=== PATIENT | male | born 1965 | race Caucasian/White ===

== ENCOUNTER 2017-06-30 09:10 | Emergency (ER) | payer OTHER, SELFPAY ==
[2017-06-30 09:15] VITALS: BP 162/102; PULSE 83; RESP 18; TEMP 36.8; O2SAT 95; BMI 33.3
--- NOTE | 2017-06-30 09:26 | XR_ITS ---
XR chest portable Ordering Physician: Rosalino Torres MD Patient Age: 52 years: Male HISTORY: ITS.REASON: chest pain TECHNIQUE: AP portable chest COMPARISON :February 20, 2016 CXR FINDINGS We again see some slight coarsening of markings toward the lung bases bilaterally similar to the 2016 study this most likely reflecting mild chronic changes. There may be slight additional atelectasis at the right base. Difficult to exclude scant infiltrate but favor atelectasis. No pneumothorax. No pleural effusion. Heart james and mediastinal structures satisfactory. Cardiac monitoring some place. Mediastinum upper normal width reflect AP projection. IMPRESSION: --------- No definitive acute findings. MILD accentuation of markings toward the lung bases bilaterally right greater than left . this appearance similar to previous chest films more likely reflecting chronic changes.
--- NOTE | 2017-06-30 09:35 | [facility].EDCP ---
ED Disposition Clinical Impression: Cervicalgia Back pain Qualifiers: Back pain location: thoracic back pain Chronicity: unspecified Back pain laterality: midline Qualified Code(s): M54.6 - Pain in thoracic spine Disposition: Home, Self-Care Condition on Discharge: Fair Additional Instructions: alternate ice and heat and continue to use whichever helps the most Prescriptions: Diclofenac Potassium [Diclofenac 50mg Tab] 50 mg PO BID 30 Days #60 tab Methocarbamol [Robaxin 750mg Tab] 750 mg PO BID 30 Days #60 tab Time of Disposition: 16:20 - Critical Care Critical Care Time: No Attestation: On , the high probability of a clinically significant, sudden or life threatening deterioration of the following system(s) required my full and direct attention, intervention and personal management. The time I documented below is in addition to time spent performing reported procedures but includes the following listed in this critical care notation. Medical Decision Making - Medical Records Medical records reviewed: Yes: I reviewed the patient's medical records. Vital Signs: 06/30/17 09:15 Temperature 98.2 F Temperature Source Oral Pulse Rate [Right Radial] 83 Respiratory Rate 18 Blood Pressure [Right Arm] 162/102 Blood Pressure Mean [Right Arm] 122 Blood Pressure Source [Right Arm] Automatic Cuff Blood Pressure Position [Right Arm] Supine 02 Sat by Pulse Oximetry 95 Oxygen Delivery Method Room Air - Lab Data Lab results reviewed: Yes: I reviewed the patient's lab results. Lab Results 06/30/17 09:55: WBC 3.8 L, RBC 5.32, Hgb 16.3, Hct 49.0, MCV 92.1, MCH 30.7, MCHC 33.3, RDW 13.8, Plt Count 179, MPV 8.3, Neut % (Auto) 65.6, Lymph % (Auto) 20.3, Curry % (Auto) 10.0 H, Eos % (Auto) 3.6, Baso % (Auto) 0.4, Neut # (Auto) 2.5, Lymph # (Auto) 0.8, Curry # (Auto) 0.4, Eos # (Auto) 0.1, Baso # (Auto) 0.0 06/30/17 09:55: Sodium 140, Potassium 3.8, Chloride 105, Carbon Dioxide 28, Anion Gap 10.8, BUN 17, Creatinine 0.85, Estimated Creat Clear 132, Estimated GFR 95, Est GFR ( Amer) 115, Glucose 98, Calcium 8.5, Total Bilirubin 0.3, AST 13 L, ALT 46, Alkaline Phosphatase 124 H, Total Creatine Kinase 66, CK-MB (CK-2) < 0.5, CK-MB (CK-2) Rel Index 0.8, Troponin I < 0.02, Total Protein 7.8, Albumin 3.8, Globulin 4.0 H, Albumin/Globulin Ratio 1.0 L, Phenytoin 15.9 Result diagrams: 06/30/17 09:55 06/30/17 09:55 Orders (Tests/Meds): ED MEDICATIONS Discontinued Medications Generic Name Dose Route Start Last Admin Trade Name Freq PRN Reason Stop Dose Admin Aspirin 324 mg 06/30/17 09:28 06/30/17 10:02 Aspirin 81mg Chewable Tablet PO 06/30/17 09:29 324 mg ONCE ONE Administration Nitroglycerin 0.4 mg 06/30/17 09:28 06/30/17 10:02 Nitrostat 0.4mg Sl Tablet SL 06/30/17 09:29 1 tab ONCE ONE Administration - Radiology Data #1 Image(s): Chest Image Reviewed: Yes I reviewed the patient's radiology results, Yes I discussed the image results w/the radiologist Preliminary Findings: Normal/NAD - CT Data CT Scan: C-Spine, Chest Time Received: 16:[address] Reviewed: Yes: I have reviewed the patient's CT results, I discussed the CT results w/the radiologist, I have viewed the radiologist's interpretation Preliminary Findings: Normal/NAD - Mamadou Inquiry Pt receiving controlled substance: No Mamadou was queried for this patient: No Chest Pain HPI - General Chief Complaint: Chest Pain Stated Complaint: chest pain Time Seen by Provider: 06/30/17 09:31 Mode of Arrival: EMS Limitations: No Limitations Description of Symptoms (Recalled from ER Triage Doc. by RN): pt c/o midsternal chest pain that radiates to his left back. - History of Present Illness HPI narrative: Pt a resident at [facility] and sent to the ED today with complaints of chest pain and upper back pain. He has a history of seizures and appears to be mentally challenged and does not recall having any
--- NOTE | 2017-06-30 09:38 | ED_ITS ---
ED Disposition Clinical Impression: Cervicalgia Back pain Qualifiers: Back pain location: thoracic back pain Chronicity: unspecified Back pain laterality: midline Qualified Code(s): M54.6 - Pain in thoracic spine Disposition: Home, Self-Care Condition on Discharge: Fair Additional Instructions: alternate ice and heat and continue to use whichever helps the most Prescriptions: Diclofenac Potassium [Diclofenac 50mg Tab] 50 mg PO BID 30 Days #60 tab Methocarbamol [Robaxin 750mg Tab] 750 mg PO BID 30 Days #60 tab Time of Disposition: 16:20 - Critical Care Critical Care Time: No Attestation: On , the high probability of a clinically significant, sudden or life threatening deterioration of the following system(s) required my full and direct attention, intervention and personal management. The time I documented below is in addition to time spent performing reported procedures but includes the following listed in this critical care notation. Medical Decision Making - Medical Records Medical records reviewed: Yes: I reviewed the patient's medical records. Vital Signs: 06/30/17 09:15 Temperature 98.2 F Temperature Source Oral Pulse Rate [Right Radial] 83 Respiratory Rate 18 Blood Pressure [Right Arm] 162/102 Blood Pressure Mean [Right Arm] 122 Blood Pressure Source [Right Arm] Automatic Cuff Blood Pressure Position [Right Arm] Supine 02 Sat by Pulse Oximetry 95 Oxygen Delivery Method Room Air - Lab Data Lab results reviewed: Yes: I reviewed the patient's lab results. Lab Results 06/30/17 09:55: WBC 3.8 L, RBC 5.32, Hgb 16.3, Hct 49.0, MCV 92.1, MCH 30.7, MCHC 33.3, RDW 13.8, Plt Count 179, MPV 8.3, Neut % (Auto) 65.6, Lymph % (Auto) 20.3, Mason % (Auto) 10.0 H, Eos % (Auto) 3.6, Baso % (Auto) 0.4, Neut # (Auto) 2.5, Lymph # (Auto) 0.8, Mason # (Auto) 0.4, Eos # (Auto) 0.1, Baso # (Auto) 0.0 06/30/17 09:55: Sodium 140, Potassium 3.8, Chloride 105, Carbon Dioxide 28, Anion Gap 10.8, BUN 17, Creatinine 0.85, Estimated Creat Clear 132, Estimated GFR 95, Est GFR ( Amer) 115, Glucose 98, Calcium 8.5, Total Bilirubin 0.3 , AST 13 L, ALT 46, Alkaline Phosphatase 124 H, Total Creatine Kinase 66, CK-MB (CK-2) < 0.5, CK-MB (CK-2) Rel Index 0.8, Troponin I < 0.02, Total Protein 7.8, Albumin 3.8, Globulin 4.0 H, Albumin/Globulin Ratio 1.0 L, Phenytoin 15.9 Result diagrams: 06/30/17 09:55 06/30/17 09:55 Orders (Tests/Meds): ED MEDICATIONS Discontinued Medications Generic Name Dose Route Start Last Admin Trade Name Freq PRN Reason Stop Dose Admin Aspirin 324 mg 06/30/17 09:28 06/30/17 10:02 Aspirin 81mg Chewable Tablet PO 06/30/17 09:29 324 mg ONCE ONE Administration Nitroglycerin 0.4 mg 06/30/17 09:28 06/30/17 10:02 Nitrostat 0.4mg Sl Tablet SL 06/30/17 09:29 1 tab ONCE ONE Administration - Radiology Data #1 Image(s): Chest Image Reviewed: Yes I reviewed the patient's radiology results, Yes I discussed the image results w/the radiologist Preliminary Findings: Normal/NAD - CT Data CT Scan: C-Spine, Chest Time Received: 16:[address] Reviewed: Yes: I have reviewed the patient's CT results, I discussed the CT results w/the radiologist, I have viewed the radiologist's interpretation Preliminary Findings: Normal/NAD - Mamadou Inquiry Pt receiving controlled substance: No Mamadou was queried for this patient
[2017-06-30 10:12] LABS: Basophils % 0.4 % (0.1-2.0); Eosinophils # 0.1 K/mm3 (0.0-0.4); Eosinophils % 3.6 % (0.1-12.0); Hemoglobin 16.3 g/dL (14.1-18.0); Lymphocytes # 0.8 K/mm3 (0.7-4.5); Lymphocytes % 20.3 K/mm3 (10-50); Mean Corpuscular HGB Conc 33.3 g/dL (31.8-35.4); Mean Corpuscular Hemoglobin 30.7 pg (27.0-31.2); Mean Corpuscular Volume 92.1 fl (80-94); Mean Platelet Volume 8.3 fl (7.4-10.4); Monocytes # 0.4 K/mm3 (0.1-1.0); Neutrophils # 2.5 K/mm3 (1.8-7.8); Neutrophils % 65.6 % (37.0-80.0); Platelet Count 179 K/mm3 (142-424); Red Blood Count 5.32 M/mm3 (4.60-6.20); Red Cell Distribution Width 13.8 % (11.5-17.5); White Blood Count 3.8 K/mm3 (4.8-10.8)
[2017-06-30 10:37] LABS: Alanine Aminotransferase 46 U/L (12-78); Albumin Level 3.8 gm/dL (3.4-5.0); Alkaline Phosphatase 124 U/L (46-116); Anion Gap 10.8 mEq/L (5-15); Aspartate Amino Transferase 13 U/L (15-37); Bilirubin,Total 0.3 mg/dL (0.2-1.0); Blood Urea Nitrogen 17 mg/dL (7-18); CKMB Relative Index 0.8 U/L (0-4.0); Calcium 8.5 mg/dL (8.5-10.1); Carbon Dioxide 28 mmol/L (21.0-32.0); Chloride 105 mmol/L (98-107); Creatine Kinase 66 U/L (39-308); Creatine Kinase MB < 0.5 mg/ml (0.0-3.6); Creatinine Clearance Estimated 132 mL/min (0-300); Creatinine,Serum 0.85 mg/dL (0.70-1.30); Estimated Glomerular Filt Rate 95 ml/min (>60); GFR (African American) 115 ML/MIN (>60); Glucose 98 mg/dL (74-106); Phenytoin (Dilantin) 15.9 ug/mL (10-20); Potassium 3.8 mmoL/L (3.5-5.1); Sodium 140 mmol/L (136-145); Total Protein,Serum 7.8 gm/dL (6.4-8.2); Troponin I < 0.02 ng/ml (0.00-0.06)
--- NOTE | 2017-06-30 12:51 | CT_ITS ---
CT thoracic spine wo con Ordering Physician: Rosalino Torres MD Patient Age: 52 years: Male HISTORY: ITS.REASON: severe painhelical CT scanning performed to the thoracic spine with sagittal and coronal reconstructions on CT workstation TECHNIQUE: Helical CT scanning performed through the thoracic spine with sagittal and coronal reconstructions performed on CT workstation. COMPARISON :Previous 2 view chest 920 01/25 and 02/20/2016. Also CT chest 2016. FINDINGS The thoracic spine reveals no acute fracture. No significant change since February 08, 2016 CT chest spine reconstructions.. The spondylosis at C6/7 again noted. There is mild disc space narrowing at posterior aspect T1/T2 T2/3 and T4/5 similar to previous study. No posterior spurring or disc protrusion of note. Scant decreased height and wedging at T7 vertebral appears old and stable. Unchanged 2016 and may reflect old trauma. Mild endplate irregularities at T12 superior and inferior endplate are stable since prior studies reflects colordao node formation. Neural foramen appear patent throughout the thoracic spine. Anterior marginal osteophytes seen most evident at the mid and lower thoracic spine, anteriorly into the right. Regarding the chest otherwise note the prominent right hilum.... This appears similar and to the January 2016 exam. Reflect over elements nodes. I would note that there is decreased caliber of the airways particularly at the right and left bronchus. May reflect bronchospasm and/or some mild airway thickening is or wheezing currently? There is a small patchy area of airspace disease mainly reflecting atelectasis seen at the and possibly mild vascular congestion versus previous chest CT. The soft tissue inspiration also accentuates atelectasis and markings at lung bases. Slight groundglass opacity character is seen upper and lower lobes likely reflecting suboptimal inspiration Chest Mediastinal fat accounts for the generous width of the superior mediastinum. Thyroid upper normal ........... IMPRESSION: 1. No acute fracture or findings at the thoracic spine. No significant change thoracic spine since CT chest .. Stable multilevel Degenerative changes as briefly noted in text 2.. Compared to previous CT chest I would note rather diffuse narrowing of the airways, from sumi through right & left bronchus, to the hilar regions.-Is there wheezing?. Question if this may reflect element of bronchospasm and/or mild edematous thickening of airways.. Trachea unremarkable. 3. Lungs only partially imaged. However note Patchy airspace disease most evident at posterior posterior right lower lobe. This as well as minimal patchy areas groundglass opacity at lungs bilaterally likely reflecting less optimal inspiration and atelectasis.. No definitive consolidation or pneumonia but no pneumothorax nor pleural effusion
--- NOTE | 2017-06-30 12:51 | CT_ITS ---
CT cervical spine wo con Ordering Physician: Rosalino Torres MD Patient Age: 52 years: Male HISTORY: ITS.REASON: severe pain TECHNIQUE: Helical CT scanning performed the cervical spine with sagittal and coronal reconstructions on CT workstation. COMPARISON :No previous cervical studies FINDINGS The cervical spine is intact with no fracture nor subluxation. Degenerative changes C-spine are evident with cervical spondylosis and disc space narrowing most evident at C 6/7 at the C-spine. Foraminal encroachment most evident to the left more so than right at this C6/7 level due to the spurring. Mild/moderate central canal stenosis Uncovertebral joint hypertrophy to the right and left encroach upon the neural foramen bilaterally Less pronounced uncovertebral joint hypertrophy at C4/5 and C3/4 yielding mild encroachment upon the foramen bilaterally at these levels as well.. Nonspecific straightening C-spine. Prevertebral soft tissues appear normal. C1-C2 relationships appear normal. Facets appear intact with normal relationships. Only scant degenerative facet changes. Appear to be some redundant soft tissues about the hypopharynx and oropharynx with moderate to generous tonsils noted. Prominent cerumen at the left external canal. Large patient. IMPRESSION: ------ No acute fracture nor subluxation at cervical spine. Degenerative changes and cervical spondylosis as above. Most notable cervical spondylosis and foraminal encroachment at C6/7 , left> right
[2017-06-30 16:34] VITALS: BP 132/80; PULSE 80; RESP 18; TEMP 36.7; O2SAT 99
== END 2017-06-30 16:37 | disposition home or self-care (01) ==
PROVIDERS: Emergency Provider General Practice
DX: M54.2 Cervicalgia (principal); M54.6 Pain in thoracic spine; R07.9 Chest pain, unspecified; E11.9 Type 2 diabetes mellitus without complications; Z79.899 Other long term (current) drug therapy
CPT/HCPCS: 71045; 72125; 72128; 80053; 80185; 82550; 82553; 84484; 85025; 93005; 99282

== ENCOUNTER 2019-10-16 13:22 | Emergency (ER) | payer MEDICAID, SELFPAY ==
[2019-10-16 13:23] VITALS: BP 126/84; PULSE 75; RESP 16; TEMP 37.2; O2SAT 98; BMI 28.8
--- NOTE | 2019-10-16 13:33 | ECG_ITS ---
APPROVED REPORT Exam: Resting ECG HR:74 bpm ECG Measurements Heart Rate 74 AXES WV 148 P 39 QRSd 74 QRS 8 QT 376 T 44 QTc 417 <Conclusion> Normal sinus rhythm Incomplete RBBB Otherwise a Normal ECG Electronically signed by : Cuate Ramirez, 10/18/2019 08:58:40
--- NOTE | 2019-10-16 13:33 | XR_ITS ---
PROCEDURE: XR CHEST PORTABLE Patient Age:54Y CLINICAL HISTORY: chest pain COMPARISON: CXR1VP XR chest portable from 06/30/[address] chest wo con from 11/21/2017 CXR2V XR chest 2V from 11/21/2017 CXR2V XR chest 2V from 08/13/2018 FINDINGS: This is an AP semi-erect portable CXR and is compared to 08/13/2018 and November 2017 CXR On today's lordotic projection a left cervical rib measuring to 3.3 cm length incidentally noted. Small smaller short right cervical rib likely present as well. . Heart appears mildly enlarged but this may be accentuated by the AP portable and rather lordotic projection.. Normal pulmonary vascularity. Lungs otherwise clear with no focal consolidation or pneumonia. No lesions evident no pleural effusion or pneumothorax. Chest wall unremarkable. . IMPRESSION: Nothing definitely acute Lungs clear on this AP semi-erect somewhat lordotic portable chest . Heart upper normal in size Cervical rib on left most evident Dictated by: Grayson Macedo MD 10/16/2019 15:31 Electronically signed by Grayson Macedo MD in [place] 10/16/2019 15:31
--- NOTE | 2019-10-16 13:36 | [facility].EDGENADL ---
ED Disposition Clinical Impression: Lung abnormality Chest pain Qualifiers: Chest pain type: unspecified Qualified Code(s): R07.9 - Chest pain, unspecified Abdominal pain Qualifiers: Abdominal location: upper abdomen, unspecified Qualified Code(s): R10.10 - Upper abdominal pain, unspecified Vomiting Qualifiers: Vomiting type: unspecified Vomiting Intractability: non-intractable Nausea presence: with nausea Qualified Code(s): R11.2 - Nausea with vomiting, unspecified Disposition: Home, Self-Care Condition on Discharge: Good Instructions: DI for Chest Pain, DI for Abdominal Pain-Adult, DI for Vomiting -- Adult Additional Instructions: You will need to follow-up with your primary care provider concerning your lung abnormality within the next 2 to 3 days for reevaluation and further management. Drink plenty of water and non-caffeinated fluids, return to the emergency department for any acute new concerns or worsening symptoms. Referrals: Woodrow Perez MD [Primary Care Provider] - 3 days - Critical Care Critical Care Time: No Attestation: On 10/16/19, the high probability of a clinically significant, sudden or life threatening deterioration of the following system(s) required my full and direct attention, intervention and personal management. The time I documented below is in addition to time spent performing reported procedures but includes the following listed in this critical care notation. Medical Decision Making - Medical Records Medical records reviewed: Yes: I reviewed the patient's medical records. - Mamadou Inquiry Pt receiving controlled substance: No Vital Signs: 10/16/19 13:23 10/16/19 14:07 10/16/19 15:18 Temperature 99 F Temperature Source Oral Pulse Rate [Left Radial] 75 67 63 Respiratory Rate 16 Blood Pressure [Right Arm] 126/84 126/83 137/88 Blood Pressure Mean [Right Arm] 98 97 104 Blood Pressure Source [Right Arm] Automatic Cuff Automatic Cuff Blood Pressure Position [Right Arm] Sitting Sitting Sitting 02 Sat by Pulse Oximetry 98 96 96 Oxygen Delivery Method Room Air Room Air Room Air 10/16/19 15:41 Temperature Temperature Source Pulse Rate [Left Radial] 64 Respiratory Rate Blood Pressure [Right Arm] 134/88 Blood Pressure Mean [Right Arm] 103 Blood Pressure Source [Right Arm] Automatic Cuff Blood Pressure Position [Right Arm] Sitting 02 Sat by Pulse Oximetry 95 Oxygen Delivery Method Room Air - Lab Data Lab Results 10/16/19 13:30: WBC 4.4 L, RBC 5.00, Hgb 16.1, Hct 48.2, MCV 96.4 H, MCH 32.2 H, MCHC 33.4, RDW 14.5, Plt Count 181, MPV 8.3, Neut % (Auto) 64.4, Lymph % (Auto) 23.3, Norton % (Auto) 8.0, Eos % (Auto) 3.6, Baso % (Auto) 0.8, Neut # (Auto) 2.8, Lymph # (Auto) 1.0, Norton # (Auto) 0.4, Eos # (Auto) 0.2, Baso # (Auto) 0.0 10/16/19 13:30: Sodium 140, Potassium 4.0, Chloride 104, Carbon Dioxide 30, Anion Gap 10.0, BUN 19, Creatinine 0.90, Estimated Creat Clear 116, Estimated GFR 88, Est GFR ( Amer) 107, Glucose 118 H, Calcium 9.1, Total Bilirubin 0.4, AST 31, ALT 47, Alkaline Phosphatase 127 H, Troponin I < 0.01, Total Protein 7.9, Albumin 4.5, Globulin 3.4 H, Albumin/Globulin Ratio 1.3, Lipase 41 10/16/19 16:00: Urine Color Yellow, Urine Appearance Clear, Urine pH 7.5, Ur Specific [place] 1.010, Urine Protein Negative, Urine Glucose (UA) Negative, Urine Ketones Negative, Urine Blood Negative, Urine Nitrate Negative, Urine Bilirubin Negative, Urine Urobilinogen 0.2, Ur Leukocyte Esterase Negative, Urine RBC None, Urine WBC None, Ur Squamous Epith Cells Occasional, Urine Bacteria None Result diagrams: 10/16/19 13:30 10/16/19 13:30 Orders (Tests/Meds): ED MEDICATIONS Discontinued Medications Generic Name Dose Route Start Last Admin Trade Name Freq PRN Reason Stop Dose Admin Sodium Chloride 1,000 mls @ 999 mls/hr 10/16/19 13:45 10/16/19 13:44 Sod Chlor 0.9% 1000ml Bag IV 10/16/19 14:45 999 mls/hr .Q1H1M GRANT Administration Ioversol 7
[2019-10-16 13:48] LABS: Basophils % 0.8 % (0.1-2.0); Eosinophils # 0.2 K/mm3 (0.0-0.4); Eosinophils % 3.6 % (0.1-12.0); Hematocrit 48.2 % (42.0-52.0); Hemoglobin 16.1 g/dL (14.1-18.0); Lymphocytes % 23.3 % (10-50); Mean Corpuscular HGB Conc 33.4 g/dL (31.8-35.4); Mean Corpuscular Hemoglobin 32.2 pg (27.0-31.2); Mean Corpuscular Volume 96.4 fl (80-94); Mean Platelet Volume 8.3 fl (7.4-10.4); Monocytes # 0.4 K/mm3 (0.1-1.0); Neutrophils # 2.8 K/mm3 (1.8-7.8); Neutrophils % 64.4 % (37.0-80.0); Platelet Count 181 K/mm3 (142-424); Red Cell Distribution Width 14.5 % (11.5-17.5); White Blood Count 4.4 K/mm3 (4.8-10.8)
[2019-10-16 13:50] LABS: Chloride 104 mmol/L (98-107); Sodium 140 mmol/L (136-145)
[2019-10-16 13:52] LABS: Alanine Aminotransferase 47 U/L (12-78); Aspartate Amino Transferase 31 U/L (17-59); Blood Urea Nitrogen 19 mg/dl (9-20); Creatinine Clearance Estimated 116 mL/min (50-200); Estimated Glomerular Filt Rate 88 ml/min (>60); GFR (African American) 107 ML/MIN (>60)
[2019-10-16 13:53] LABS: Albumin Level 4.5 g/dl (3.5-5.0); Albumin/Globulin Ratio 1.3 (1.1-1.8); Alkaline Phosphatase 127 U/L (38-126); Bilirubin,Total 0.4 mg/dl (0.2-1.3); Calcium 9.1 mg/dl (8.4-10.2); Carbon Dioxide 30 mmol/L (22.0-30.0); Globulin 3.4 g/dL (1.3-3.2); Glucose 118 mg/dl (74-100); Lipase 41 U/L (23-300); Total Protein,Serum 7.9 g/dl (6.3-8.2)
--- NOTE | 2019-10-16 14:00 | CT_ITS ---
Procedure: CT ABDOMEN PELVIS W CON Patient Age:54Y CLINICAL INDICATION: abd pain, vomiting. Vomiting nausea COMPARISON: [facility] CT CHEST W/ CONTRAST from 11/04/2012 ABDPELW/O CT ABD PELVIS W/O CONTRAST from 10/24/2013 [facility] CTA-CHEST from 09/02/[address] chest wo con from 11/21/2017 TECHNIQUE: IV contrast: 75 cc Optiray 350. No oral contrast Helical axial images obtained with sagittal and coronal reformats. All CT scans at the facility use one or more dose reduction, viz: automated exposure control, ma/kV adjustment per patient size (including targeted exams where dose is matched to indication, i.e. head), or iterative reconstruction technique. FINDINGS: Lower thorax: Partially imaged generous right james appears slight prominent today. Generous right james with multiple calcified granulomatous nodes dates back to October 2012, August 2014 CT chest and November 2017. These calcified granulomatous nodes in part contribute to the generous right james but there is also a 11 mm low-density, near fluid density ovoid collection with moderate thick wall margin at right infrahilar region seen back on 2012.. This latter near fluid density with circumferential wall right infrahilar region is again seen today and appears slightly larger. Outer diameter measuring up to 2 cm. (Axial image 10, sagittal 44, coronal 46, 47)-overall right james and infrahilar region slight more generous and more prominent appearance, than previous studies. Also suspect partial blockage a lower lobe bronchus as noted on 2013 CT.. Recommend follow-up CT chest when feasible this can be done as outpatient with of this will benefit from follow-up as outpatient of possibly with pulmonary. Would suggests of subsequent CT chest with contrast as outpatient along with pulmonary consult as a may want to consider bronchoscopy at some point . Minimal airspace disease at posterior sulcus and along posterior aspect of RLL at right lung base. Of favor this reflects atelectasis but difficult to totally exclude minimal infiltrate. The left base with only scant if any atelectasis. . Borderline-mild cardiomegaly. Upper normal wall thickness distal esophagus. ABDOMEN: Liver: No masses or biliary dilatation. Gallbladder: Surgically removed. Common duct normal Pancreas: Unremarkable.. Spleen unremarkable Adrenals: unremarkable Kidneys/ureters: unremarkable PELVIS: Small urinary bladder. No calculi. No focal lesions evident. Prostate normal size. No free fluid pelvis. ---------GI tract -- Appendix well visualized and normal. Terminal ileum unremarkable Large bowel. Minimal stool right colon. Generous gas slightly distends hepatic flexure. Moderate gas throughout transverse colon. . Fairly empty descending colon.. Minimal stool throughout rectum Small bowel. No dilatation or obstruction. A few small to moderate air-fluid levels but the lower small bowel. Unimpressive the nonspecific.. No significant small nor large bowel wall thickening or inflammation. Stomach. Mild distension with moderate solid food Peritoneum: No abnormal fluid collections. No obvious inflammatory changes. No free air. Lymph nodes: No enlarged lymph nodes apparent. No remarkable mesenteric lymph nodes no on which a comes Vasculature: Unremarkable.. Aorta iliacs celiac artery and SMA satisfactory. No remarkable plaque Bones: No acute fracture. Degenerative changes L5/S1 disc space narrowing spondylosis disc bulge with facet hypertrophy most notable evident L5/S1 these features combine to yield moderate bilateral foraminal encroachment at this level.. Gradual progression degenerative changes here since 2014 IMPRESSION: A no acute findings abd
[2019-10-16 14:05] LABS: Troponin I < 0.01 ng/ml (0.00-0.034)
[2019-10-16 14:07] VITALS: BP 126/83; PULSE 67; O2SAT 96
--- NOTE | 2019-10-16 14:12 | PC.NURSE ---
Pt to rad.
--- NOTE | 2019-10-16 14:51 | PC.NURSE ---
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
[2019-10-16 15:18] VITALS: BP 137/88; PULSE 63; O2SAT 96
[2019-10-16 15:41] VITALS: BP 134/88; PULSE 64; O2SAT 95
[2019-10-16 16:06] LABS: Appearance,Urine CLEAR (Clear); Bilirubin,Urine Negative (Negative); Blood, Urine Negative (Negative); Color,Urine YELLOW (Yellow); Glucose,Urine (UA) Negative (Negative); Ketones,Urine Negative (Negative); Leukocyte Esterase,Urine Negative (Negative); Microscopic, Urine URINE MICROSCOPIC (MICROSCOPIC); Nitrate,Urine Negative (Negative); PH,Urine 7.5 (5.0-8.5); Protein,Urine Negative (Negative); Urobilinogen,Urine 0.2 EU/dl (0.2)
[2019-10-16 16:17] LABS: Squamous Epithelial Cell,Urine Occasional #/hpf (0-5)
--- NOTE | 2019-10-16 16:31 | PC.NURSE ---
Fletcher Melton aware that pt is ready for discharge.
[2019-10-16 16:37] VITALS: BP 142/73; PULSE 63; O2SAT 97
[2019-10-16 17:02] VITALS: BP 153/87; PULSE 87; RESP 16; TEMP 36.1; O2SAT 98
== END 2019-10-16 17:03 | disposition home or self-care (01) ==
PROVIDERS: Emergency Provider Emergency Medicine; PCP Emergency Medicine
DX: J98.4 Other disorders of lung (principal); R07.9 Chest pain, unspecified; R10.10 Upper abdominal pain, unspecified; E11.9 Type 2 diabetes mellitus without complications; Z79.899 Other long term (current) drug therapy
CPT/HCPCS: 71045; 74177; 80053; 81001; 83690; 84484; 85025; 93005; 96365; 96375; 99284; J2405; Q9967

== ENCOUNTER 2020-05-04 07:37 | Emergency (ER) | payer MEDICAID, SELFPAY ==
[2020-05-04] VITALS (8 sets, daily range): BP systolic 133–168; BP diastolic 53–101; PULSE 60–81; RESP 15–17; TEMP 37.2; O2SAT 92–98; BMI 32.3
--- NOTE | 2020-05-04 07:53 | XR_ITS ---
PROCEDURE: XR CHEST PORTABLE CLINICAL HISTORY: coughing up blood COMPARISON: CR CXR2V XR chest 2V from 11/21/2017 CR CXR2V XR chest 2V from 08/13/2018 CR XR CHEST PORTABLE from 10/16/[address] ANGIO CHEST from 05/04/2020 FINDINGS: The cardiomediastinal silhouette and pulmonary vascularity are within normal limits. There is mild prominence of the right hilum . No lobar consolidation or collapse. IMPRESSION: Prominence of the right hilum otherwise negative Dictated by: Rainer Garza MD 05/04/2020 14:04 Rainer Garza MD in [place] 05/04/2020 14:04
--- NOTE | 2020-05-04 07:55 | CT_ITS ---
PROCEDURE: CT ABDOMEN PELVIS W CON CLINICAL INDICATION: diarrhea, abd pain, COMPARISON: CT ABDPELW/O CT ABD PELVIS W/O CONTRAST from 12/20/[address] ABDOMEN PELVIS W CON from 10/16/2019 TECHNIQUE: IV Contrast: 75ML Isovue 370 Oral Contrast None Axial images obtained with sagittal and coronal reformats. All CT scans at the facility use one or more dose reduction, viz: automated exposure control, ma/kV adjustment per patient size (including targeted exams where dose is matched to indication, i.e. head), or iterative reconstruction technique. FINDINGS: There has been a prior cholecystectomy. There is a sub cm hypodensity in the left hepatic lobe. This is slightly more prominent compared to the previous exam measuring 6 mm previously measuring 4 mm possibly due to slice orientation. The spleen, adrenal glands, pancreas, and kidneys have an unremarkable appearance. There is minimal ectasia of the renal collecting system on both sides nonspecific. No ureteral calculi are evident. There is a small hiatal hernia. There is mild diffuse thickening of the colon from the transverse colon, descending colon and proximal sigmoid colon. Colitis is considered. No evidence of appendicitis. No evidence of diverticulitis. Bowel gas pattern is nonspecific with nondistended fluid-filled loops of small bowel in the mid to lower abdominal region. No pelvic mass or abnormal fluid collection of the pelvis. There are degenerative changes in the lumbar spine with degenerative disc disease at L5-S1 with prominent endplate osteophytes causing severe bilateral foraminal narrowing and lateral recess narrowing. There is a small umbilical hernia which contains fat. IMPRESSION: 1. Possible enterocolitis. 2. Nonspecific hypodensity left hepatic lobe slightly more prominent from the previous exam possibly due to slice orientation. Continued follow-up may confirm. Dictated by: Rainer Garza MD 05/04/2020 10:10 Rainer Garza MD in [facility] 05/04/2020 10:10
--- NOTE | 2020-05-04 08:05 | HMH.EDGENADL ---
ED Disposition Clinical Impression: Mass of right lung, Hemoptysis Disposition: Home, Self-Care Condition on Discharge: Fair Instructions: DI for Hemoptysis Additional Instructions: Dr. Perez will arrange further evaluation and bronchoscopy. Return to the emergency department if shortness of breath or severe coughing of large amounts of blood. Referrals: PCP,No [Non-Staff] - - Critical Care Critical Care Time: No Attestation: On 05/04/20, the high probability of a clinically significant, sudden or life threatening deterioration of the following system(s) required my full and direct attention, intervention and personal management. The time I documented below is in addition to time spent performing reported procedures but includes the following listed in this critical care notation. Medical Decision Making - Medical Records Medical records reviewed: Yes: I reviewed the patient's medical records. MR Comment: November 2017 aspirated chicken McNugget. Chart reviewed. - Mamadou Inquiry Pt receiving controlled substance: No Vital Signs: 05/04/20 07:37 05/04/20 08:07 05/04/20 08:51 Temperature 99.0 F Temperature Source Oral Pulse Rate [Right Brachial] 67 64 65 Respiratory Rate 15 Blood Pressure [Right Arm] 133/95 H 155/69 H 133/53 L Blood Pressure Mean [Right Arm] 107 97 79 Blood Pressure Source [Right Arm] Automatic Cuff Blood Pressure Position [Right Arm] Supine 02 Sat by Pulse Oximetry 94 L 92 L 95 Oxygen Delivery Method Room Air Room Air Room Air 05/04/20 09:00 05/04/20 09:56 05/04/20 10:30 Temperature Temperature Source Pulse Rate [Right Brachial] 60 68 73 Respiratory Rate 15 15 Blood Pressure [Right Arm] 147/92 H 160/90 H 146/101 H Blood Pressure Mean [Right Arm] 110 113 116 Blood Pressure Source [Right Arm] Automatic Cuff Blood Pressure Position [Right Arm] Sitting 02 Sat by Pulse Oximetry 95 96 96 Oxygen Delivery Method Room Air Room Air Room Air - Lab Data Lab Results 05/04/20 07:40: Urine Color Yellow, Urine Appearance Clear, Urine pH 6.0, Ur Specific [place] 1.025, Urine Protein Negative, Urine Glucose (UA) Negative, Urine Ketones Negative, Urine Blood Negative, Urine Nitrate Negative, Urine Bilirubin Negative, Urine Urobilinogen 0.2, Ur Leukocyte Esterase Negative, Urine RBC None, Urine WBC Occasional, Ur Squamous Epith Cells Occasional, Urine Bacteria Trace 05/04/20 08:15: WBC 5.0, RBC 4.90, Hgb 15.4, Hct 47.0, MCV 95.9 H, MCH 31.5 H, MCHC 32.8, RDW 14.3, Plt Count 157, MPV 8.6, Neut % (Auto) 64.0, Lymph % (Auto) 24.6, [place] % (Auto) 6.6, Eos % (Auto) 4.2, Baso % (Auto) 0.7, Neut # (Auto) 3.2, Lymph # (Auto) 1.2, [place] # (Auto) 0.3, Eos # (Auto) 0.2, Baso # (Auto) 0.0 05/04/20 08:15: Sodium 140, Potassium 3.9, Chloride 105, Carbon Dioxide 30, Anion Gap 8.9, BUN 18, Creatinine 0.90, Estimated Creat Clear 120, Estimated GFR 88, Est GFR ( Amer) 106, Glucose 95, Calcium 8.9, Total Bilirubin 0.5, AST 27, ALT 39, Alkaline Phosphatase 108, Total Protein 7.4, Albumin 4.2, Globulin 3.2, Albumin/Globulin Ratio 1.3, Amylase 63, Lipase 41, Phenytoin 17.8 05/04/20 08:15: SARS-CoV-2 IgG Ab (Rapid) Negative, SARS-CoV-2 IgM Ab (Rapid) Negative 05/04/20 08:15: Lactate 1.2 Result diagrams: 05/04/20 08:15 05/04/20 08:15 Orders (Tests/Meds): ED MEDICATIONS Generic Name Dose Route Start Last Admin Trade Name Freq PRN Reason Stop Dose Admin Sodium Chloride 3 ml 05/04/20 08:18 Sodium Chloride 3% 15ml Neb IH 06/03/20 08:17 ONCE PRN INDUCE SPUTUM COLLECTION Discontinued Medications Generic Name Dose Route Start Last Admin Trade Name Freq PRN Reason Stop Dose Admin Sodium Chloride 1,000 mls @ 999 mls/hr 05/04/20 08:00 05/04/20 08:26 Sod Chlor 0.9% 1000ml Bag IV 05/04/20 09:00 999 mls/hr .Q1H1M GRANT Administration Iopamidol 75 ml 05/04/20 09:30 05/04/20 09:31 Iopamidol-370 (76%);100ml Bottle IV 05/04/20 09:31 75 ml ONCE ONE Administration
--- NOTE | 2020-05-04 08:05 | CT_ITS ---
PROCEDURE: CT ANGIO CHEST CLINCIAL INDICATION: hemoptysis COMPARISON: CT CHESTWO CT chest wo con from 11/21/2017 CR XR CHEST PORTABLE from 05/04/2020 TECHNIQUE: IV Contrast: 70ML Isovue 370 Axial images obtained with sagittal and coronal reformats. All CT scans at the facility use one or more dose reduction, viz: automated exposure control, ma/kV adjustment per patient size (including targeted exams where dose is matched to indication, i.e. head), or iterative reconstruction technique. FINDINGS: There is mild prominence of the right lobe of the thyroid gland nonspecific. No evidence of aortic aneurysm or dissection. No evidence of pulmonary embolus. Peripheral pulmonary vessels are not well opacified. There has been development of a right hilar mass in the infrahilar region. This measures 3.8 by 2 cm. This is causing some narrowing of the inferior pulmonary vein on the right. This is encasing the medial basilar segmental artery to the right lower lobe. There is some heterogeneous density within the pulmonary arteries at this region but no definite embolus. There is some coarse calcification noted within the mass. The mass encircles the right lower lobe bronchus causing some narrowing of the right lower lobe bronchus. There is mild diffuse narrowing of the distal trachea and right and left mainstem bronchi. Degenerative changes are present in thoracic spine. IMPRESSION: 1. Right infrahilar mass suspicious for neoplasm. Suggest pulmonary consult. The mass may be amenable to biopsy by bronchoscopy. 2. No definite pulmonary embolus. 3. Diffuse decreased AP dimension of the trachea and mainstem bronchi which may be seen with tracheal bronchomalacia. Dictated by: Rainer Garza MD 05/04/2020 10:03 Rainer Garza MD in [place] 05/04/2020 10:03
[2020-05-04 08:06] LABS: Microscopic, Urine URINE MICROSCOPIC (MICROSCOPIC)
[2020-05-04 08:14] LABS: Appearance,Urine CLEAR (Clear); Bilirubin,Urine Negative (Negative); Blood, Urine Negative (Negative); Color,Urine YELLOW (Yellow); Glucose,Urine (UA) Negative (Negative); Ketones,Urine Negative (Negative); Leukocyte Esterase,Urine Negative (Negative); Nitrate,Urine Negative (Negative); Protein,Urine Negative (Negative); Specific Gravity, Urine 1.025 (1.005-1.030); Urobilinogen,Urine 0.2 EU/dl (0.2)
[2020-05-04 08:23] LABS: Bacteria,Urine Trace /lpf; Squamous Epithelial Cell,Urine Occasional #/hpf (0-5); WBC,Urine Occasional #/hpf (0-3)
[2020-05-04 08:28] LABS: Basophils % 0.7 % (0.1-2.0); Eosinophils # 0.2 K/mm3 (0.0-0.4); Eosinophils % 4.2 % (0.1-12.0); Hemoglobin 15.4 g/dL (14.1-18.0); Lymphocytes # 1.2 K/mm3 (0.7-4.5); Lymphocytes % 24.6 % (10-50); Mean Corpuscular HGB Conc 32.8 g/dL (31.8-35.4); Mean Corpuscular Hemoglobin 31.5 pg (27.0-31.2); Mean Corpuscular Volume 95.9 fl (80-94); Mean Platelet Volume 8.6 fl (7.4-10.4); Monocytes # 0.3 K/mm3 (0.1-1.0); Monocytes % 6.6 % (1.7-9.3); Neutrophils # 3.2 K/mm3 (1.8-7.8); Platelet Count 157 K/mm3 (142-424); Red Cell Distribution Width 14.3 % (11.5-17.5)
[2020-05-04 08:38] LABS: Lactic Acid 1.2 mmol/L (0.7-2.1)
[2020-05-04 08:39] LABS: Chloride 105 mmol/L (98-107); Potassium 3.9 mmoL/L (3.5-5.1); Sodium 140 mmol/L (136-145)
[2020-05-04 08:41] LABS: Amylase 63 U/L (30-110); Blood Urea Nitrogen 18 mg/dl (9-20); Creatinine Clearance Estimated 120 mL/min (50-200); Estimated Glomerular Filt Rate 88 ml/min (>60); GFR (African American) 106 ML/MIN (>60)
[2020-05-04 08:42] LABS: Alanine Aminotransferase 39 U/L (12-78); Albumin Level 4.2 g/dl (3.5-5.0); Albumin/Globulin Ratio 1.3 (1.1-1.8); Alkaline Phosphatase 108 U/L (38-126); Anion Gap 8.9 mEq/L (5-15); Aspartate Amino Transferase 27 U/L (17-59); Bilirubin,Total 0.5 mg/dl (0.2-1.3); Calcium 8.9 mg/dl (8.4-10.2); Carbon Dioxide 30 mmol/L (22.0-30.0); Globulin 3.2 g/dL (1.3-3.2); Glucose 95 mg/dl (74-100); Lipase 41 U/L (23-300); Total Protein,Serum 7.4 g/dl (6.3-8.2)
[2020-05-04 09:04] LABS: Phenytoin (Dilantin) 17.8 ug/ml (10-20)
[2020-05-04 09:14] LABS: Coronavirus 19 IgG Antibody Negative (Negative); Coronavirus 19 IgM Antibody Negative (Negative)
--- NOTE | 2020-05-04 09:20 | PC.NURSE ---
Pt to rad.
--- NOTE | 2020-05-04 09:42 | PC.NURSE ---
Pt returned from rad.
--- NOTE | 2020-05-04 10:43 | PC.NURSE ---
speaking with dr wayne
--- NOTE | 2020-05-04 10:44 | PC.NURSE ---
Dr Starks speaking with dr Perez
--- NOTE | 2020-05-04 11:59 | PC.NURSE ---
notified [facility] staff kena that pt is ready for discharge.
--- NOTE | 2020-05-04 12:18 | PC.NURSE ---
pt waiting on his ride, has been discharged, refuses to wear bp cuff and pulse ox
== END 2020-05-04 12:41 | disposition home or self-care (01) ==
PROVIDERS: Emergency Provider Emergency Medicine; PCP Emergency Medicine
DX: R91.8 Other nonspecific abnormal finding of lung field (principal); R04.2 Hemoptysis; Z01.84 Encounter for antibody response examination; H54.8 Legal blindness, as defined in USA; K21.9 Gastro-esophageal reflux disease without esophagitis; J45.909 Unspecified asthma, uncomplicated; E11.9 Type 2 diabetes mellitus without complications; I10 Essential (primary) hypertension; F20.9 Schizophrenia, unspecified; F17.210 Nicotine dependence, cigarettes, uncomplicated; Z79.899 Other long term (current) drug therapy
CPT/HCPCS: 71045; 71275; 74177; 80053; 80185; 81001; 82150; 83605; 83690; 85025; 86328; 87040; 96365; 99284; Q9967

== ENCOUNTER → 2020-05-22 09:43 | Outpatient (CLI) | payer MEDICAID, SELFPAY ==
[2020-05-22 11:11] LABS: Coronavirus 19 IgG Antibody Negative (Negative); Coronavirus 19 IgM Antibody Negative (Negative)
--- NOTE | 2020-05-24 13:18 | P.PN_ITS ---
[facility] Anesthesia Checklist - Patient Identification Patient Identification: Arm Band - Structural Data Admitted From: Long-term Nursing [facility] Planned Operative Procedure/s: bronchoscopy Consent for Planned Operative Procedure(s) Verified: Yes Verified Documents: Surgical Consent - NPO Status Verified Time NPO: 00:00 - Anesthesia Plan Anesthesia Risk discussed: Yes Anesthesia Plan: Verified Anesthesia Type: General - Preoperative Comments Pre-Operative Comments: non [facility] History I have reviewed the patient's past medical history: Yes Medical History: Reports:: Hypertension Denies:: Cancer, Diabetes Mellitus Type 1, Diabetes Mellitus Type 2, MRSA Comment Only: Seizures (UNKNOWN) *Have you ever received a pneumonia vaccine?: No *Have you received a flu vaccine this season?: Yes Anesthesia experience/problems:: non Other Surgeries: Yes: Other Amputation: No - *Social History Smoking Status: Never smoker Tobacco Type: cigarettes # Packs/Day (cigarettes): 1 Alcohol Intake: never Alcohol Intake Frequency:: 0-2 drinks per day Substance Use Type: denies use *Occupational Status:: disabled Housing: assisted living facility Household Members: other *Travel in the last 8 weeks: None Family Hx:: Unable to obtain
== END ==
PROVIDERS: PCP Emergency Medicine; Visit Provider Internal Medicine Pulmonary Disease
DX: Z01.812 Encounter for preprocedural laboratory examination (principal); Z11.52 Encounter for screening for COVID-19; R06.00 Dyspnea, unspecified; R91.8 Other nonspecific abnormal finding of lung field; R04.2 Hemoptysis
CPT/HCPCS: 36415; 86328

== ENCOUNTER 2020-05-24 09:54 | Day surgery (SDC) | payer MEDICAID, SELFPAY ==
[2020-05-24] VITALS (8 sets, daily range): BP systolic 111–144; BP diastolic 59–99; PULSE 73–92; RESP 16–18; TEMP 36.3–36.8; O2SAT 92–97; BMI 38.0
--- NOTE | 2020-05-24 16:42 | HMH.BRONCH ---
- Procedure: Date: 05/24/20 Patient Date of :: 1965 Procedure Performed:: Bronchoscopy with bronchoalveolar lavage Bronchoscopy with endobronchial ultrasound with fine-needle aspiration Indications:: Right hilar mass Performing Provider:: Xuan Blount MD Referring Provider:: Dr. Perez Sedation:: General anesthesia Procedure:: Clean diagnostic bronchoscopy was advanced through this 8 and half size ET tube and airways were examined up to subsegmental bronchi patient appeared to have severe bronchomalacia with anteroposterior collapse his trachea, along with right main and left mainstem bronchi. BAL was performed in the right lower lobe medial segment where there appeared to be significant airway inflammation. BAL samples were sent for cell count differential along with bacterial fungal and AFB cultures. No cytopathology was ordered on the BAL specimen. After lavage was performed, please clean EBUS scope advance the ET tube and hilar and mediastinal lymph node stations were examined with no significant lymphadenopathy identified amendable via bronchoscopy. The noted right hilar mass was visualized from the right lower lobe bronchus and FNA was performed via EBUS scope. A total of 5 passes were performed to recreate tissue. Pathology was onsite. No evidence of malignancy noted in the preliminary review. Pathologist have seen significant neutrophils and pus which is concerning for infection. Along with cytopathology EBUS samples were also sent for bacterial fungal and AFB cultures. Patient tolerated the procedure well. Estimated blood loss is minimal. We will follow the patient in the clinic as previously scheduled. Findings:: Please see the procedure note Recommendations:: Please see the procedure note Complications:: None Estimated blood obtained (mL): 5
== END 2020-05-24 16:37 | disposition home or self-care (01) ==
LOC: OR 09:56
PROVIDERS: PCP Emergency Medicine; Visit Provider Internal Medicine Pulmonary Disease
PROC: (CPT 31624; principal; 2020-05-24 11:30)
DX: R91.8 Other nonspecific abnormal finding of lung field (principal); R04.2 Hemoptysis; R59.0 Localized enlarged lymph nodes; Z79.899 Other long term (current) drug therapy
CPT/HCPCS: 31624; 31653; 87070; 87077; 87102; 87116; 87186; 87205; 87206; 89051; J0330; J2405

== ENCOUNTER → 2020-07-27 13:02 | Outpatient (CLI) | payer MEDICAID, SELFPAY ==
--- NOTE | 2020-07-27 13:04 | CT_ITS ---
PROCEDURE: CT CHEST W CON CLINCAL INDICATION: Nodule follwoup, follow-up hilar mass Abnormal CTA chest 05/04/20 COMPARISON: CT CT ANGIO CHEST from 05/04/2020 TECHNIQUE: IV Contrast: 75ml Isovue 370 Axial images obtained with sagittal and coronal reformats. All CT scans at the facility use one or more dose reduction, viz: automated exposure control, ma/kV adjustment per patient size (including targeted exams where dose is matched to indication, i.e. head), or iterative reconstruction technique. FINDINGS: Right hilar mass is once again noted as previously described. Low-density changes are present in the central aspect of the mass. The mass encases the artery to the medial basilar segment of the right lower lobe. There some calcification noted within the mass. The hilar mass may be very slightly smaller in the AP plane. This however is questionable. The lesion does not appear larger.. Mild atelectatic changes are present in the right lower lobe. There is once again noted decreased AP diameter of the trachea and mainstem bronchi. Coronary artery calcifications are present. Upper abdominal images are unremarkable. IMPRESSION: Persistent right hilar mass which may be very slightly smaller in the AP plane. This however is at best questionable. The mass does not appear any larger. Low-density changes are present within this area. This could represent necrotic lymph nodes from neoplasm or granulomatous process such as histoplasmosis or TB. Please correlate with clinical parameters. Tracheal bronchomalacia. Dictated by: Rainer Garza MD 07/28/2020 13:16 Rainer Garza MD in [place] 07/28/2020 13:16
[2020-07-27 13:56] LABS: Blood Urea Nitrogen 17 mg/dl (9-20); Estimated Glomerular Filt Rate 88 ml/min (>60); GFR (African American) 106 ML/MIN (>60)
== END ==
PROVIDERS: PCP Emergency Medicine; Visit Provider Internal Medicine Pulmonary Disease
DX: R06.00 Dyspnea, unspecified (principal); R91.8 Other nonspecific abnormal finding of lung field
CPT/HCPCS: 36415; 71260; 82565; 84520; Q9967

== ENCOUNTER → 2020-08-03 13:37 | Outpatient (CLI) | payer MEDICAID, SELFPAY ==
[2020-08-03 14:42] LABS: Basophils % 0.5 % (0.1-2.0); Eosinophils # 0.1 K/mm3 (0.0-0.4); Eosinophils % 2.5 % (0.1-12.0); Hematocrit 45.3 % (42.0-52.0); Hemoglobin 14.7 g/dL (14.1-18.0); Lymphocytes # 0.8 K/mm3 (0.7-4.5); Lymphocytes % 17.6 % (10-50); Mean Corpuscular HGB Conc 32.4 g/dL (31.8-35.4); Mean Corpuscular Hemoglobin 30.8 pg (27.0-31.2); Mean Corpuscular Volume 95.2 fl (80-94); Mean Platelet Volume 8.4 fl (7.4-10.4); Monocytes # 0.3 K/mm3 (0.1-1.0); Monocytes % 6.2 % (1.7-9.3); Neutrophils # 3.2 K/mm3 (1.8-7.8); Neutrophils % 73.3 % (37.0-80.0); Platelet Count 187 K/mm3 (142-424); Red Blood Count 4.76 M/mm3 (4.60-6.20); Red Cell Distribution Width 14.3 % (11.5-17.5); White Blood Count 4.4 K/mm3 (4.8-10.8)
[2020-08-03 15:11] LABS: Erythrocyte Sedimentation Rate 2 mm/hr (0-20)
[2020-08-03 15:42] LABS: C-Reactive Protein 9.4 mg/L (0-4)
[2020-08-07 17:09] LABS: Histoplasma Gal'mannan Ag Ur <0.5 (<0.5 ng/mL)
[2020-08-08 02:14] LABS: QuantiFERON-TB Gold Plus Negative (Negative)
[2020-08-08 21:07] LABS: Aspergillus flavus Negative (Neg:<1:1); Aspergillus fumigatus Negative (Neg:<1:1); Aspergillus niger Negative (Neg:<1:1)
[2020-08-09 18:02] LABS: Blastomyces Antibody Negative (Neg:<1:1); Fungitell(Beta D-Glucan) Serum 34 pg/mL (<80)
[2020-08-10 08:39] LABS: Aspergillus Antigen, BAL/Serum 0.03 Index (0.00-0.49)
== END ==
PROVIDERS: Visit Provider Internal Medicine Pulmonary Disease
DX: J45.909 Unspecified asthma, uncomplicated (principal); J84.10 Pulmonary fibrosis, unspecified; J18.9 Pneumonia, unspecified organism; J84.9 Interstitial pulmonary disease, unspecified; R06.00 Dyspnea, unspecified
CPT/HCPCS: 36415; 85025; 85651; 86140; 86480; 86606; 86612; 87305; 87385; 87449

== ENCOUNTER 2020-09-26 06:04 | Emergency (ER) | payer MEDICAID, SELFPAY ==
--- NOTE | 2020-09-26 06:08 | ECG_ITS ---
APPROVED REPORT Exam: Resting ECG HR:69 bpm ECG Measurements Heart Rate 69 AXES LA 142 P 52 QRSd 76 QRS 27 QT 400 T 35 QTc 428 Conclusion Normal sinus rhythm Normal ECG Electronically signed by : Yaya Almonte, 09/26/2020 17:09:43
[2020-09-26 06:13] VITALS: BP 161/97; PULSE 68; RESP 16; TEMP 36.6; O2SAT 97; BMI 30.8
[2020-09-26 06:30] VITALS: BP 137/87; PULSE 66; O2SAT 95
--- NOTE | 2020-09-26 06:30 | CT_ITS ---
PROCEDURE INFORMATION: Exam: CTA Chest With Contrast Exam date and time: 09/26/2020 6:30 AM Age: 55 years old Clinical indication: Cough and other: Chest pain; Patient HX: Cough SOA chest pain; Additional info: Cough, SOA, chest pain TECHNIQUE: Imaging protocol: Computed tomographic angiography of the chest with contrast. 3D rendering (Not supervised by radiologist): MIP and/or 3D reconstructed images were created by the technologist. Radiation optimization: All CT scans at this facility use at least one of these dose optimization techniques: automated exposure control; mA and/or kV adjustment per patient size (includes targeted exams where dose is matched to clinical indication); or iterative reconstruction. Contrast material: ISOVUE; Contrast volume: 70 ml; Contrast route: INTRAVENOUS (IV); COMPARISON: CT ANGIO CHEST 05/04/2020 9:27 AM FINDINGS: Pulmonary arteries: No evidence of pulmonary embolus. Aorta: No aortic aneurysm. No aortic dissection. Lungs: Minor bibasal dependent atelectasis. Pleural spaces: Unremarkable. No pneumothorax. No pleural effusion. Heart: Unremarkable. No cardiomegaly. No pericardial effusion. Lymph nodes: Calcified hilar and mediastinal lymph nodes. Bones/joints: Moderate multilevel spondylosis with subtle convex right scoliosis. Soft tissues: Unremarkable. IMPRESSION: 1. No evidence of pulmonary embolus or aortic dissection. 2. Minor bibasal dependent atelectasis. 3. Other nonacute findings above.
--- NOTE | 2020-09-26 06:31 | XR_ITS ---
PROCEDURE INFORMATION: Exam: XR Chest Exam date and time: 09/26/2020 6:31 AM Age: 55 years old Clinical indication: Cough and other: Chest pain; Patient HX: Cough SOA chest pain; Additional info: Cough, chest pain, SOA TECHNIQUE: Imaging protocol: XR of the chest. Views: 1 view. COMPARISON: CT ANGIO CHEST 09/26/2020 7:11 AM FINDINGS: Lungs: Subtle bilateral lower lung opacities. Pleural spaces: Unremarkable. No pleural effusion. No pneumothorax. Heart/Mediastinum: Suboptimal inspiratory effort limiting assessment of heart size and vascularity. Bones/joints: Unremarkable. IMPRESSION: 1. Suboptimal inspiratory effort limiting assessment of heart size and vascularity. 2. Suspicion for subtle bilateral lower lung infiltrates.
[2020-09-26 06:38] LABS: Basophils % 0.4 % (0.1-2.0); Eosinophils # 0.2 K/mm3 (0.0-0.4); Eosinophils % 3.4 % (0.1-12.0); Hemoglobin 14.6 g/dL (14.1-18.0); Lymphocytes # 1.3 K/mm3 (0.7-4.5); Mean Corpuscular HGB Conc 32.5 g/dL (31.8-35.4); Mean Corpuscular Hemoglobin 30.1 pg (27.0-31.2); Mean Corpuscular Volume 92.6 fl (80-94); Mean Platelet Volume 7.7 fl (7.4-10.4); Monocytes # 0.4 K/mm3 (0.1-1.0); Neutrophils % 71.3 % (37.0-80.0); Platelet Count 211 K/mm3 (142-424); Red Blood Count 4.86 M/mm3 (4.60-6.20); Red Cell Distribution Width 14.1 % (11.5-17.5); White Blood Count 6.9 K/mm3 (4.8-10.8)
[2020-09-26 06:45] VITALS: BP 152/93; PULSE 75; RESP 15; O2SAT 99
--- NOTE | 2020-09-26 06:45 | HMH.EDCP ---
ED Disposition Clinical Impression: Atypical chest pain Disposition: Home, Self-Care Condition on Discharge: Good Instructions: DI for Atypical Chest Pain Additional Instructions: resume prev orders Referrals: Woodrow Perez MD [Primary Care Provider] - - Critical Care Critical Care Time: No Attestation: On 09/26/20, the high probability of a clinically significant, sudden or life threatening deterioration of the following system(s) required my full and direct attention, intervention and personal management. The time I documented below is in addition to time spent performing reported procedures but includes the following listed in this critical care notation. Medical Decision Making - Medical Records Medical records reviewed: Yes: I reviewed the patient's medical records. - Mamadou Inquiry Pt receiving controlled substance: No Vital Signs: 09/26/20 06:13 09/26/20 06:30 09/26/20 06:45 Temperature 97.9 F Temperature Source Oral Pulse Rate 66 75 Pulse Rate [Right] 68 Respiratory Rate 16 15 Blood Pressure 137/87 152/93 H Blood Pressure [Right Arm] 161/97 H Blood Pressure Mean [Right Arm] 118 Blood Pressure Source Automatic Cuff Blood Pressure Source [Right Arm] Automatic Cuff Blood Pressure Position [Right Arm] Supine 02 Sat by Pulse Oximetry 97 95 99 Oxygen Delivery Method Room Air Room Air 09/26/20 07:36 Temperature Temperature Source Pulse Rate 74 Pulse Rate [Right] Respiratory Rate Blood Pressure 162/93 H Blood Pressure [Right Arm] Blood Pressure Mean [Right Arm] Blood Pressure Source Blood Pressure Source [Right Arm] Blood Pressure Position [Right Arm] 02 Sat by Pulse Oximetry 94 L Oxygen Delivery Method - Lab Data Lab results reviewed: Yes: I reviewed the patient's lab results. Lab Results 09/26/20 06:18: WBC 6.9, RBC 4.86, Hgb 14.6, Hct 45.0, MCV 92.6, MCH 30.1, MCHC 32.5, RDW 14.1, Plt Count 211, MPV 7.7, Neut % (Auto) 71.3, Lymph % (Auto) 19.0, [place] % (Auto) 6.0, Eos % (Auto) 3.4, Baso % (Auto) 0.4, Neut # (Auto) 5.0, Lymph # (Auto) 1.3, [place] # (Auto) 0.4, Eos # (Auto) 0.2, Baso # (Auto) 0.0 09/26/20 06:18: Sodium 141, Potassium 3.8, Chloride 104, Carbon Dioxide 31 H, Anion Gap 9.8, BUN 13, Creatinine 0.90, Estimated Creat Clear 115, Estimated GFR 88, Est GFR ( Amer) 106, Glucose 95, Calcium 9.2, Total Bilirubin 0.5, Direct Bilirubin 0.4, Conjugated Bilirubin 0.0, Indirect Bilirubin 0.1, Unconjugated Bilirubin 0.1, AST 27, ALT 29, Alkaline Phosphatase 115, Troponin I < 0.01, C-Reactive Protein 11.0 H, Total Protein 7.8, Albumin 4.4, Globulin 3.4 H, Albumin/Globulin Ratio 1.3 09/26/20 06:18: ESR 16 09/26/20 06:18: Procalcitonin 0.052, Phenytoin 9.1 L, Phenobarbital 20.9 Result diagrams: 09/26/20 06:18 09/26/20 06:18 Orders (Tests/Meds): ED MEDICATIONS Discontinued Medications Generic Name Dose Route Start Last Admin Trade Name Freq PRN Reason Stop Dose Admin Sodium Chloride 1,000 mls @ 999 mls/hr 09/26/20 06:30 09/26/20 06:26 Sod Chlor 0.9% 1000ml Bag IV 09/26/20 07:30 999 mls/hr .Q1H1M GRANT Administration Iopamidol 70 ml 09/26/20 07:22 09/26/20 07:23 Iopamidol-370 (76%);100ml Bottle IV 09/26/20 07:23 70 ml ONCE ONE Administration Nitroglycerin 0.4 mg 09/26/20 06:25 09/26/20 06:27 Nitroglycerin 0.4mg Sl Tablet SL 09/26/20 06:26 Not Given ONCE ONE Sodium Chloride 10 ml 09/26/20 07:22 09/26/20 07:23 Sodium Chloride 0.9% 10ml Syr (Rad Only) IV 09/26/20 07:23 10 ml ONCE ONE Administration Sodium Chloride 50 ml 09/26/20 07:22 09/26/20 07:23 0.9 % Sodium Chloride 50 Ml Vial IV 09/26/20 07:23 50 ml ONCE ONE Administration ORDERS Category Date Time Status Troponin I Q3H Lab 09/26/20 09:30 Ordered Troponin I Q3H Lab 09/26/20 12:30 Ordered - ECG Data Tracing #1 Normal Sinus Rhythm: Yes Ischemic changes: non-specific ST-T wave changes Medical Decision Narrativ
[2020-09-26 06:51] LABS: Alanine Aminotransferase 29 U/L (12-78); Albumin Level 4.4 g/dl (3.5-5.0); Albumin/Globulin Ratio 1.3 (1.1-1.8); Alkaline Phosphatase 115 U/L (38-126); Anion Gap 9.8 mEq/L (5-15); Aspartate Amino Transferase 27 U/L (17-59); Bilirubin,Direct 0.4 mg/dl (0.0-0.4); Bilirubin,Indirect 0.1 mg/dL (0.0-0.9); Bilirubin,Total 0.5 mg/dl (0.2-1.3); Bilirubin,Unconjugated 0.1 mg/dL (0.0-1.1); Blood Urea Nitrogen 13 mg/dl (9-20); Calcium 9.2 mg/dl (8.4-10.2); Carbon Dioxide 31 mmol/L (22.0-30.0); Chloride 104 mmol/L (98-107); Creatinine Clearance Estimated 115 mL/min (50-200); Estimated Glomerular Filt Rate 88 ml/min (>60); GFR (African American) 106 ML/MIN (>60); Globulin 3.4 g/dL (1.3-3.2); Glucose 95 mg/dl (74-100); Potassium 3.8 mmoL/L (3.5-5.1); Sodium 141 mmol/L (136-145); Total Protein,Serum 7.8 g/dl (6.3-8.2)
[2020-09-26 06:55] LABS: Phenytoin (Dilantin) 9.1 ug/ml (10-20)
[2020-09-26 07:10] LABS: Troponin I < 0.01 ng/ml (0.00-0.034)
[2020-09-26 07:11] LABS: Procalcitonin 0.052 ng/mL (0.0-2.0)
[2020-09-26 07:24] LABS: Erythrocyte Sedimentation Rate 16 mm/hr (0-20)
[2020-09-26 07:36] VITALS: BP 162/93; PULSE 74; O2SAT 94
--- NOTE | 2020-09-26 07:43 | PC.NURSE ---
UA sent to lab.
[2020-09-26 08:00] VITALS: BP 162/97; O2SAT 93
--- NOTE | 2020-09-26 08:04 | PC.NURSE ---
Contacted [facility] to inform pt is DC
[2020-09-26 08:15] VITALS: BP 162/93; PULSE 74; RESP 16; TEMP 36.6; O2SAT 94
== END 2020-09-26 08:17 | disposition home or self-care (01) ==
PROVIDERS: Emergency Provider Emergency Medicine; PCP Emergency Medicine
DX: R07.89 Other chest pain (principal); I10 Essential (primary) hypertension; E78.5 Hyperlipidemia, unspecified; F20.9 Schizophrenia, unspecified; H54.7 Unspecified visual loss; F17.210 Nicotine dependence, cigarettes, uncomplicated
CPT/HCPCS: 71045; 71275; 80053; 80076; 80184; 80185; 84145; 84484; 85025; 85651; 86140; 93005; 96365; 96375; 99282; Q9967

== ENCOUNTER → 2020-12-07 15:01 | Outpatient (CLI) | payer MEDICAID, SELFPAY | PROVIDERS: Visit Provider Internal Medicine Pulmonary Disease | DX: R06.00 Dyspnea, unspecified (principal); R91.8 Other nonspecific abnormal finding of lung field | CPT/HCPCS: 87070; 87205 ==

== ENCOUNTER → 2020-12-25 08:17 | Outpatient (CLI) | payer MEDICAID, SELFPAY ==
--- NOTE | 2020-12-25 08:22 | CT_ITS ---
PROCEDURE: CT CHEST WO CON CLINICAL INDICATION: sob Shortness of air, follow-up pulmonary nodule COMPARISON: CT CHESTWO CT chest wo con from 11/21/[address] CHEST W CON from 07/27/[address] ANGIO CHEST from 09/26/2020 TECHNIQUE: Axial images obtained with sagittal and coronal reformats. All CT scans at the facility use one or more dose reduction, viz: automated exposure control, ma/kV adjustment per patient size (including targeted exams where dose is matched to indication, i.e. head), or iterative reconstruction technique. FINDINGS: HEART AND MEDIASTINAL STRUCTURES: There is a mildly prominent node in the anterior mediastinum at 12 mm and may be slightly larger compared to the previous exam. Coronary artery calcifications and calcified mediastinal and hilar nodes are present. Hilar evaluation somewhat limited without IV contrast. LUNGS AND PLEURAL SPACES: There is generalized respiratory motion artifact. There are mild atelectatic changes in the lung bases. There is an oval soft tissue mass in the right lower lobe contiguous with the inferior aspect of the hilum on the right. This measures 4.6 by 2.6 cm previously at 4.5 x 1.9 cm. This is anterior to the right lower lobe bronchus. BONY STRUCTURES: Degenerative changes thoracic spine with bridging osteophytes in the midthoracic spine. UPPER ABDOMEN: 8 mm hypodensity left hepatic lobe unchanged. Prior cholecystectomy ADDITIONAL FINDINGS: No other significant abnormalities. IMPRESSION: Right infrahilar mass once again noted and appears slightly more bulky. This in part could be related to unopacified overlying pulmonary veins. Adenopathy or lung cancer is considered.. Dictated by: Rainer Garza MD 12/25/2020 11:13 Rainer Garza MD in [facility] 12/25/2020 11:13
== END ==
PROVIDERS: PCP Emergency Medicine; Visit Provider Internal Medicine Pulmonary Disease
DX: R06.00 Dyspnea, unspecified (principal); R91.8 Other nonspecific abnormal finding of lung field
CPT/HCPCS: 71250

== ENCOUNTER → 2021-04-09 09:58 | Outpatient (CLI) | payer MEDICAID, SELFPAY | PROVIDERS: PCP Emergency Medicine; Visit Provider Nurse Practitioner | DX: Z20.822 Contact with and (suspected) exposure to COVID-19 (principal) | CPT/HCPCS: C9803; U0003; U0005 ==

== ENCOUNTER 2021-04-10 09:29 | Day surgery (SDC) | payer MEDICAID, SELFPAY ==
[2021-04-10] VITALS (10 sets, daily range): BP systolic 121–153; BP diastolic 72–94; PULSE 62–82; RESP 16–20; TEMP 36.4–43; O2SAT 92–98; BMI 32.9
--- NOTE | 2021-04-10 12:18 | P.PN_ITS ---
[facility] Anesthesia Checklist - Patient Identification Patient Identification: Arm Band - Structural Data Admitted From: Long-term Nursing Facility Planned Operative Procedure/s: Exam under anesthesia, Colonoscopy Consent for Planned Operative Procedure(s) Verified: Yes Verified Documents: Surgical Consent, History and Physical - NPO Status Verified Time NPO: 00:00 - Additional verifications Anesthesia Reactions: No Hx Blood Transfusions: No Blood Transfusion Reaction: No - Airway Assessment C-Spine Mobility Assessed: Yes (mp2) TMJ Mobility Assessed: Yes Dentition: Edentulous - Neurological Assessment Level of Consciousness: Awake, Alert - Anesthesia Plan Anesthesia Risk discussed: Yes Anesthesia Plan: Verified ASA Class: III Anesthesia Type: General [facility] History I have reviewed the patient's past medical history: Yes Medical History: Reports:: Asthma, Hypertension, Seizures (UNKNOWN) Denies:: Cancer, Diabetes Mellitus Type 1, Diabetes Mellitus Type 2, Internal Pacemaker, MRSA *Have you ever received a pneumonia vaccine?: No *Have you received a flu vaccine this season?: Yes Other Medical History: Denies: Blood Transfusion Reaction Anesthesia experience/problems:: nac Other Surgeries: Yes: Other. No: Pacemaker Amputation: No Fractures: Yes - *Social History Last grade of school completed: 11th or 12th Smoking Status: Never smoker Tobacco Type: cigarettes # Packs/Day (cigarettes): 1 Alcohol Intake: never Alcohol Intake Frequency:: 0-2 drinks per day Substance Use Type: marijuana *Occupational Status:: disabled Housing: assisted living facility Household Members: other *Travel in the last 8 weeks: None Family Hx:: Unable to obtain
--- NOTE | 2021-04-10 12:58 | HMH.OPNOTE ---
Date of procedure: 04/10/21 Pre-op Diagnosis:: Abnormal PET scan finding of the anal canal Diarrhea Post-op Diagnosis:: Same Procedure performed:: Anorectal exam under anesthesia Colonoscopy with biopsies and polypectomy Surgeon:: Patrick Zapien MD FORMULA CHECKER:: Lionel Houser Anesthesia: LMA Estimated blood loss (mL): 2 Clinical Note:: Patient is a 56-year-old white male who is apparently legally blind who is a resident at [facility]. He has been evaluated by Dr. Blount for possible lung mass. He did apparently have a PET CT scan which revealed increased uptake at the anal canal. He was referred for surgical consultation. It appears that the patient did have a colonoscopy in August [address] Nickolas Doyle which was normal. This was for some increased bowel frequency. He had a colonoscopy in August [address] Newman for increased bowel frequency which was normal. Patient does describe some nondescript abdominal pain. Apparently he has also had a significant amount of watery diarrhea. Given the findings on PET scan and clinical scenario plan was made for rectal exam under anesthesia and possible colonoscopy. Operative findings:: Circumferential nonbleeding internal and external hemorrhoids Transverse colon polyp Fair colonic preparation of the right colon Operative note:: Patient was taken to the operating room. He was positioned in supine position. General anesthesia was induced via LMA. He was positioned in modified lithotomy position. Digital examination was performed which revealed some external and minor internal prolapsing hemorrhoids which appeared noninflamed and nonbleeding. Fabens anoscope was inserted. There was some circumferential internal hemorrhoids. No mass noted. Variable stiffness Olympus colonoscope was inserted via the anus. It was advanced to the cecum. Right colon preparation was somewhat fair but adequate visualization was achieved with irrigation and suctioning. Ileocecal valve and appendiceal orifice were clearly identified. As the colonoscope was withdrawn several cold biopsies were obtained of the right colon and sent as specimen random right colon biopsies to evaluate for microscopic colitis. In the transverse colon there was a polyp noted about 6 mm in size removed with cold snare. Residual polyp base was removed with cold biopsy forceps. This was sent as transverse colon polyp. As the colonoscope was withdrawn to the left colon irrigation and suctioning was performed. Several biopsies were obtained and sent as random left colon biopsies to evaluate for microscopic colitis. Within the rectum retroflexion was performed which revealed internal nonbleeding hemorrhoids as previously noted. Colonoscope was withdrawn. Recommendations: No obvious etiology for his diarrhea. May be medical/functional/dietary. Follow-up on biopsy results to assess for microscopic colitis. Given the polyp likely repeat colonoscopy 3 years in light of concomitant fair colonic preparation. Findings on PET scan may be secondary to circumferential internal and external hemorrhoids. Condition: stable Disposition: PACU Specimens:: Internal/external hemorrhoids Transverse colon polyp Fair colonic preparation Complications:: None immediately apparent
--- NOTE | 2021-04-10 13:05 | HMH.ANESI ---
[facility] Anesthesia Record Part I Intake, IV Amount: 600 Estimated blood loss (mL): 0 Urine output (mL): 0 Blood Pressure: 121/72 SaO2: 92 Pulse Rate: 62 Respiratory Rate: 16 Temperature: 99.3 F Patient is:: Drowsy, Stable Stable to PACU at:: 13:00
--- NOTE | 2021-04-10 13:34 | PC.NURSE ---
1328-detailed report called to YOSELIN Barros 1590-pt transported to post op via stretcher w/gabriel rails up and left in care of YOSELIN Barros with bed locked in lowest position, vss, pt stable
--- NOTE | 2021-04-11 11:28 | P.PN_ITS ---
[facility] Anesthesia Record Part II Discharge Time: 13:30 Destination: Surgical Day Care (OP Surgery) PACU nurse assessment reviewed?: Yes Patient Condition:: Good Anesthesia Complications:: None Swallowing reflex intact?: Yes Cyanosis?: No Blood Pressure: 130/82 Pulse Rate: 74 Temperature: 98.7 F Mental Status: Alert & Oriented Pain level:: 0 Nausea and/or vomitting:: None Intake, IV Amount: 0
[2021-04-11 11:29] VITALS: BP 130/82; PULSE 74; TEMP 37.1
== END 2021-04-10 14:01 ==
PROVIDERS: PCP Emergency Medicine; Visit Provider Surgery
PROC: (CPT 45380; principal; 2021-04-10 11:15)
DX: K64.0 First degree hemorrhoids (principal); K63.5 Polyp of colon; J45.909 Unspecified asthma, uncomplicated; I10 Essential (primary) hypertension; Z79.899 Other long term (current) drug therapy
CPT/HCPCS: 45380; 45385; 96374; J2405

== ENCOUNTER 2021-10-27 11:35 | Emergency (ER) | payer MEDICAID, SELFPAY ==
[2021-10-27] VITALS (9 sets, daily range): BP systolic 132–186; BP diastolic 74–100; PULSE 59–66; RESP 15–19; TEMP 36.7–36.9; O2SAT 95–97; BMI 25.8
--- NOTE | 2021-10-27 12:01 | HMH.EDGENADL ---
ED Disposition Clinical Impression: Fall (on) (from) other stairs and steps, initial encounter, Laceration Thoracic compression fracture Qualifiers: Encounter type: initial encounter Thoracic vertebra fracture level: T6 Qualified Code(s): S22.050A - Wedge compression fracture of T5-T6 vertebra, initial encounter for closed fracture Disposition: Home, Self-Care Condition on Discharge: Good Instructions: DI for Laceration Repair Additional Instructions: Please note that patient has a concern for age-indeterminate compression fracture without causing instability to the spinal cord. If patient has any difficulty ambulating, worsening pain, please refer to primary care physician for further imaging or return to the emergency department for reassessment. I believe that given patient's complaints have been similar to past complaints, this finding is chronic. Referrals: Woodrow Perez MD [Primary Care Provider] - - Critical Care Critical Care Time: No Attestation: On , the high probability of a clinically significant, sudden or life threatening deterioration of the following system(s) required my full and direct attention, intervention and personal management. The time I documented below is in addition to time spent performing reported procedures but includes the following listed in this critical care notation. Medical Decision Making - Medical Records Medical records reviewed: Yes: I reviewed the patient's medical records. - Mamadou Inquiry Pt receiving controlled substance: No Vital Signs: 10/27/21 11:36 10/27/21 12:34 10/27/21 13:47 Temperature 98.0 F Temperature Source Oral Pulse Rate 61 62 Pulse Rate [Left Radial] 66 Respiratory Rate 18 15 18 Blood Pressure 163/99 H 143/87 H Blood Pressure [Right Arm] 186/89 H Blood Pressure Mean 109 93 Blood Pressure Mean [Right Arm] 121 Blood Pressure Source [Right Arm] Automatic Cuff Blood Pressure Position [Right Arm] Sitting 02 Sat by Pulse Oximetry 96 95 97 Oxygen Delivery Method Room Air Room Air 10/27/21 14:04 10/27/21 14:34 10/27/21 15:04 Temperature Temperature Source Pulse Rate 60 59 L 60 Pulse Rate [Left Radial] Respiratory Rate 17 16 17 Blood Pressure 154/94 H 142/90 H 136/76 Blood Pressure [Right Arm] Blood Pressure Mean 105 101 97 Blood Pressure Mean [Right Arm] Blood Pressure Source [Right Arm] Blood Pressure Position [Right Arm] 02 Sat by Pulse Oximetry 96 96 97 Oxygen Delivery Method 10/27/21 15:34 Temperature Temperature Source Pulse Rate 61 Pulse Rate [Left Radial] Respiratory Rate 18 Blood Pressure 135/78 Blood Pressure [Right Arm] Blood Pressure Mean 97 Blood Pressure Mean [Right Arm] Blood Pressure Source [Right Arm] Blood Pressure Position [Right Arm] 02 Sat by Pulse Oximetry 97 Oxygen Delivery Method - Lab Data Lab results reviewed: Yes: I reviewed the patient's lab results. Lab Results 10/27/21 12:47: WBC 3.7 L, RBC 4.92, Hgb 15.6, Hct 47.6, MCV 96.8 H, MCH 31.6 H, MCHC 32.7, RDW 15.1, Plt Count 186, MPV 8.5, Neut % (Auto) 61.4, Lymph % (Auto) 22.3, Coke % (Auto) 8.7, Eos % (Auto) 3.9, Baso % (Auto) 3.7 H, Neut # (Auto) 2.3, Lymph # (Auto) 0.8, Coke # (Auto) 0.3, Eos # (Auto) 0.1, Baso # (Auto) 0.1 10/27/21 12:47: Sodium 140, Potassium 4.2, Chloride 103, Carbon Dioxide 30, Anion Gap 11.2, BUN 20, Creatinine 0.80, Estimated Creat Clear 107, Estimated GFR 100, Est GFR ( Amer) 121, Glucose 92, Calcium 9.2, Total Bilirubin 0.5, AST 40, ALT 53, Alkaline Phosphatase 130 H, Total Protein 8.4 H, Albumin 4.8, Globulin 3.6 H, Albumin/Globulin Ratio 1.3 Result diagrams: 10/27/21 12:47 10/27/21 12:47 Orders (Tests/Meds): ED MEDICATIONS Discontinued Medications Generic Name Dose Route Start Last Admin Trade Name Freq PRN Reason Stop Dose Admin Acetaminophen 1,000 mg 10/27/21 12:03 10/27/21 12:12 Acetaminophen 500mg Tab PO 10/27/21 12:04 1,000 mg ONCE ONE
--- NOTE | 2021-10-27 12:02 | CT_ITS ---
PROCEDURE INFORMATION: Exam: CT Head Without Contrast Exam date and time: 10/27/2021 1:03 PM Age: 56 years old Clinical indication: Injury or trauma; Fall; Blunt trauma (contusions or hematomas); Without loss of consciousness; Additional info: Fall, head injury TECHNIQUE: Imaging protocol: Computed tomography of the head without contrast. Radiation optimization: All CT scans at this facility use at least one of these dose optimization techniques: automated exposure control; mA and/or kV adjustment per patient size (includes targeted exams where dose is matched to clinical indication); or iterative reconstruction. COMPARISON: [facility] CT soft tissue neck wo con 11/21/2017 2:13 PM FINDINGS: Brain: No intracranial hemorrhage. No evidence of acute territorial infarct or cerebral edema. Mild prominence of the cortical sulci consistent with age-appropriate intracerebral volume loss. Periventricular white matter tract changes consistent with microvascular disease. No mass effect or midline shift. Cerebral ventricles: No ventriculomegaly. Paranasal sinuses: Bilateral sphenoid and ethmoid sinus inflammatory changes. Mastoid air cells: Visualized mastoid air cells are well aerated. Bones/joints: Unremarkable. No acute fracture. Soft tissues: Unremarkable. IMPRESSION: 1. No evidence of acute intracranial abnormality. 2. Mild intracerebral volume loss.
--- NOTE | 2021-10-27 12:02 | CT_ITS ---
PROCEDURE INFORMATION: Exam: CT Cervical Spine Without Contrast Exam date and time: 10/27/2021 1:06 PM Age: 56 years old Clinical indication: Injury or trauma; Fall; Blunt trauma TECHNIQUE: Imaging protocol: Computed tomography of the cervical spine without contrast. Radiation optimization: All CT scans at this facility use at least one of these dose optimization techniques: automated exposure control; mA and/or kV adjustment per patient size (includes targeted exams where dose is matched to clinical indication); or iterative reconstruction. COMPARISON: [facility] CT cervical spine wo con 06/30/2017 1:17 PM FINDINGS: Bones/joints: Cervical spondylosis with multilevel disc degeneration most pronounced C5-6 and C6-7. Moderately severe bilateral neural foraminal stenosis at C6-7 secondary to posterolateral osteophytic ridge. Discs/Spinal canal/Neural foramina: See Bones/joints finding. Lungs: Lung apices are normal. Soft tissues: Unremarkable. IMPRESSION: 1. No evidence of acute osseous injury. 2. Cervical spondylosis with multilevel disc degeneration most pronounced at C5-6 and C6-7.
--- NOTE | 2021-10-27 12:02 | CT_ITS ---
PROCEDURE INFORMATION: Exam: CT Thoracic Spine Without Contrast Exam date and time: 10/27/2021 1:09 PM Age: 56 years old Clinical indication: Injury or trauma; Fall; Blunt trauma (contusions or hematomas); Additional info: Back pain S/P fall TECHNIQUE: Imaging protocol: Computed tomography of the thoracic spine without contrast. Radiation optimization: All CT scans at this facility use at least one of these dose optimization techniques: automated exposure control; mA and/or kV adjustment per patient size (includes targeted exams where dose is matched to clinical indication); or iterative reconstruction. COMPARISON: [facility] CT thoracic spine wo con 06/30/2017 1:20 PM FINDINGS: Bones/joints: Thoracic spondylosis with diffuse changes of disc degeneration. Partially bridging anterior ligamentous ossification. Findings compatible with diffuse idiopathic skeletal hyperostosis. Mild decrease in the height of the T6 vertebral body anteriorly. Findings compatible with mild compression fracture deformity, age indeterminate. Discs/Spinal canal/Neural foramina: See Bones/joints finding. Soft tissues: Unremarkable. Lymph nodes: Incomplete visualization of calcified mediastinal lymph nodes and perihilar lymph nodes. IMPRESSION: 1. Slight decrease in the height of the T6 vertebral body anteriorly. Findings compatible with mild compression fracture deformity, age indeterminate. 2. Thoracic spondylosis with superimposed changes of diffuse idiopathic skeletal hyperostosis. 3. Evidence of prior granulomatous disease.
--- NOTE | 2021-10-27 12:03 | CT_ITS ---
PROCEDURE INFORMATION: Exam: CT Lumbar Spine Without Contrast Exam date and time: 10/27/2021 1:13 PM Age: 56 years old Clinical indication: Injury or trauma; Fall; Blunt trauma (contusions or hematomas); Injury date: 10/27/21; Additional info: Back pain S/P fall TECHNIQUE: Imaging protocol: Computed tomography of the lumbar spine without contrast. Radiation optimization: All CT scans at this facility use at least one of these dose optimization techniques: automated exposure control; mA and/or kV adjustment per patient size (includes targeted exams where dose is matched to clinical indication); or iterative reconstruction. COMPARISON: CT THORACIC SPINE WO CON 10/27/2021 1:09 PM FINDINGS: Bones/joints: Lumbar spondylosis with multilevel disc degeneration most pronounced at L1-2 and L5-S1. Multilevel hypertrophic facet changes Discs/Spinal canal/Neural foramina: 3.5-4 mm broad based and left lateral disc protrusion at L3-4. Moderate left, mild right neural foraminal stenosis. AP dimensions of the spinal canal 6 mm. 3.5-4 mm broad-based and lateral combined osteophytic ridge and disc protrusion at L2-3. AP dimensions of the spinal canal: 5 mm. Soft tissues: Unremarkable. IMPRESSION: 1. No evidence of acute osseous injury. 2. Lumbar spondylosis with multilevel disc degeneration. 3. At L2-3 and L3-4: 3.5-4 mm broad based on lateral combined disc protrusion osteophytic ridge formations. Accompanying spinal stenosis at both levels in part secondary to developmental tapering of the spinal canal.
--- NOTE | 2021-10-27 12:10 | PC.NURSE ---
talking to yen grimes about pts baseline
--- NOTE | 2021-10-27 12:52 | PC.NURSE ---
Rounded on patient. Patient stated he wanted food. I explained to patient we had to wait until the CT results back before he could eat. He stated that he understood.
[2021-10-27 12:59] LABS: Basophils # 0.1 K/mm3 (0-0.2); Basophils % 3.7 % (0.1-2.0); Eosinophils # 0.1 K/mm3 (0.0-0.4); Eosinophils % 3.9 % (0.1-12.0); Hematocrit 47.6 % (42.0-52.0); Hemoglobin 15.6 g/dL (14.1-18.0); Lymphocytes # 0.8 K/mm3 (0.7-4.5); Lymphocytes % 22.3 % (10-50); Mean Corpuscular HGB Conc 32.7 g/dL (31.8-35.4); Mean Corpuscular Hemoglobin 31.6 pg (27.0-31.2); Mean Corpuscular Volume 96.8 fl (80-94); Mean Platelet Volume 8.5 fl (7.4-10.4); Monocytes # 0.3 K/mm3 (0.1-1.0); Monocytes % 8.7 % (1.7-9.3); Neutrophils # 2.3 K/mm3 (1.8-7.8); Neutrophils % 61.4 % (37.0-80.0); Platelet Count 186 K/mm3 (142-424); Red Blood Count 4.92 M/mm3 (4.60-6.20); Red Cell Distribution Width 15.1 % (11.5-17.5); White Blood Count 3.7 K/mm3 (4.8-10.8)
--- NOTE | 2021-10-27 13:03 | PC.NURSE ---
PT TO CT AT THIS TIME
[2021-10-27 13:21] LABS: Chloride 103 mmol/L (98-107); Potassium 4.2 mmoL/L (3.5-5.1); Sodium 140 mmol/L (136-145)
[2021-10-27 13:24] LABS: Alanine Aminotransferase 53 U/L (12-78); Albumin Level 4.8 g/dl (3.5-5.0); Albumin/Globulin Ratio 1.3 (1.1-1.8); Alkaline Phosphatase 130 U/L (38-126); Anion Gap 11.2 mEq/L (5-15); Aspartate Amino Transferase 40 U/L (17-59); Bilirubin,Total 0.5 mg/dl (0.2-1.3); Blood Urea Nitrogen 20 mg/dl (9-20); Calcium 9.2 mg/dl (8.4-10.2); Carbon Dioxide 30 mmol/L (22.0-30.0); Creatinine Clearance Estimated 107 mL/min (50-200); Estimated Glomerular Filt Rate 100 ml/min (>60); GFR (African American) 121 ML/MIN (>60); Globulin 3.6 g/dL (1.3-3.2); Glucose 92 mg/dl (74-100); Total Protein,Serum 8.4 g/dl (6.3-8.2)
--- NOTE | 2021-10-27 15:53 | PC.NURSE ---
Pt asking when it will be his turn to be seen by MD for stitches. aware
--- NOTE | 2021-10-27 16:20 | PC.NURSE ---
[facility]
--- NOTE | 2021-10-27 16:25 | PC.NURSE ---
Called [employer] to bring patient a tray
--- NOTE | 2021-10-27 16:47 | PC.NURSE ---
Pt sitting up in chair with meal tray in front of him. Cleaned pt face and around laceration and stitches. offered to change pt wet shirt, pt denies at this time.
--- NOTE | 2021-10-27 17:09 | PC.NURSE ---
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 Notified of discharge
--- NOTE | 2021-10-27 17:42 | PC.NURSE ---
wrapped dressing to secure bandage over laceration. pt tolerated well
--- NOTE | 2021-10-27 17:45 | PC.NURSE ---
CALLED PERSON OF CONTACT AGAIN NO ANSWER
== END 2021-10-27 18:15 | disposition home or self-care (01) ==
PROVIDERS: Emergency Provider Emergency Medicine; PCP Emergency Medicine
DX: S22.050A Wedge compression fracture of T5-T6 vertebra, initial encounter for closed fracture (principal); S01.81XA Laceration without foreign body of other part of head, initial encounter; I10 Essential (primary) hypertension; G40.909 Epilepsy, unspecified, not intractable, without status epilepticus; J45.909 Unspecified asthma, uncomplicated; Z79.51 Long term (current) use of inhaled steroids; Z79.899 Other long term (current) drug therapy; W10.9XXA Fall (on) (from) unspecified stairs and steps, initial encounter
CPT/HCPCS: 12013; 70450; 72125; 72128; 72131; 80053; 85025; 99285

== ENCOUNTER 2022-04-09 22:21 | Emergency (ER) | payer MEDICAID, SELFPAY ==
[2022-04-09 22:27] VITALS: BP 126/75; PULSE 89; RESP 20; TEMP 37.7; O2SAT 98; BMI 34.0
--- NOTE | 2022-04-09 22:33 | XR_ITS ---
PROCEDURE INFORMATION: Exam: XR Chest Exam date and time: 04/09/2022 10:58 PM Age: 57 years old Clinical indication: Cough TECHNIQUE: Imaging protocol: Radiologic exam of the chest. Views: 1 view. COMPARISON: CT CHEST WO CON 12/25/2020 8:24 AM FINDINGS: Lungs: Low lung volumes. Pulmonary vasculature grossly normal. Peribronchial thickening suggesting an element of bronchitis. Mild bilateral perihilar and infrahilar alveolar opacities, atelectasis versus perihilar infiltrates. Pleural spaces: No pleural effusion. No pneumothorax. Heart/Mediastinum: Heart size normal. No tracheal/mediastinal shift. Bones/joints: No acute osseous abnormalities are identified. Moderate thoracic spondylosis. IMPRESSION: 1. Low lung volumes. 2. Peribronchial thickening suggesting bronchitis. 3. Mild bilateral perihilar and medial basilar alveolar opacities which could represent atelectasis or patchy perihilar pneumonia.
[2022-04-09 22:41] LABS: Coronavirus 19, PCR Not Detected (NotDetected); Influenza B, PCR Not Detected (NotDetected)
--- NOTE | 2022-04-09 22:48 | HMH.EDURI ---
Discharge Plan Disposition Patient Disposition: Home, Self-Care Prescriptions Prescriptions: New oseltamivir [Tamiflu] 75 mg capsule 75 mg PO BID 5 Days Qty: 10 0RF ondansetron HCl 4 mg Tablet 4 mg PO Q8H PRN (Reason: Nausea) Qty: 20 0RF No Action clonazepam 0.5 mg tablet 0.5 mg PO TID Qty: 90 5RF phenobarbital 32.4 mg tablet 32.4 mg PO BID Qty: 60 5RF benztropine 0.5 MG tablet 1 mg PO DAILY diltiazem HCl 180 MG capsule,extended release 24hr 180 mg PO DAILY phenytoin sodium extended 100 MG capsule 100 mg PO TID citalopram 20 MG tablet 20 mg PO DAILY mirtazapine 15 MG tablet 15 mg PO HS risperidone 1 MG tablet 3 mg PO BID aripiprazole 20 tablet 30 mg PO DAILY Label Comments: donepezil 5 MG tablet 5 mg PO HS metoclopramide HCl 10 MG tablet 10 mg PO TID pantoprazole 20 MG tablet,delayed release (DR/EC) 20 mg PO DAILY loratadine 10 MG capsule 5 mg PO DAILY albuterol sulfate 1.25 MG/3 ML solution for nebulization 1.25 mg INHALATION QID Rx Instructions: To be used before 3% normal saline nebulization. Referrals Follow up/Referrals: Provider,Referral, MD [Primary Care Provider] - See instructions Clinical Impressions Clinical Impression: Influenza Instructions Patient Instructions: DI for Influenza -- Adult Discharge ED Provider: Woodrow Perez URI/Sore Throat HPI General Chief Complaint: Upper Respiratory Infection Stated Complaint: N/V/D Time Seen by Provider: 04/09/22 22:48 Mode of Arrival: EMS Source of Information: Patient, EMS and Medical Record Limitations: No Limitations Description of Symptoms (Recalled from ER Triage Doc. by RN): Per ems, patient has c/o fever, nausea vomiting and diarrhea for the prior three days with body aches. History of Present Illness HPI Narrative: pt from senior care with reported fever and vomiting with cough Complaint: fever and cough Onset (ago): day(s) Duration: intermittent Severity: moderate Able to tolerate fluids by mouth: Yes Related Data Home Medications Medication Instructions Recorded Confirmed aripiprazole 20 mg tablet 30 mg PO DAILY Depression 06/30/17 04/27/21 benztropine 0.5 mg tablet 1 mg PO DAILY unknown 06/30/17 04/27/21 citalopram 20 mg tablet 20 mg PO DAILY Depression 06/30/17 04/27/21 diltiazem HCl 180 mg 180 mg PO DAILY Heart disease 06/30/17 04/27/21 capsule,extended release 24 hr donepezil 5 mg tablet 5 mg PO HS memory 06/30/17 04/27/21 metoclopramide HCl 10 mg tablet 10 mg PO TID stomach 06/30/17 04/27/21 mirtazapine 15 mg tablet 15 mg PO HS memory 06/30/17 04/27/21 phenytoin sodium extended 100 mg 100 mg PO TID seizures 06/30/17 04/27/21 capsule risperidone 1 mg tablet 3 mg PO BID mood 06/30/17 04/27/21 pantoprazole 20 mg tablet,delayed 20 mg PO DAILY GERD 05/04/20 04/27/21 release albuterol sulfate 1.25 mg/3 mL 1.25 mg inhalation QID Breathing 04/10/21 04/27/21 solution for nebulization problems loratadine 10 mg capsule 5 mg PO DAILY allergies 04/10/21 04/27/21 Previous Rx's Medication Instructions Recorded clonazepam 0.5 mg tablet 0.5 mg PO TID Anxiety #90 tabs 02/13/22 phenobarbital 32.4 mg tablet 32.4 mg PO BID seizures #60 tabs 02/13/22 ondansetron HCl 4 mg tablet 4 mg PO Q8H PRN Nausea #20 tabs 04/10/22 oseltamivir 75 mg capsule (Tamiflu) 75 mg PO BID 5 days #10 caps 04/10/22 Allergies Allergy/AdvReac Type Severity Reaction Status Date / Time No Known Allergies Allergy Verified 04/27/21 10:42 [facility] Social History Smoking Status: Former smoker second hand exposure: No alcohol intake: never substance use type: marijuana current occupational status: disabled Travel in the last 8 weeks: None household members: other housing: assisted living facility current occupational exposures/hazards: No caffeine: Yes ROS Obtained: Yes All systems reviewed & no
[2022-04-09 22:57] LABS: Basophils % 0.8 % (0.1-2.0); Eosinophils # 0.1 K/mm3 (0.0-0.4); Eosinophils % 1.4 % (0.1-12.0); Hematocrit 43.4 % (42.0-52.0); Hemoglobin 13.7 g/dL (14.1-18.0); Lymphocytes # 0.4 K/mm3 (0.7-4.5); Lymphocytes % 12.5 % (10-50); Mean Corpuscular HGB Conc 31.5 g/dL (31.8-35.4); Mean Corpuscular Hemoglobin 30.4 pg (27.0-31.2); Mean Corpuscular Volume 96.6 fl (80-94); Monocytes # 0.4 K/mm3 (0.1-1.0); Monocytes % 11.5 % (1.7-9.3); Neutrophils # 2.6 K/mm3 (1.8-7.8); Neutrophils % 73.9 % (37.0-80.0); Platelet Count 137 K/mm3 (142-424); Red Blood Count 4.49 M/mm3 (4.60-6.20); Red Cell Distribution Width 14.6 % (11.5-17.5); White Blood Count 3.6 K/mm3 (4.8-10.8)
[2022-04-09 23:03] LABS: Chloride 101 mmol/L (98-107); Potassium 3.6 mmoL/L (3.5-5.1); Sodium 142 mmol/L (136-145)
[2022-04-09 23:05] LABS: Blood Urea Nitrogen 35 mg/dl (9-20); Creatinine Clearance Estimated 81 mL/min (50-200); Estimated Glomerular Filt Rate 48 ml/min (>60); GFR (African American) 59 ML/MIN (>60)
[2022-04-09 23:06] LABS: Alanine Aminotransferase 67 U/L (12-78); Albumin Level 4.3 g/dl (3.5-5.0); Albumin/Globulin Ratio 1.5 (1.1-1.8); Alkaline Phosphatase 114 U/L (38-126); Anion Gap 16.6 mEq/L (5-15); Aspartate Amino Transferase 81 U/L (17-59); Bilirubin,Total 0.2 mg/dl (0.2-1.3); Carbon Dioxide 28 mmol/L (22.0-30.0); Globulin 2.9 g/dL (1.3-3.2); Total Protein,Serum 7.2 g/dl (6.3-8.2)
[2022-04-09 23:07] LABS: Calcium 8.7 mg/dl (8.4-10.2); Glucose 95 mg/dl (74-100)
[2022-04-09 23:30] VITALS: BP 125/72; PULSE 85; O2SAT 92
[2022-04-09 23:52] LABS: Influenza A, PCR Detected (NotDetected)
[2022-04-10] VITALS: BP 135/75; PULSE 88; O2SAT 91
--- NOTE | 2022-04-10 00:23 | PC.NURSE ---
Pt resting in bed. Warm blanket provided.
[2022-04-10 00:32] VITALS: PULSE 88
[2022-04-10 00:33] VITALS: PULSE 89
--- NOTE | 2022-04-10 01:40 | PC.NURSE ---
Drink provided per Cathy Sam RN.
[2022-04-10 02:30] LABS: Phenytoin (Dilantin) 13.9 ug/ml (10-20)
--- NOTE | 2022-04-10 03:24 | PC.NURSE ---
Pt resting at this time. No needs voiced.
--- NOTE | 2022-04-10 05:25 | PC.NURSE ---
Pt readjusted in bed. No other needs voiced.
--- NOTE | 2022-04-10 05:42 | PC.NURSE ---
Attempted to call [facility] to have them come picker tender helper pt. No answer.
[2022-04-10 06:28] VITALS: BP 130/74; PULSE 82; RESP 24; TEMP 37.2; O2SAT 93
== END 2022-04-10 06:41 | disposition home or self-care (01) ==
PROVIDERS: Emergency Provider Emergency Medicine
DX: J10.1 Influenza due to other identified influenza virus with other respiratory manifestations (principal); G40.909 Epilepsy, unspecified, not intractable, without status epilepticus; R11.0 Nausea; R50.9 Fever, unspecified; R11.2 Nausea with vomiting, unspecified; R19.7 Diarrhea, unspecified; M19.90 Unspecified osteoarthritis, unspecified site; R01.1 Cardiac murmur, unspecified; H54.8 Legal blindness, as defined in USA; Z79.1 Long term (current) use of non-steroidal anti-inflammatories (NSAID); Z79.51 Long term (current) use of inhaled steroids; Z79.899 Other long term (current) drug therapy; Z87.891 Personal history of nicotine dependence
CPT/HCPCS: 71045; 80053; 80184; 80185; 85025; 96361; 96374; 99284; C9803; J2405; U0003; U0005

== ENCOUNTER 2022-04-21 09:06 | Inpatient (IN) | payer MEDICAID, SELFPAY ==
[2022-04-21] VITALS (16 sets, daily range): BP systolic 92–138; BP diastolic 63–85; PULSE 64–100; RESP 2–20; TEMP 36.4–36.8; O2SAT 90–97; BMI 37.1; BMI 30.9
--- NOTE | 2022-04-21 09:14 | XR_ITS ---
PROCEDURE INFORMATION: Exam: XR Chest Exam date and time: 04/21/2022 10:05 AM Age: 57 years old Clinical indication: Shortness of breath; Additional info: SOA TECHNIQUE: Imaging protocol: Radiologic exam of the chest. Views: 1 view. COMPARISON: CR XR CHEST PORTABLE 04/09/2022 10:58 PM FINDINGS: Lungs: Stable peribronchial thickening. Worsening perihilar and infrahilar opacities bilaterally, worrisome for pneumonia. Pleural spaces: Unremarkable. No pleural effusion. No pneumothorax. Heart/Mediastinum: Unremarkable. No cardiomegaly. Bones/joints: Unremarkable. IMPRESSION: Stable peribronchial thickening. Worsening perihilar and infrahilar opacities bilaterally, worrisome for pneumonia.
--- NOTE | 2022-04-21 09:18 | PC.NURSE ---
pt placed on 2 L NC for oxygen sat of 91 on MD LAURY aware
--- NOTE | 2022-04-21 09:19 | HMH.EDGENADL ---
Discharge Plan Disposition Patient Disposition: Admitted As Inpatient Condition: Good Clinical Impressions Clinical Impression: Acute hypoxemic respiratory failure, Influenza A Pneumonia Qualifiers: Pneumonia type: due to unspecified organism Discharge ED Provider: Judi Castaneda General Adult HPI General Chief complaint: Nausea/Vomiting/Diarrhea Stated complaint: weakness Time Seen by Provider: 04/21/22 09:08 Mode of Arrival: EMS Source of Information: Patient Limitations: No Limitations Description of Symptoms (Recalled from ER Triage Doc. by RN): c/o n/v and lethargic per EMS, PT states that he cant keep any of his food down, and if I gave him some food he wouldnt eat it cause it just comes back up. Pt is from a [facility] resident. History of Present Illness HPI narrative: This patient is a 57-year-old male who is a resident of [facility] presenting to the emergency department via EMS for evaluation of cough, chest pain, shortness of breath, lethargy, nausea, vomiting, diarrhea and inability to tolerate oral intake for the last 3 days in the setting of recent flu diagnosis. Patient reports that he does not feel well, stating that his chest and belly hurt. Nothing seems to make it symptoms better or worse. EMS notes that he was hypoxic in route, but he does not usually wear oxygen. No other concerns noted at this time. Related Data Home Medications Medication Instructions Recorded Confirmed aripiprazole 20 mg tablet 30 mg PO DAILY Depression 06/30/17 04/21/22 benztropine 0.5 mg tablet 1 mg PO DAILY unknown 06/30/17 04/21/22 citalopram 20 mg tablet 20 mg PO DAILY Depression 06/30/17 04/21/22 diltiazem HCl 180 mg 180 mg PO DAILY Heart disease 06/30/17 04/21/22 capsule,extended release 24 hr donepezil 5 mg tablet 5 mg PO HS memory 06/30/17 04/21/22 metoclopramide HCl 10 mg tablet 10 mg PO TID stomach 06/30/17 04/21/22 mirtazapine 15 mg tablet 15 mg PO HS memory 06/30/17 04/21/22 phenytoin sodium extended 100 mg 100 mg PO TID seizures 06/30/17 04/21/22 capsule risperidone 1 mg tablet 3 mg PO BID mood 06/30/17 04/21/22 pantoprazole 20 mg tablet,delayed 20 mg PO DAILY GERD 05/04/20 04/21/22 release albuterol sulfate 1.25 mg/3 mL 1.25 mg inhalation QID Breathing 04/10/21 04/21/22 solution for nebulization problems loratadine 10 mg capsule 5 mg PO DAILY allergies 04/10/21 04/21/22 acetaminophen 325 mg tablet 650 mg PO Q4HP PRN Fever 04/21/22 04/21/22 hydroxyzine pamoate 50 mg capsule 50 mg PO BID PRN Anxiety 04/21/22 04/21/22 loperamide 2 mg capsule 2 mg PO Q6HP PRN Diarrhea 04/21/22 04/21/22 oseltamivir 75 mg capsule (Tamiflu) 75 mg PO BID Infection 04/21/22 04/21/22 Previous Rx's Medication Instructions Recorded clonazepam 0.5 mg tablet 0.5 mg PO TID Anxiety #90 tabs 02/13/22 phenobarbital 32.4 mg tablet 32.4 mg PO BID seizures #60 tabs 02/13/22 Allergies Allergy/AdvReac Type Severity Reaction Status Date / Time No Known Allergies Allergy Verified 04/27/21 10:42 [facility] Disclaimer: The information contained in this section may have been updated after the patient was seen, as this information can be updated by other users. Medical History (Updated 04/21/22 @ 14:08 by Keron Arroyo MD) Bipolar disorder BMI 37.0-37.9, adult Legally blind Seizure disorder Surgical History (Updated 04/21/22 @ 14:08 by Keron Arroyo MD) H/O colonoscopy S/P bronchoscopy with biopsy Family History (Updated 04/21/22 @ 14:08 by Keron Arroyo MD) Mother No problems noted. Father No problems noted. Social History Smoking Status: Current every day smoker tobacco type: cigarettes packs per day: 1 second hand exposure: No alcohol intake: never substance use type: marijuana current occupational status: disabled Travel in the last 8 weeks: None household members: other housing: assisted living facility
[2022-04-21 09:29] LABS: Coronavirus 19, PCR Not Detected (NotDetected); Influenza B, PCR Not Detected (NotDetected)
[2022-04-21 09:31] LABS: Basophils # 0.1 K/mm3 (0-0.2); Basophils % 1.7 % (0.1-2.0); Eosinophils # 0.1 K/mm3 (0.0-0.4); Eosinophils % 2.2 % (0.1-12.0); Hematocrit 44.9 % (42.0-52.0); Hemoglobin 14.6 g/dL (14.1-18.0); Lymphocytes # 0.8 K/mm3 (0.7-4.5); Lymphocytes % 17.1 % (10-50); Mean Corpuscular HGB Conc 32.6 g/dL (31.8-35.4); Mean Corpuscular Hemoglobin 30.8 pg (27.0-31.2); Mean Corpuscular Volume 94.4 fl (80-94); Mean Platelet Volume 8.7 fl (7.4-10.4); Monocytes # 0.4 K/mm3 (0.1-1.0); Monocytes % 8.2 % (1.7-9.3); Neutrophils # 3.3 K/mm3 (1.8-7.8); Neutrophils % 70.9 % (37.0-80.0); Platelet Count 349 K/mm3 (142-424); Red Blood Count 4.75 M/mm3 (4.60-6.20); Red Cell Distribution Width 15.3 % (11.5-17.5); White Blood Count 4.6 K/mm3 (4.8-10.8)
[2022-04-21 09:36] LABS: Chloride 102 mmol/L (98-107)
[2022-04-21 09:37] LABS: Potassium 3.1 mmoL/L (3.5-5.1); Sodium 144 mmol/L (136-145)
[2022-04-21 09:39] LABS: Alanine Aminotransferase 48 U/L (12-78); Albumin Level 4.4 g/dl (3.5-5.0); Albumin/Globulin Ratio 1.2 (1.1-1.8); Alkaline Phosphatase 98 U/L (38-126); Anion Gap 19.1 mEq/L (5-15); Aspartate Amino Transferase 52 U/L (17-59); Bilirubin,Total 0.5 mg/dl (0.2-1.3); Blood Urea Nitrogen 17 mg/dl (9-20); Carbon Dioxide 26 mmol/L (22.0-30.0); Creatinine Clearance Estimated 122 mL/min (50-200); Estimated Glomerular Filt Rate 77 ml/min (>60); GFR (African American) 94 ML/MIN (>60); Globulin 3.6 g/dL (1.3-3.2); Lipase 57 U/L (23-300)
[2022-04-21 09:40] LABS: Calcium 9.8 mg/dl (8.4-10.2); Glucose 104 mg/dl (74-100); Lactic Acid 1.2 mmol/L (0.7-2.1)
--- NOTE | 2022-04-21 09:43 | PC.NURSE ---
Addendum entered by Kelly Sherman RN 04/21/22 12:57: Pt asked me to throw his pants away due to stool in them. Original Note: Pt changed into clean gown, clean brief and fuller cath placed with urine sample collected. Pt tolerated well. Moderated amount of soft stool noted in brief. Niels Blancas Winding Lathe Operator assisted in pt care
--- NOTE | 2022-04-21 09:51 | ECG_ITS ---
APPROVED REPORT Exam: Resting ECG HR:87 bpm ECG Measurements Heart Rate 87 AXES AL 142 P 62 QRSd 91 QRS 32 QT 370 T 44 QTc 414 Conclusion SINUS RHYTHM NONSPECIFIC T-WAVE ABNORMALITY BORDERLINE ECG UNCONFIRMED REPORT Electronically signed by : Yaya Almonte MD 04/22/2022 19:59:20
[2022-04-21 09:55] LABS: Troponin I < 0.01 ng/ml (0.00-0.034)
[2022-04-21 09:56] LABS: Influenza A, PCR Detected (NotDetected)
[2022-04-21 11:01] LABS: Microscopic, Urine URINE MICROSCOPIC (MICROSCOPIC)
[2022-04-21 11:11] LABS: Appearance,Urine CLEAR (Clear); Blood, Urine Negative (Negative); Color,Urine YELLOW (Yellow); Glucose,Urine (UA) Negative (Negative); Ketones,Urine 3+ (Negative); Leukocyte Esterase,Urine Negative (Negative); Nitrate,Urine Negative (Negative); Protein,Urine 2+ (Negative); Specific Gravity, Urine >= 1.030 (1.005-1.030)
[2022-04-21 11:24] LABS: Bilirubin,Urine 3+ (Negative)
[2022-04-21 11:25] LABS: Amorphous Sediment,Urine Trace /lpf; Bacteria,Urine Trace /lpf; Squamous Epithelial Cell,Urine Occasional #/hpf (0-5); WBC,Urine Occasional #/hpf (0-3)
[2022-04-21 12:40] LABS: Procalcitonin 0.095 ng/mL (0.0-2.0)
[2022-04-21 12:56] LABS: Lactic Acid 0.8 mmol/L (0.7-2.1)
--- NOTE | 2022-04-21 12:56 | PC.NURSE ---
report called Ebony WYATT
[2022-04-21 13:13] LABS: Troponin I < 0.01 ng/ml (0.00-0.034)
--- NOTE | 2022-04-21 14:03 | EXP.HP ---
History of Present Illness *Admission Date: 04/21/22 *Reason for visit:: Chief complaint: Weakness *History of present illness: This is a 57-year-old male that presents to [facility] emergency department from his assisted living facility [facility] with concerns of nausea vomiting diarrhea, shortness of air and generalized weakness over the last few days. His past medical history significant for seizure disorder, bipolar disorder, hypertension, dementia, legally blind and influenza A diagnoses April 09, 2022. He has had several episodes of nausea vomiting and diarrhea that seem to be improving with no recognized hematochezia, melena or hematemesis. Stools described as brown and watery. He has had some tenesmus prior to evacuation. He reports some shortness of air made worse with activity. He describes occasional cough with ongoing nasal congestion and postnasal drip. His ED vitals have been reviewed including BMI 37. His CBC identifies a normal white blood cell count and hemoglobin of 14. His electrolytes identify potassium 3.1 with a normal creatinine. His LFTs and lipase are normal. His procalcitonin is negative. Chest x-ray is consistent with infrahilar opacities bilaterally. Blood cultures were acquired and then he has received IV antibiotic therapy. He is requiring oxygen to maintain appropriate oxygen saturations. [facility] Disclaimer: The information contained in this section may have been updated after the patient was seen, as this information can be updated by other users. Medical History (Updated 04/21/22 @ 14:08 by Keron Arroyo MD) Bipolar disorder BMI 37.0-37.9, adult Legally blind Seizure disorder Surgical History (Updated 04/21/22 @ 14:08 by Keron Arroyo MD) H/O colonoscopy S/P bronchoscopy with biopsy Family History Mother No problems noted. Father No problems noted. Social History Smoking Status: Current every day smoker tobacco type: cigarettes packs per day: 1 second hand exposure: No alcohol intake: never substance use type: marijuana current occupational status: disabled Travel in the last 8 weeks: None household members: other housing: assisted living facility current occupational exposures/hazards: No caffeine: Yes Review of Systems Review of Systems Review of systems:: pertinent systems reviewed and negative unless documented below Constitutional Constitutional: Reports chills and Reports fever(s) ENT Ears, Nose, Mouth, and Throat: Reports nasal congestion *Cardiovascular Cardiovascular: Denies chest pain and Reports dyspnea on exertion *Respiratory Respiratory: Reports cough and Reports dyspnea on exertion *Gastrointestinal Gastrointestinal: Reports diarrhea, Reports nausea and Reports vomiting Meds Home Medications and Allergies Home Medications Medication Instructions Recorded Confirmed Type aripiprazole 20 mg tablet 30 mg PO DAILY Depression 06/30/17 04/21/22 History benztropine 0.5 mg tablet 1 mg PO DAILY unknown 06/30/17 04/21/22 History citalopram 20 mg tablet 20 mg PO DAILY Depression 06/30/17 04/21/22 History diltiazem HCl 180 mg 180 mg PO DAILY Heart disease 06/30/17 04/21/22 History capsule,extended release 24 hr donepezil 5 mg tablet 5 mg PO HS memory 06/30/17 04/21/22 History metoclopramide HCl 10 mg tablet 10 mg PO TID stomach 06/30/17 04/21/22 History mirtazapine 15 mg tablet 15 mg PO HS memory 06/30/17 04/21/22 History phenytoin sodium extended 100 mg 100 mg PO TID seizures 06/30/17 04/21/22 History capsule risperidone 1 mg tablet 3 mg PO BID mood 06/30/17 04/21/22 History pantoprazole 20 mg tablet,delayed 20 mg PO DAILY GERD 05/04/20 04/21/22 History release albuterol sulfate 1.25 mg/3 mL 1.25 mg inhalation QID Breathing 04/10/21 04/21/22 History solution for nebulization problems
--- NOTE | 2022-04-21 14:22 | PC.NURSE ---
Pt arrived to the floor at this time.
[2022-04-21 14:39] LABS: ABG Base Excess 0.7 mmol/L (-2.4-2.3); ABG Oxygen Saturation 92 % (90-100); ABG PH 7.31 mmol/L (7.35-7.45); ABG PO2 67.2 mmhg (80-100); ABG TCO2 28.7 mmhg (23-27)
[2022-04-21 14:40] LABS: Allen's Test Patient Unable; Oxygen 2 LPM NC %; Source Right Radial
[2022-04-21 14:41] LABS: ABG PCO2 54.8 mmhg (35.0-45.0)
[2022-04-21 14:41] LABS: POC Glucose,Bedside 90 (70-110)
[2022-04-21 16:12] LABS: Troponin I < 0.01 ng/ml (0.00-0.034)
--- NOTE | 2022-04-21 16:40 | EXP.EVENT.NO ---
I received communication from Raquel WYATT that the patient came over from the ED on oxygen with appropriate saturations, good pulses but not responsive to oral or pain stimuli. Joaquina WYATT tried to reach [facility] to assess the patient's medications of the day. Medication reviewed identified Klonopin as a prescribed medication. At 1430 a stat ABG was acquired demonstrating elevated CO2 and BiPAP was started. A trial of BiPAP therapy did not improve his mental status. At 1636 Romazicon 0.2 mg was administered slow push IV with ACLS car at bedside. Within 2 minutes of medication administration the patient became alert and interactive. We will continue with routine care and close monitoring.
--- NOTE | 2022-04-21 16:43 | PC.NURSE ---
HUBER AT BEDSIDE WHILE ADMINISTERING 2MLS OF FLUMAZENIL. PT NOW AWAKE, ALERT TO SELF AND LOCATION AT THIS TIME.
[2022-04-22] VITALS (12 sets, daily range): BP systolic 110–162; BP diastolic 67–99; PULSE 59–87; RESP 16–20; TEMP 36.8–37.2; O2SAT 95–99; BMI 30.9
[2022-04-22 05:22] LABS: Campylobacter Not Detected (NotDetected); Clostridium Difficile A/B, PCR Not Detected (NotDetected); Cryptosporidium Not Detected (NotDetected); Enteroaggregative E coli Not Detected (NotDetected); Enterotoxigenic E coli Not Detected (NotDetected); Plesimonas Shigalloides, PCR Not Detected (NotDetected); Salmonella, PCR Not Detected (NotDetected); Shiga-like toxin E coli Not Detected (NotDetected); Shigella Enterovasive E coli Not Detected (NotDetected); Vibrio Cholerae Not Detected (NotDetected); Vibrio, PCR Not Detected (NotDetected); Yersinia Entercolitica, PCR Not Detected (NotDetected)
[2022-04-22 05:23] LABS: Adenovirus F 40/41, stool Not Detected (NotDetected); Astrovirus Not Detected (NotDetected); Cyclospora Cayetanesis Not Detected (NotDetected); Entamoeba histolytica Not Detected (NotDetected); Giardia lamblia Not Detected (NotDetected); Norovirus Not Detected (NotDetected); Rotavirus A Not Detected (NotDetected); Sapovirus Not Detected (NotDetected)
[2022-04-22 07:23] LABS: Basophils % 0.8 % (0.1-2.0); Eosinophils # 0.2 K/mm3 (0.0-0.4); Eosinophils % 3.2 % (0.1-12.0); Hematocrit 38.6 % (42.0-52.0); Lymphocytes # 0.9 K/mm3 (0.7-4.5); Lymphocytes % 18.7 % (10-50); Mean Corpuscular HGB Conc 32.6 g/dL (31.8-35.4); Mean Corpuscular Hemoglobin 31.2 pg (27.0-31.2); Mean Corpuscular Volume 95.6 fl (80-94); Mean Platelet Volume 8.2 fl (7.4-10.4); Monocytes # 0.4 K/mm3 (0.1-1.0); Monocytes % 7.8 % (1.7-9.3); Neutrophils # 3.5 K/mm3 (1.8-7.8); Neutrophils % 70.3 % (37.0-80.0); Platelet Count 300 K/mm3 (142-424); Red Blood Count 4.03 M/mm3 (4.60-6.20); Red Cell Distribution Width 15.1 % (11.5-17.5)
[2022-04-22 07:24] LABS: Hemoglobin 12.6 g/dL (14.1-18.0)
--- NOTE | 2022-04-22 07:29 | PC.NURSE ---
Pt c/o nausea 1x and APARICIO 1x t/o shift. PRN medications administered per MAR. Pt has been a/o x4 but slow to answer. Pt has had 3 loose yellow BMs during shift. Pedersen in place draining dark yellow urine with sediment. Call light within reach.
[2022-04-22 07:42] LABS: Chloride 111 mmol/L (98-107); Sodium 142 mmol/L (136-145)
[2022-04-22 07:43] LABS: Potassium 4.3 mmoL/L (3.5-5.1)
--- NOTE | 2022-04-22 07:43 | P.CONPHA_ITS ---
Pharmacy Intervention Comments: MEDICATION RECONCILIATION COMPLETED ON PATIENT USING MAR FROM HALF-WAY. -CHEKO MCGINNIS, OLLIED
--- NOTE | 2022-04-22 07:43 | HMH.PHAINT1 ---
Pharmacy Intervention Comments: MEDICATION RECONCILIATION COMPLETED ON PATIENT USING MAR FROM RETIREMENT. -CHEKO MCGINNIS, OLLIED
[2022-04-22 07:45] LABS: Blood Urea Nitrogen 14 mg/dl (9-20); Creatinine Clearance Estimated 136 mL/min (50-200); Estimated Glomerular Filt Rate 117 ml/min (>60); GFR (African American) 141 ML/MIN (>60)
[2022-04-22 07:46] LABS: Anion Gap 10.3 mEq/L (5-15); Calcium 8.5 mg/dl (8.4-10.2); Carbon Dioxide 25 mmol/L (22.0-30.0); Glucose 94 mg/dl (74-100); Magnesium 1.8 mg/dl (1.6-2.3)
--- NOTE | 2022-04-22 09:08 | PC.NURSE ---
pt in room awake
[2022-04-22 09:51] LABS: Enteropathogenic E coli Detected (NotDetected)
--- NOTE | 2022-04-22 10:01 | HMH.OTEV ---
OT Inpatient Evaluation Rehab OT IP Evaluation Start: 04/22/22 09:12 Freq: ONCE Status: Active Protocol: Document 04/22/22 09:49 LISY (Rec: 04/22/22 10:00 [facility] [id number]) Rehab OT IP Assessment Subjective History Pt oriented x 2 on arrival. Pt's response to questions are delayed. He appears to be confused about his PLOF. He was able to report he lived at [facility] prior to being in the hospital. Pt was admitted on 04/21/22 due to weakness along with nausea vomiting diarrhea, and shortness of air . Pt claims he was independent with all ADLs prior to being in the hospital . He reports he used a walker during ambulation. Information pt provided may not be trustworthy due to confusion. Pt has a past medical history of: Bipolar disorder BMI 37.0-37.9, adult Legally blind Seizure disorder Subjective I'm not real sure. Objective Patient Orientation Person,Birthday Upper Extremity Gross ROM WFL Bed Mobility bed mobility-scooting,bed mobility - supine/sit,bed mobility - rolling Assist Level Minimal x 1 (25% assist) Transfer Training Sit/Stand/Pivot Transfer Assist Level Moderate x 1 (50% assist) Lower Body Dressing Ability Maximum Assistance Rehab OT IP prob,goals,plan Problems Date of Evaluation: 04/22/22 OT IP Problems Bed Mobility,Transfers,Balance ,Self care,Safety Rehab Potential Rehab Potential Good Equipment Needs Assistive Devices Rolling / Wheeled Walker Plan OT intervention Plan Bed Mobility,Transfers,Balance ,Self care,Safety,Therapeutic Exercise OT Plan Frequency BID Duration LOS Discharge Goals Bed Mobility Ability Standby Assistance Sit to Stand Chair Transfer Ability Minimal x 1 (25% assist) Chair Transfer Ability Minimal x 1 (25% assist) Chair Transfer Technique Sit to/from Ambulatory
--- NOTE | 2022-04-22 10:01 | HMH.OTEV ---
OT Inpatient Evaluation Rehab OT IP Evaluation Start: 04/22/22 09:12 Freq: ONCE Status: Active Protocol: Document 04/22/22 09:49 LISY (Rec: 04/22/22 10:00 [facility] [id number]) Rehab OT IP Assessment Subjective History Pt oriented x 2 on arrival. Pt's response to questions are delayed. He appears to be confused about his PLOF. He was able to report he lived at [facility] prior to being in the hospital. Pt was admitted on 04/21/22 due to weakness along with nausea vomiting diarrhea, and shortness of air . Pt claims he was independent with all ADLs prior to being in the hospital . He reports he used a walker during ambulation. Information pt provided may not be trustworthy due to confusion. Pt has a past medical history of: Bipolar disorder BMI 37.0-37.9, adult Legally blind Seizure disorder Subjective I'm not real sure. Objective Patient Orientation Person,Birthday Upper Extremity Gross ROM WFL Bed Mobility bed mobility-scooting,bed mobility - supine/sit,bed mobility - rolling Assist Level Minimal x 1 (25% assist) Transfer Training Sit/Stand/Pivot Transfer Assist Level Moderate x 1 (50% assist) Lower Body Dressing Ability Maximum Assistance Rehab OT IP prob,goals,plan Problems Date of Evaluation: 04/22/22 OT IP Problems Bed Mobility,Transfers,Balance ,Self care,Safety Rehab Potential Rehab Potential Good Equipment Needs Assistive Devices Rolling / Wheeled Walker Plan OT intervention Plan Bed Mobility,Transfers,Balance ,Self care,Safety,Therapeutic Exercise OT Plan Frequency BID Duration LOS Discharge Goals Bed Mobility Ability Standby Assistance Sit to Stand Chair Transfer Ability Minimal x 1 (25% assist) Chair Transfer Ability Minimal x 1 (25% assist) Chair Transfer Technique Sit to/from Ambulatory
--- NOTE | 2022-04-22 10:53 | HMH.SLDYSPHA ---
Speech & Language Evaluation Speech/Language Dysphagia Evaluation Start: 04/22/22 08:57 Freq: ONCE Status: Active Protocol: Document 04/22/22 08:58 BRITTNY (Rec: 04/22/22 10:53 BRITTNY [id number]) Dysphagia Assess/Goals/Plan Assessment Date of Evaluation: 04/22/22 Evaluation Type Initial Certification Assessment/Problems Concerns for aspiration pneumonia per physician order. Does Patient Qualify for Service No Qualify/Failure Comment Based on the results of the clinical swallow evaluation, no further skilled ST services are warranted at this time. Recommendations PHYSICIAN CERTIFICATION: The specified therapy services are required, authorized, and reviewed every 30 days. Diet Recommendations Mechanical Soft Liquid Type Recommendations Normal/Thin SL Swallow Guidelines Assist w/all meals,Standard Aspiration Prec. Dysphagia Swallow Precautions/Strategies Sitting Upright (90 deg),Small Bites and Sips,Alternate Liquids/Solids Plan Pt/Guardian verbally ack understanding Yes of dx/prognosis/goals Pt/Guardian verbally ack understanding Yes of/consent to tx prog G -code Required No Education Instructions provided CSE results and diet recommendations discussed with pt, care management, nursing, and MD, who expressed understanding. Pt/Caregiver able to recall information Able to recall/restate Reinforcement needed No Speech & Language HPI History Present Illness Description of Patient Problem Mr. Lockwood is a 57 y.o. male who presented to [facility] ED for nausea, vomiting, diarrhea, SOA, and weakness. CXR is worrisome for pneumonia. PMH significant for bipolar disorder, dementia, and pt is legally blind. Rehab Services Assessed Speech therapy General Information General Current Food Consistancy Regular,Thin Liquids Dentition Edentulous Oxygen Status Nasal Cannula Ability to Follow Directions Fair Communication Ability Moderate Impairment Dysphagia:Food Presentation Evaluation Food Type Regular,Liquid Dysphagia Evaluation Regular Food Difficulty chewing,Residual on Behavior Response tongue Dysphagia Evaluation Summary Clinical swallow evaluation completed to analyze and
--- NOTE | 2022-04-22 11:40 | EXP.PN ---
Subjective *Date: 04/22/22 *Time: 16:59 Interval history: Date of service April 22, 2022 I am accompanied by several staff from MDR rounds team. The patient has just finished evaluation by speech therapy and they have identified concerns with his swallowing and are currently recommending mechanical soft/ground textures with thin liquids. PT and OT are recommending correction facility placement. Nursing staff report that he remains afebrile with stable vital signs and saturating appropriately on room air. His morning labs have been reviewed and discussed including normal white blood cell count, hemoglobin 12.6, normal potassium and creatinine. His sputum culture is negative. Exam Data for Last 24 hours Vital signs and Labs for Last 24 Hours: Temp Pulse Resp BP Pulse Ox FiO2 98.5 F 68 18 157/99 H 98 50 04/22/22 08:00 04/22/22 08:00 04/22/22 08:00 04/22/22 08:00 04/22/22 08:00 04/21/22 14:30 Laboratory Results - last 24 hr 04/21/22 09:15: Procalcitonin 0.095 04/21/22 12:40: Troponin I < 0.01 04/21/22 12:40: Lactate 0.8 04/21/22 14:26: POC Glucose 90 04/21/22 14:35: Specimen Source Right radial, O2 % 2 lpm nc, ABG pH 7.31 L, ABG pCO2 54.8 H, ABG pO2 67.2 L, ABG HCO3 27.0 H, ABG Total CO2 28.7 H, ABG O2 Saturation 92, ABG Base Excess 0.7, Rainer Test Patient unable 04/21/22 15:13: Troponin I < 0.01 04/22/22 05:10: Stl Aeromonas (PCR) Not detected, Stl C. cayetanensis PCR Not detected, Stool Rotavirus (PCR) Not detected, Stl Adenov F 40/41 PCR Not detected, Stool Astrovirus (PCR) Not detected, Stool Campylobacter PCR Not detected, Stl C.difficile Tox PCR Not detected, Stool Cryptosporidium PCR Not detected, Stl E.coli Shiga Tox PCR Not detected, Stool E coli O157 PCR Not detected, Stl Enterotoxigenic E PCR Not detected, Stool EPEC (PCR) Detected A, Stool EAEC (PCR) Not detected, Stl E. histolytica PCR Not detected, Stool Giardia Lamblia PCR Not detected, Stool Salmonella PCR Not detected, Stool Sapovirus (PCR) Not detected, Stl P. shigelloides PCR Not detected, Stl Shigella/EIEC PCR Not detected, St Y.enterocolitica PCR Not detected, Stool Vibrio (PCR) Not detected, Stl Vibrio cholerae PCR Not detected, Stl Norovirus GI/GII PCR Not detected 04/22/22 07:14: WBC 5.0, RBC 4.03 L, Hgb 12.6 L D, Hct 38.6 L, MCV 95.6 H, MCH 31.2, MCHC 32.6, RDW 15.1, Plt Count 300, MPV 8.2, Neut % (Auto) 70.3, Lymph % (Auto) 18.7, [place] % (Auto) 7.8, Eos % (Auto) 3.2, Baso % (Auto) 0.8, Neut # (Auto) 3.5, Lymph # (Auto) 0.9, [place] # (Auto) 0.4, Eos # (Auto) 0.2, Baso # (Auto) 0.0 04/22/22 07:14: Sodium 142, Potassium 4.3 D, Chloride 111 H, Carbon Dioxide 25, Anion Gap 10.3, BUN 14, Creatinine 0.70 D, Estimated Creat Clear 136, Estimated GFR 117, Est GFR ( Amer) 141 D, Glucose 94, Calcium 8.5, Magnesium 1.8 I & O for Last 24 hours: Intake & Output 04/19/22 04/20/22 04/21/22 04/22/22 23:59 23:59 23:59 23:59 Intake Total 1687 / 1687 Output Total 900 / 900 Balance 787 / 787 Weight 81.845 kg 82 kg Microbiology Reports for the Last 24 Hours: Microbiology 04/21/22 18:14 Sputum - Expectorated Sputum Gram Stain - Final 04/21/22 18:14 Sputum - Expectorated Sputum Sputum Culture - Preliminary Constitutional Constitutional: no acute distress and cooperative *Routine HEENT Exam Head: Present normocephalic Eye: Present EOMI and PERRL ENT: Present mucous membranes moist *Routine Neck Exam Neck: Present supple; Absent lymphadenopathy *Routine Respiratory Exam Respiratory: Present rhonchi, normal respiratory effort and symmetric chest movement; Absent respiratory distress *Routine Cardiovascular Exam Cardiovascular: Present RRR, Normal S1 and Normal S2; Absent murmur *Routine Abdominal Exam Abdominal: Present soft and normoactive bowel sounds; Absent tenderness *Routine Extremities Exam Extremities: Present full ROM, pulses intact and normal capillary refill; Absent cyanosis, clubbing or edema *Routine Skin Exam Sk
--- NOTE | 2022-04-22 13:54 | PC.NURSE ---
patient laying in bed asleep
--- NOTE | 2022-04-22 14:05 | HMH.PTEV ---
Physical Therapy Evaluation Rehab PT IP Evaluation Start: 04/22/22 09:12 Freq: ONCE Status: Active Protocol: Document 04/22/22 13:00 PHOLIZ (Rec: 04/22/22 14:04 PHORJORGE LUIS [id number]) Subjective/History History History 57 yowm adm to [facility]. He reports being generally independent with all mobility prior to adm . Subjective Subjective Pt with no c/o other than feeling tired this pm. Continues to have significant diarrhea. Rehab PT IP Eval Objective Appearance Patient Behavior Appropriate Patient Orientation Person,Place,Time Difficulty following instructions none Speech Pattern Clear Ambulation Patient Able to Ambulate No Balance Ability to Arise Able, uses arms to help Sitting Balance Steady, safe Standing Balance Steady, wide stance Dynamic Sitting Balance Ability Good Dynamic Standing Balance Ability Fair Transfers Bed Transfer Ability Minimal x 2 (25% assist) Chair Transfer Ability Minimal x 2 (25% assist) Sit to Stand Bed Transfer Ability Minimal x 2 (25% assist) Sit to Stand Chair Transfer Ability Minimal x 2 (25% assist) ROM All Extremities PT ROM Status WFL MMT All Extremities PT MMT WFL Rehab PT IP prob,goals,plan Problems Date of Evaluation: 04/22/22 PT IP Problems Bed Mobility,Transfers,Gait Rehab Potential Rehab Potential Good Plan PT Intervention Plan Bed Mobility,Transfers,Gait, Therapeutic Exercise PT Plan Frequency BID Duration LOS Discharge Goals Bed Transfer Ability Minimal x 1 (25% assist) Sit to Stand Chair Transfer Ability Minimal x 1 (25% assist) Ambulation Assistive Device None Ambulation Distance (feet) 20 Discharge Plan PT Discharge Plan Pt is currently most appropriate for rehab placement, but could return to personal jail should his mobility considerably improve . G -code Required No Eval Complexity Eval Charge Codes 39715 - Moderate Complexity PHYSICIAN CERTIFICATION: I certify the specified therapy services for Porfirio Lockwood are required, authorized, and reviewed every 30 days.
--- NOTE | 2022-04-22 14:42 | SW/DCPLANNER ---
Addendum entered by Karolina Cooper 04/24/22 13:05: This patient will discharge to [facility] level of care today. I have updated Kirsten stubbs/ [facility]. Addendum entered by Karolina Cooper 04/23/22 12:31: [facility] stated that she can accept this patient once medically stable for discharge. Original Note: This patient currently resides at [facility]. PT evaluated patient today and stated that unless patient shows improvement he could benefit from placement short term. I have faxed patient information to [facility] in case if placement is needed at discharge. Discharge date is unknown at this time. I will continue to update patient and K[facility] Melton.
--- NOTE | 2022-04-22 16:47 | EXP.PN ---
Subjective *Date: 04/22/22 *Time: 16:47 Interval history: Date of service 04/22/2022 Exam Data for Last 24 hours Vital signs and Labs for Last 24 Hours: Temp Pulse Resp BP Pulse Ox FiO2 98.5 F 59 L 16 110/67 99 50 04/22/22 16:00 04/22/22 16:00 04/22/22 16:00 04/22/22 16:00 04/22/22 16:00 04/21/22 14:30 Laboratory Results - last 24 hr 04/22/22 05:10: Stl Aeromonas (PCR) Not detected, Stl C. cayetanensis PCR Not detected, Stool Rotavirus (PCR) Not detected, Stl Adenov F 40/41 PCR Not detected, Stool Astrovirus (PCR) Not detected, Stool Campylobacter PCR Not detected, Stl C.difficile Tox PCR Not detected, Stool Cryptosporidium PCR Not detected, Stl E.coli Shiga Tox PCR Not detected, Stool E coli O157 PCR Not detected, Stl Enterotoxigenic E PCR Not detected, Stool EPEC (PCR) Detected A, Stool EAEC (PCR) Not detected, Stl E. histolytica PCR Not detected, Stool Giardia Lamblia PCR Not detected, Stool Salmonella PCR Not detected, Stool Sapovirus (PCR) Not detected, Stl P. shigelloides PCR Not detected, Stl Shigella/EIEC PCR Not detected, St Y.enterocolitica PCR Not detected, Stool Vibrio (PCR) Not detected, Stl Vibrio cholerae PCR Not detected, Stl Norovirus GI/GII PCR Not detected 04/22/22 07:14: WBC 5.0, RBC 4.03 L, Hgb 12.6 L D, Hct 38.6 L, MCV 95.6 H, MCH 31.2, MCHC 32.6, RDW 15.1, Plt Count 300, MPV 8.2, Neut % (Auto) 70.3, Lymph % (Auto) 18.7, [place] % (Auto) 7.8, Eos % (Auto) 3.2, Baso % (Auto) 0.8, Neut # (Auto) 3.5, Lymph # (Auto) 0.9, [place] # (Auto) 0.4, Eos # (Auto) 0.2, Baso # (Auto) 0.0 04/22/22 07:14: Sodium 142, Potassium 4.3 D, Chloride 111 H, Carbon Dioxide 25, Anion Gap 10.3, BUN 14, Creatinine 0.70 D, Estimated Creat Clear 136, Estimated GFR 117, Est GFR ( Amer) 141 D, Glucose 94, Calcium 8.5, Magnesium 1.8 I & O for Last 24 hours: Intake & Output 04/19/22 04/20/22 04/21/22 04/22/22 23:59 23:59 23:59 23:59 Intake Total 1807 / 1807 Output Total 900 / 900 Balance 907 / 907 Weight 81.845 kg 82 kg Microbiology Reports for the Last 24 Hours: Microbiology 04/21/22 18:14 Sputum - Expectorated Sputum Gram Stain - Final 04/21/22 18:14 Sputum - Expectorated Sputum Sputum Culture - Preliminary
--- NOTE | 2022-04-22 17:57 | PC.NURSE ---
pt has had 3 BM this shift
--- NOTE | 2022-04-22 18:59 | PC.NURSE ---
Pt was confused on morning assessment but became more alert as the shift progressed. Rhonchi noted t/o lung marcano. He is on 3L NC with o2 sats measuring >95%. He's denied any complaints. Bed is locked and in the lowest position, call light within reach.
[2022-04-23] VITALS (12 sets, daily range): BP systolic 145–171; BP diastolic 90–100; PULSE 64–84; RESP 16–22; TEMP 36.6–37.1; O2SAT 95–98; BMI 30.4
--- NOTE | 2022-04-23 03:41 | PC.NURSE ---
Pt is laying in bed awake at this time. A/O to person and place. Pt has been awake most of the night, has rang call light several times. Pt has Denied any pain, resp have been even and non labored, lungs are diminished. Pt is wearing 02 at 3L per NC. Has not been on his bipap tonight. Pt refused it. Pt had a bed bath, was incontinent through the night. Pt encouraged to call out for any needs, bed is locked in low position, side rails up x 2, call light in reach. Pt's Iv 20g in LAC is patent, no s/sx of infection at IV site.
[2022-04-23 06:42] LABS: Basophils % 0.7 % (0.1-2.0); Eosinophils # 0.1 K/mm3 (0.0-0.4); Eosinophils % 2.2 % (0.1-12.0); Hematocrit 40.3 % (42.0-52.0); Lymphocytes # 0.9 K/mm3 (0.7-4.5); Mean Corpuscular HGB Conc 32.3 g/dL (31.8-35.4); Mean Corpuscular Hemoglobin 30.4 pg (27.0-31.2); Mean Corpuscular Volume 94.1 fl (80-94); Mean Platelet Volume 8.4 fl (7.4-10.4); Monocytes # 0.4 K/mm3 (0.1-1.0); Monocytes % 7.8 % (1.7-9.3); Neutrophils # 3.2 K/mm3 (1.8-7.8); Neutrophils % 70.4 % (37.0-80.0); Platelet Count 318 K/mm3 (142-424); Red Blood Count 4.28 M/mm3 (4.60-6.20); White Blood Count 4.6 K/mm3 (4.8-10.8)
[2022-04-23 06:48] LABS: Chloride 103 mmol/L (98-107); Sodium 143 mmol/L (136-145)
[2022-04-23 06:52] LABS: Blood Urea Nitrogen 4 mg/dl (9-20); Calcium 8.5 mg/dl (8.4-10.2); Carbon Dioxide 34 mmol/L (22.0-30.0); Creatinine Clearance Estimated 189 mL/min (50-200); Estimated Glomerular Filt Rate 172 ml/min (>60); GFR (African American) 208 ML/MIN (>60); Glucose 99 mg/dl (74-100)
[2022-04-23 07:09] LABS: Anion Gap 8.9 mEq/L (5-15); Potassium 2.9 mmoL/L (3.5-5.1)
[2022-04-23 07:34] LABS: Procalcitonin 0.072 ng/mL (0.0-2.0)
--- NOTE | 2022-04-23 14:51 | PC.NURSE ---
patient has done well this shift. while awake can be on room air with no difficulty. while asleep did require 2l of oxygen. patient has been speaking appropriately with staff, some confusion at times. has been incontinent. has not been wanting to get up. can readjust self some in bed. encouraging turns. no complaints.
--- NOTE | 2022-04-23 19:44 | EXP.ACUTE.PN ---
Subjective *Date: 04/23/22 *Time: 12:12 Interval history: No acute events overnight. He is tolerating O2 wean. complaining of nausea after eating. No diarrhea, CP, APARICIO. tolerating PO intake. sleeping alot, but does wake with stimuli and answers questions appropriately. Medical Exam Vital signs and Labs for Last 24 Hours: Vital Signs Temp Pulse Pulse Resp BP Pulse Ox 04/23/22 18:50 66 04/23/22 18:50 65 04/23/22 18:50 98 04/23/22 16:00 75 04/23/22 16:00 98.1 F 84 16 161/90 H 98 04/23/22 12:00 70 04/23/22 08:00 70 04/23/22 13:10 95 04/23/22 12:00 98.3 F 78 16 155/90 H 97 04/23/22 08:00 98.7 F 70 16 171/96 H 98 04/23/22 06:29 68 04/23/22 06:29 72 04/23/22 06:29 95 04/23/22 06:00 70 04/23/22 03:45 98.7 F 64 22 145/100 H 97 04/23/22 04:00 146/92 H 04/23/22 00:00 70 04/22/22 20:00 70 04/22/22 20:00 76 98 04/23/22 00:18 74 04/23/22 00:18 75 04/22/22 23:52 99.0 F 70 20 162/93 H 98 Intake and Output 04/23/22 04/23/22 04/23/22 07:59 15:59 23:59 Intake Total 546 / 826 160 / 826 120 / 826 Output Total 0 / 0 0 / 0 Balance 546 / 826 160 / 826 120 / 826 Intake: Intake, Oral Amount 160 / 280 120 / 280 Intake, Total IV Amount 546 / 546 0.9 % Sodium Chloride 1,000 ml 546 / 546 @ 100 mls/hr IV .Q10H [facility], [facility]–1983 Rx#: [id number] Output: Output, Urine Amount 0 / 0 0 / 0 Other: Number of Unmeasured Voids 1 1 1 Weight 80.91 kg Patient Weight 04/23/22 23:59 Weight 80.91 kg Laboratory Results - last 24 hr 04/23/22 06:21: WBC 4.6 L, RBC 4.28 L, Hgb 13.0 L, Hct 40.3 L, MCV 94.1 H, MCH 30.4, MCHC 32.3, RDW 15.0, Plt Count 318, MPV 8.4, Neut % (Auto) 70.4, Lymph % (Auto) 19.0, [place] % (Auto) 7.8, Eos % (Auto) 2.2, Baso % (Auto) 0.7, Neut # (Auto) 3.2, Lymph # (Auto) 0.9, [place] # (Auto) 0.4, Eos # (Auto) 0.1, Baso # (Auto) 0.0 04/23/22 06:21: Sodium 143, Potassium 2.9 L* D, Chloride 103, Carbon Dioxide 34 H, Anion Gap 8.9, BUN 4 L D, Creatinine 0.50 L D, Estimated Creat Clear 189, Estimated GFR 172, Est GFR ( Amer) 208 D, Glucose 99, Calcium 8.5 04/23/22 06:21: Procalcitonin 0.072 I & O for Labs for Last 24 Hours: Intake & Output 04/20/22 04/21/22 04/22/22 04/23/22 23:59 23:59 23:59 23:59 Intake Total 2047 / 2047 826 / 826 Output Total 900 / 900 0 / 0 Balance 1147 / 1147 826 / 826 Weight 81.845 kg 82 kg 80.91 kg Microbiology Reports for the Last 24 Hours: Microbiology 04/21/22 09:15 Blood Blood Culture - Preliminary NO GROWTH AFTER 48 HOURS 04/21/22 09:15 Blood Blood Culture - Preliminary NO GROWTH AFTER 48 HOURS 04/21/22 18:14 Sputum - Expectorated Sputum Gram Stain - Final 04/21/22 18:14 Sputum - Expectorated Sputum Sputum Culture - Preliminary Constitutional: Present no acute distress, obese and chronically ill appearing Head: Present atraumatic and normocephalic ENT: Present normal exam Neck: Present normal inspection and tenderness Respiratory: Present accessory muscle use, prolonged expiratory phase, rhonchi, wheezes, crackles (in posterior lung marcano) and normal respiratory effort Cardiac: Present Reg Rate and Rhythm GI: Present soft and normal bowel sounds Extremities: Present normal inspection and full ROM Skin: Present intact; Absent erythema Neuro: Present Grossly Intact and moves all extremities Assessment and Plan *Assessment and plan (1) Pneumonia: Status: Acute Qualifiers: Pneumonia type: due to unspecified organism Category: Medical Code(s): J18.9 - Pneumonia, unspecified organism (2) Influenza A: Status: Acute Category: Medical Code(s): J10.1 - Influenza due to other identified influenza virus with other respiratory manifestations (3) Acute hypoxemic respiratory failure:
[2022-04-24] VITALS (8 sets, daily range): BP systolic 138–165; BP diastolic 78–98; PULSE 70–88; RESP 16–17; TEMP 35.5–37.1; O2SAT 92–97; BMI 30.8
--- NOTE | 2022-04-24 03:55 | PC.NURSE ---
Pt has been awake most of shift, has rang call light about very 10 minutes just wanting to talk. Lung sounds rhonchi, bilat this morning. Resp even and non labored. Pt has been incontinent through the night. Has been A/O x place and name. IV is patent with NS running at 100ml/hr no s/sx of infection at site. Bed locked in low position, side rails up x 2, call light within reach.
--- NOTE | 2022-04-24 07:54 | EXP.DC.SUM ---
General Admission date:: 04/21/22 Discharge date: 04/24/22 HPI HPI HPI: This is a 57-year-old male that presents to [facility] emergency department from his assisted living facility [facility] with concerns of nausea vomiting diarrhea, shortness of air and generalized weakness over the last few days. His past medical history significant for seizure disorder, bipolar disorder, hypertension, dementia, legally blind and influenza A diagnoses April 09, 2022. He has had several episodes of nausea vomiting and diarrhea that seem to be improving with no recognized hematochezia, melena or hematemesis. Stools described as brown and watery. He has had some tenesmus prior to evacuation. He reports some shortness of air made worse with activity. He describes occasional cough with ongoing nasal congestion and postnasal drip. His ED vitals have been reviewed including BMI 37. His CBC identifies a normal white blood cell count and hemoglobin of 14. His electrolytes identify potassium 3.1 with a normal creatinine. His LFTs and lipase are normal. His procalcitonin is negative. Chest x-ray is consistent with infrahilar opacities bilaterally. Blood cultures were acquired and then he has received IV antibiotic therapy. He is requiring oxygen to maintain appropriate oxygen saturations. Hospital Course Hospital Course Hospital Course: Pneumonia Influenza A Acute Hypoxic respiratory failure -Positive for flu on admission. Treated with antibiotics for pneumonia and flu. Gradual improvement in oxygen requirement. Retesting for flu on day of DC, negative. Recommend completing antibiotic course orally. Supplemental oxygen as needed for goal saturation greater 90%. Recommend continuing inhalers/breathing treatments. Would benefit from evaluation for CPAP at night, concern for sleep apnea. No CPAP or BiPAP during admission. class 1 obesity ?nutritional education, calorie appropriate diet, complicates all aspects of care Bipolar disorder -Present on admission. Continued home medications for mood. No side effects, tolerating well Seizure disorder -Present on admission, no seizures during admission. Continued home regimen of phenobarbital. Hypokalemia -Developed day before discharge. Repeat labs on day of DC with improvement to 3.2. Recommend continuing PO supplementation daily for the next week and re-evaluating with CMP in 1 week. phenobarbital and clonazapam sent to [facility] in [place] with eScripts prior to DC. Exam Data for Last 24 hours Vital signs and Labs for Last 24 Hours: Temp Pulse Resp BP Pulse Ox FiO2 96 F L 84 16 158/92 H 94 L 50 04/24/22 04:00 04/24/22 06:15 04/24/22 04:00 04/24/22 05:13 04/24/22 06:15 04/21/22 14:30 I & O for Last 24 hours: Intake & Output 04/21/22 04/22/22 04/23/22 04/24/22 23:59 23:59 23:59 23:59 Intake Total 2047 / 2047 826 / 826 1419 / 1419 Output Total 900 / 900 0 / 0 150 / 150 Balance 1147 / 1147 826 / 826 1269 / 1269 Weight 81.845 kg 82 kg 80.91 kg 81.964 kg Microbiology Reports for the Last 24 Hours: Microbiology 04/21/22 09:15 Blood Blood Culture - Preliminary NO GROWTH AFTER 48 HOURS 04/21/22 09:15 Blood Blood Culture - Preliminary NO GROWTH AFTER 48 HOURS 04/21/22 18:14 Sputum - Expectorated Sputum Gram Stain - Final 04/21/22 18:14 Sputum - Expectorated Sputum Sputum Culture - Preliminary Constitutional Constitutional: no acute distress, obese, chronically ill appearing and cooperative *Routine HEENT Exam Head: Present normocephalic Eye: Present EOMI ENT: Present mucous membranes moist Comments: blind *Routine Neck Exam Neck: Present supple; Absent lymphadenopathy *Routine Respiratory Exam Respiratory: Present normal respiratory effort and symmetric chest movement; Absent respiratory distress, rhonchi or wheezes *Routine Cardiovascular Exam Cardiovascul
[2022-04-24 08:28] LABS: Coronavirus 19, PCR Not Detected (NotDetected); Influenza A, PCR Not Detected (NotDetected); Influenza B, PCR Not Detected (NotDetected)
[2022-04-24 11:40] LABS: Anion Gap 12.2 mEq/L (5-15); Blood Urea Nitrogen 4 mg/dl (9-20); Calcium 8.7 mg/dl (8.4-10.2); Carbon Dioxide 32 mmol/L (22.0-30.0); Chloride 101 mmol/L (98-107); Creatinine Clearance Estimated 137 mL/min (50-200); Estimated Glomerular Filt Rate 117 ml/min (>60); GFR (African American) 141 ML/MIN (>60); Glucose 99 mg/dl (74-100); Potassium 3.2 mmoL/L (3.5-5.1); Sodium 142 mmol/L (136-145)
--- NOTE | 2022-04-24 12:20 | EXP.PHA.PN ---
Subjective *Date: 04/24/22 *Time: 12:20 Medical Exam Vital signs and Labs for Last 24 Hours: Vital Signs Temp Pulse Pulse Resp BP Pulse Ox 04/24/22 11:49 81 04/24/22 11:49 84 04/24/22 11:49 92 L 04/24/22 08:00 74 04/24/22 08:00 98.8 F 81 16 138/78 96 04/24/22 04:00 80 04/24/22 06:15 84 04/24/22 06:15 88 04/24/22 06:15 94 L 04/24/22 05:13 158/92 H 04/24/22 04:00 96 F L 74 16 165/98 H 96 04/23/22 20:00 70 04/24/22 00:00 70 04/24/22 00:46 74 04/24/22 00:46 74 04/24/22 00:00 97.8 F 81 17 140/91 H 97 04/23/22 20:00 97.9 F 69 16 163/97 H 98 04/23/22 18:50 66 04/23/22 18:50 65 04/23/22 18:50 98 04/23/22 16:00 75 04/23/22 16:00 98.1 F 84 16 161/90 H 98 04/23/22 13:10 95 Intake and Output 04/23/22 04/24/22 04/24/22 23:59 07:59 15:59 Intake Total 120 / 826 1419 / 1419 Output Total 0 / 0 150 / 150 Balance 120 / 826 1269 / 1269 Intake: Intake, Oral Amount 120 / 280 Intake, Total IV Amount 1419 / 1419 0.9 % Sodium Chloride 1,000 ml 1419 / 1419 @ 100 mls/hr IV .Q10H [facility] Rx#: [id number] Output: Output, Urine Amount 0 / 0 150 / 150 Other: Number of Unmeasured Voids 1 2 Weight 81.964 kg Patient Weight 04/24/22 23:59 Weight 81.964 kg Laboratory Results - last 24 hr 04/24/22 08:12: SARS-CoV-2 (PCR) Not detected, Influenza A Untype (PCR) Not detected, Influenza Type B (PCR) Not detected 04/24/22 11:05: Sodium 142, Potassium 3.2 L, Chloride 101, Carbon Dioxide 32 H, Anion Gap 12.2, BUN 4 L, Creatinine 0.70 D, Estimated Creat Clear 137, Estimated GFR 117, Est GFR ( Amer) 141 D, Glucose 99, Calcium 8.7 I & O for Labs for Last 24 Hours: Intake & Output 04/21/22 04/22/22 04/23/22 04/24/22 23:59 23:59 23:59 23:59 Intake Total 2047 / 2047 826 / 826 1419 / 1419 Output Total 900 / 900 0 / 0 150 / 150 Balance 1147 / 1147 826 / 826 1269 / 1269 Weight 81.845 kg 82 kg 80.91 kg 81.964 kg Microbiology Reports for the Last 24 Hours: Microbiology 04/21/22 18:14 Sputum - Expectorated Sputum Gram Stain - Final 04/21/22 18:14 Sputum - Expectorated Sputum Sputum Culture - Preliminary Gram Positive Cocci 04/21/22 09:15 Blood Blood Culture - Preliminary NO GROWTH AFTER 48 HOURS 04/21/22 09:15 Blood Blood Culture - Preliminary NO GROWTH AFTER 48 HOURS The patient's infection will respond to the chosen ABx?: Yes Is the patient receiving the right drug, dose, and route?: Yes Could a more targeted ABx be ordered?: No
--- NOTE | 2022-04-24 12:21 | PC.NURSE ---
Called report to turner Brown at [facility]
--- NOTE | 2022-04-25 13:25 | CARE MANAGER ---
Spoke with nurseAbigail at [facility] patient is dong well and has no issues at this time.
== END 2022-04-24 13:03 | DRG 193 ==
LOC: ER 12:10 → 2ND 23:22
PROVIDERS: Admitting Provider Family Medicine; Emergency Provider Emergency Medicine; Visit Provider Internal Medicine Adolescent Medicine
DX: J10.1 Influenza due to other identified influenza virus with other respiratory manifestations (principal); J96.01 Acute respiratory failure with hypoxia; J18.9 Pneumonia, unspecified organism; F31.9 Bipolar disorder, unspecified; G40.909 Epilepsy, unspecified, not intractable, without status epilepticus; F17.210 Nicotine dependence, cigarettes, uncomplicated; F03.90 Unspecified dementia, unspecified severity, without behavioral disturbance, psychotic disturbance, mood disturbance, and anxiety; E66.9 Obesity, unspecified; Z68.30 Body mass index [BMI] 30.0-30.9, adult
CPT/HCPCS: 36415; 51702; 71045; 80048; 80053; 81001; 82803; 82962; 83605; 83690; 83735; 84145; 84484; 85025; 85378; 87040; 87070; 87077; 87186; 87205; 87507; 92610; 93005; 94640; 94660; 94761; 97110; 97162; 97166; 97530; 99285; C9803; J0456; J0696; J2405; U0003; U0005

== ENCOUNTER 2022-05-26 17:33 | Emergency (ER) | payer MEDICAID, SELFPAY ==
[2022-05-26] VITALS (7 sets, daily range): BP systolic 106–122; BP diastolic 65–70; PULSE 67–100; RESP 13–22; TEMP 36.6–36.9; O2SAT 95–100; BMI 30.4
--- NOTE | 2022-05-26 17:37 | CT_ITS ---
PROCEDURE INFORMATION: Exam: CT Head Without Contrast Exam date and time: 05/26/2022 5:43 PM Age: 57 years old Clinical indication: Stroke-like symptoms; Altered mental status/memory loss and syncope/collapse; Additional info: AMS, possible seizure TECHNIQUE: Imaging protocol: Computed tomography of the head without contrast. Radiation optimization: All CT scans at this facility use at least one of these dose optimization techniques: automated exposure control; mA and/or kV adjustment per patient size (includes targeted exams where dose is matched to clinical indication); or iterative reconstruction. Other technique: STROKE PROTOCOL was implemented. COMPARISON: CT HEAD/BRAIN WO CON 10/27/2021 1:03 PM FINDINGS: Brain: There is focal low density medial left cerebellar hemisphere which was not present on the prior study and may be due to acute or subacute infarction. Low density in the temporoparietal white matter bilaterally appears to be a chronic finding. No definite acute intracranial hemorrhage. No obvious mass. Cerebral ventricles: The ventricles appear mildly enlarged, but not out of proportion to the degree of parenchymal volume loss. Paranasal sinuses: No air-fluid levels in the paranasal sinuses. Mastoid air cells: No mastoid effusions. Bones/joints: Unremarkable. No acute fracture. Soft tissues: Unremarkable. IMPRESSION: Limited examination. There may be an acute or subacute infarction left cerebellar hemisphere however this is not confirmed on the coronal images. ASSESSMENT: ASPECTS ([place] Stroke Program Early CT Score) is 10.
--- NOTE | 2022-05-26 17:37 | PC.NURSE ---
PT TO CT AT THIS TIME
--- NOTE | 2022-05-26 17:39 | PC.NURSE ---
to ct via stretcher
--- NOTE | 2022-05-26 17:39 | PC.NURSE ---
pt gone to rad
--- NOTE | 2022-05-26 17:40 | PC.NURSE ---
PT GONE TO CT
--- NOTE | 2022-05-26 17:47 | PC.NURSE ---
PT RETURNED FROM CT
--- NOTE | 2022-05-26 17:48 | PC.NURSE ---
pt back from rad
--- NOTE | 2022-05-26 17:49 | PC.NURSE ---
pt return from CT
[2022-05-26 17:56] LABS: Basophils # 0.1 K/mm3 (0-0.2); Basophils % 1.3 % (0.1-2.0); Eosinophils # 0.1 K/mm3 (0.0-0.4); Eosinophils % 2.1 % (0.1-12.0); Hematocrit 44.8 % (42.0-52.0); Hemoglobin 14.4 g/dL (14.1-18.0); Lymphocytes # 1.2 K/mm3 (0.7-4.5); Lymphocytes % 24.3 % (10-50); Mean Corpuscular Hemoglobin 30.2 pg (27.0-31.2); Mean Corpuscular Volume 94.2 fl (80-94); Mean Platelet Volume 8.3 fl (7.4-10.4); Monocytes # 0.4 K/mm3 (0.1-1.0); Monocytes % 7.7 % (1.7-9.3); Neutrophils # 3.1 K/mm3 (1.8-7.8); Neutrophils % 64.6 % (37.0-80.0); Platelet Count 273 K/mm3 (142-424); Red Blood Count 4.76 M/mm3 (4.60-6.20); Red Cell Distribution Width 13.7 % (11.5-17.5); White Blood Count 4.8 K/mm3 (4.8-10.8)
--- NOTE | 2022-05-26 18:01 | PC.NURSE ---
DR NERI SPEAKING WITH [employer]
[2022-05-26 18:07] LABS: Anion Gap 24.5 mEq/L (5-15); Blood Urea Nitrogen 24 mg/dl (9-20); Calcium 9.6 mg/dl (8.4-10.2); Carbon Dioxide 16 mmol/L (22.0-30.0); Chloride 103 mmol/L (98-107); Creatinine Clearance Estimated 62 mL/min (50-200); Estimated Glomerular Filt Rate 42 ml/min (>60); GFR (African American) 51 ML/MIN (>60); Glucose 132 mg/dl (74-100); Potassium 4.5 mmoL/L (3.5-5.1); Sodium 139 mmol/L (136-145)
[2022-05-26 18:07] LABS: Microscopic, Urine URINE MICROSCOPIC (MICROSCOPIC)
[2022-05-26 18:09] LABS: Appearance,Urine CLEAR (Clear); Blood, Urine Negative (Negative); Color,Urine YELLOW (Yellow); Glucose,Urine (UA) Negative (Negative); Ketones,Urine 1+ (Negative); Leukocyte Esterase,Urine Negative (Negative); Nitrate,Urine Negative (Negative); Protein,Urine TRACE (Negative); Urobilinogen,Urine 0.2 EU/dl (0.2)
--- NOTE | 2022-05-26 18:10 | HMH.EDGENADL ---
Discharge Plan Disposition Patient Disposition: Still a Patient Condition: Good Prescriptions Prescriptions: No Action diltiazem HCl 180 MG capsule,extended release 24hr 180 mg PO DAILY phenytoin sodium extended 100 MG capsule 100 mg PO TID citalopram 20 MG tablet 20 mg PO DAILY mirtazapine 15 MG tablet 15 mg PO HS metoclopramide HCl 10 MG tablet 10 mg PO TID acetaminophen 325 mg Tablet 650 mg PO Q4HP PRN (Reason: Fever) loperamide 2 mg capsule 2 mg PO Q6HP PRN (Reason: Diarrhea) hydroxyzine pamoate 50 mg Capsule 50 mg PO BIDP PRN (Reason: Anxiety) risperidone 3 mg tablet 3 mg PO BID benztropine 1 mg tablet 1 mg PO DAILY aripiprazole 30 mg Tablet 30 mg PO DAILY clonazepam 0.5 mg Tablet 0.25 mg PO TID 30 Days Qty: 45 0RF magnesium oxide 400 mg (241.3 mg magnesium) Tablet 400 mg PO BID Qty: 0 0RF phenobarbital 32.4 mg tablet 32.4 mg PO BID 30 Days Qty: 60 0RF cefdinir 300 mg capsule 300 mg PO BID 3 Days Qty: 6 0RF Rx Instructions: first dose 04/25/22 potassium chloride 20 mEq Tablet,Er Particles/Crystals 20 meq PO DAILY 30 Days Qty: 0 0RF phenobarbital 32.4 mg Tablet 32.4 mg PO BID 30 Days Qty: 60 0RF clonazepam 0.25 mg tablet,disintegrating 0.25 mg PO TID 30 Days Qty: 90 0RF pantoprazole 20 MG tablet,delayed release (DR/EC) 20 mg PO DAILY albuterol sulfate 1.25 MG/3 ML solution for nebulization 1.25 mg INHALATION QID Referrals Follow up/Referrals: Woodrow Perez MD [Primary Care Provider] - See instructions Activity Restrictions/Add. Instructions Additional Instructions/Restrictions: Drink plenty of fluids. Follow-up with Dr. Perez, call tomorrow to arrange further care. Additional instructions for SEIZURE OR LOSS OF CONSCIOUSNESS/POSSIBLE SEIZURE: NO DRIVING, BIKE RIDING, SWIMMING, TUB BATHING, LADDERS UNTIL CLEARED BY DOCTOR. NO ALCOHOL OR STREET DRUGS. GET 8 HOURS OF SLEEP PER NIGHT. RETURN IF SEIZURE RECURS. Clinical Impressions Clinical Impression: Seizure disorder, Subtherapeutic serum dilantin level, ELLEN (acute kidney injury), Seizure Instructions Patient Instructions: DI for Seizure Disorder -- Adult Discharge ED Provider: Porfirio Starks General Adult HPI General Chief complaint: Seizure Stated complaint: seizure Time Seen by Provider: 05/26/22 18:13 Mode of Arrival: EMS Source of Information: EMS Limitations: Altered Mental Status Description of Symptoms (Recalled from ER Triage Doc. by RN): PT BROUGHT IN VIA EMS FOR SEIZURE LASTING ABOUT 5 MINUTES. PT ARRIVES NON-VERBAL, DOES NOT FOLLOW COMMANDS. POSTICTAL. RIGHT SIDED FACIAL DROOP. History of Present Illness HPI narrative: The patient is brought in by EMS from [facility]. He has a seizure disorder and reportedly had a seizure lasting about 5 minutes. The patient does not recall the episode. He denies any current complaint, denies any pain. Limited history is available from the patient. Related Data Home Medications Medication Instructions Recorded Confirmed citalopram 20 mg tablet 20 mg PO DAILY Depression 06/30/17 04/21/22 diltiazem HCl 180 mg 180 mg PO DAILY HEART RATE 06/30/17 04/21/22 capsule,extended release 24 hr metoclopramide HCl 10 mg tablet 10 mg PO TID stomach 06/30/17 04/21/22 mirtazapine 15 mg tablet 15 mg PO HS MOOD 06/30/17 04/21/22 phenytoin sodium extended 100 mg 100 mg PO TID seizures 06/30/17 04/21/22 capsule pantoprazole 20 mg tablet,delayed 20 mg PO DAILY GERD 05/04/20 04/21/22 release albuterol sulfate 1.25 mg/3 mL 1.25 mg inhalation QID Breathing 04/10/21 04/21/22 solution for nebulization problems acetaminophen 325 mg tablet 650 mg PO Q4HP PRN Fever 04/21/22 04/21/22 hydroxyzine pamoate 50 mg capsule 50 mg PO BIDP PRN Anxiety 04/21/22 04/22/22 loperamide 2 mg capsule 2 mg PO Q6HP PRN Diarrhea 04/21/22 04/21/22 aripiprazole 30 mg tablet 30 mg PO RAMANA
[2022-05-26 18:13] LABS: INR 1.07 (0.9-1.1); Prothrombin Time 11.5 seconds (10.1-12.5)
[2022-05-26 18:16] LABS: Bilirubin,Urine Negative (Negative)
[2022-05-26 18:18] LABS: Amorphous Sediment,Urine Trace /lpf
--- NOTE | 2022-05-26 18:21 | CT_ITS ---
PROCEDURE INFORMATION: Exam: CT Head Without Contrast Exam date and time: 05/26/2022 6:35 PM Age: 57 years old Clinical indication: Stroke-like symptoms; Altered mental status/memory loss; Additional info: Seizure TECHNIQUE: Imaging protocol: Computed tomography of the head without contrast. Radiation optimization: All CT scans at this facility use at least one of these dose optimization techniques: automated exposure control; mA and/or kV adjustment per patient size (includes targeted exams where dose is matched to clinical indication); or iterative reconstruction. Other technique: STROKE PROTOCOL was implemented. COMPARISON: CT HEAD/BRAIN WO CON 05/26/2022 5:43 PM FINDINGS: Brain: There is no acute cortical infarction, intracranial hemorrhage or mass.There is moderate diffuse heterogeneity of the white matter, most consistent with microangiopathy although other etiologies are not excluded.. Cerebral ventricles: No significant ventriculomegaly. Paranasal sinuses: No air-fluid levels in the paranasal sinuses. Mastoid air cells: No mastoid effusions. Bones/joints: Unremarkable. No acute fracture. Soft tissues: Unremarkable. IMPRESSION: No acute cerebral infarction or intracranial hemorrhage. Left cerebellar hemisphere is unremarkable. ASSESSMENT: ASPECTS ([place] Stroke Program Early CT Score) is 10.
--- NOTE | 2022-05-26 18:22 | PC.NURSE ---
per ER notified rad staff pt will need repeat head CT r/t initial study is poor quality
--- NOTE | 2022-05-26 18:29 | PC.NURSE ---
pt back to CT via stretcher
[2022-05-26 18:43] LABS: Phenytoin (Dilantin) 7.1 ug/ml (10-20)
--- NOTE | 2022-05-26 20:25 | PC.NURSE ---
Called [facility] to have them send a ride up for pt
== END 2022-05-26 20:42 | disposition home or self-care (01) ==
PROVIDERS: Emergency Provider Emergency Medicine; PCP Emergency Medicine
DX: G40.909 Epilepsy, unspecified, not intractable, without status epilepticus (principal); N17.9 Acute kidney failure, unspecified; F31.9 Bipolar disorder, unspecified; F17.210 Nicotine dependence, cigarettes, uncomplicated
CPT/HCPCS: 70450; 80048; 80184; 80185; 81001; 85025; 85610; 96361; 96374; 96375; 99285

== ENCOUNTER → 2023-04-15 09:43 | Outpatient (CLI) | payer MEDICAID, SELFPAY ==
--- NOTE | 2023-04-15 09:43 | CT_ITS ---
FINAL REPORT TECHNIQUE: Axial CT images of the abdomen and pelvis were obtained before and after the administration of IV contrast. This study was performed with techniques to keep radiation doses as low as reasonably achievable (ALARA). Individualized dose reduction techniques using automated exposure control or adjustment of mA and/or kV according to the patient's size were employed. CLINICAL HISTORY: abdominal pain COMPARISON: 05/04/2020 FINDINGS: Abdomen: The heart is normal in size. Again seen is a cystic and solid mass anterior to the right inferior pulmonary vein in the chest. This measures 32 x 18 mm in size, and given differences in technique is not significantly changed since the prior exam. Multiple pulmonary calcifications are identified in this region. There is a left hepatic lobe cyst, less than 1 cm in size, which is stable. The spleen is unremarkable. No adrenal masses present. The pancreas has an unremarkable appearance. The kidneys enhance normally. The aorta is normal in caliber. There is no free fluid or adenopathy. No mass or abnormal fluid collection is seen. Precontrast images demonstrate no evidence of nephrolithiasis. Pelvis: The appendix is not well visualized. The urinary bladder is unremarkable. There is persistent mild wall thickening of the rectosigmoid colon. Small bilateral inguinal hernias containing fat are present. There is no evidence of mass or adenopathy. There is no evidence of bowel obstruction. IMPRESSION: Persistent mild wall thickening in the colon. This is of uncertain etiology, and may represent inflammatory bowel syndrome or other colitis. Left hepatic lobe subcentimeter low-density mass again identified, stable and likely a hepatic cyst. In the lower lung marcano there is again seen a cystic and solid mass anterior to the right inferior pulmonary vein, stable in size when compared to the prior CT of 2019. This is of uncertain etiology, and may represent adenoma or other mass or neoplasm. Reviewed, Interpreted and Dictated by Patrick Dejesus III, MD Transcribed by Amalia Muniz Authenticated and . [facility]
== END ==
PROVIDERS: PCP Internal Medicine; Visit Provider Emergency Medicine
DX: R10.9 Unspecified abdominal pain (principal)
CPT/HCPCS: 74178; Q9967

== ENCOUNTER 2023-05-07 16:54 | Emergency (ER) | payer MEDICAID, SELFPAY ==
[2023-05-07 16:55] VITALS: BP 158/93; PULSE 69; RESP 18; TEMP 36.8; O2SAT 96; BMI 32.1
[2023-05-07 17:33] LABS: Microscopic, Urine URINE MICROSCOPIC (MICROSCOPIC)
[2023-05-07 17:55] LABS: Appearance,Urine CLEAR (Clear); Bilirubin,Urine Negative (Negative); Blood, Urine Negative (Negative); Color,Urine YELLOW (Yellow); Glucose,Urine (UA) Negative (Negative); Ketones,Urine Negative (Negative); Leukocyte Esterase,Urine Negative (Negative); Nitrate,Urine Negative (Negative); Protein,Urine Negative (Negative); Specific Gravity, Urine >= 1.030 (1.005-1.030); Urobilinogen,Urine 0.2 EU/dl (0.2)
[2023-05-07 18:11] LABS: Squamous Epithelial Cell,Urine Occasional #/hpf (0-5)
--- NOTE | 2023-05-07 18:23 | HMH.EDGENADL ---
Discharge Plan Disposition Patient Disposition: Home, Self-Care Prescriptions Prescriptions: No Action aripiprazole 30 mg tablet 30 mg PO DAILY Qty: 30 0RF benztropine 1 mg tablet 1 mg PO DAILY Qty: 30 0RF citalopram 20 mg tablet 20 mg PO DAILY Qty: 30 0RF diltiazem HCl 180 mg capsule,extended release 24hr 180 mg PO DAILY Qty: 30 0RF loratadine 10 mg tablet 5 mg PO DAILY Qty: 15 0RF pantoprazole 20 mg tablet,delayed release (DR/EC) 20 mg PO DAILY Qty: 30 0RF donepezil [Aricept] 5 mg tablet 5 mg PO DAILY Qty: 30 0RF mirtazapine 15 mg tablet 15 mg PO HS Qty: 30 0RF risperidone 3 mg tablet 3 mg PO BID Qty: 60 0RF metoclopramide HCl 10 mg tablet 10 mg PO TID Qty: 90 0RF phenytoin sodium extended 100 mg capsule 100 mg PO TID Qty: 90 0RF albuterol sulfate 1.25 mg/3 mL solution for nebulization 1.25 mg INHALATION QID Qty: 90 0RF hydroxyzine pamoate 50 mg capsule 50 mg PO BIDP PRN (Reason: Anxiety) Qty: 60 0RF ondansetron HCl 4 mg tablet 4 mg PO Q8H PRN (Reason: nausea and vomiting) Qty: 30 0RF loperamide 2 mg capsule 2 mg PO Q6H PRN (Reason: Diarrhea) Qty: 120 0RF acetaminophen 325 mg tablet 650 mg PO Q4HP PRN (Reason: Fever) Qty: 60 0RF clonazepam 1 mg tablet 1 mg PO BID 30 Days Qty: 60 0RF phenobarbital 32.4 mg tablet 32.4 mg PO BID 30 Days Qty: 60 5RF clonazepam 0.5 mg tablet 0.5 mg PO TID Qty: 90 2RF magnesium oxide 400 mg (241.3 mg magnesium) Tablet 400 mg PO BID Qty: 0 0RF cefdinir 300 mg capsule 300 mg PO BID 3 Days Qty: 6 0RF Rx Instructions: first dose 04/25/22 Referrals Follow up/Referrals: Henry Gilliland DO [Primary Care Provider] - See instructions Activity Restrictions/Add. Instructions Additional Instructions/Restrictions: No obvious medical emergency going on with this patient today appears to be at his baseline according to multiple workers and emergency department who have seen him several times. No focal complaints from historical standpoint he has a normal physical exam and appears to be at his baseline please send the patient back to the emergency department or any other focal or very specific concerns. Clinical Impressions Clinical Impression: Encounter for medical screening examination Instructions Patient Instructions: DI for Altered Mental Status Discharge ED Provider: Sherrill Goldman General Adult HPI General Chief complaint: Altered Mental Status Stated complaint: ams Time Seen by Provider: 05/07/23 18:19 Mode of Arrival: EMS Source of Information: EMS Limitations: No Limitations Description of Symptoms (Recalled from ER Triage Doc. by RN): EMS called to [facility] for reports that patient has altered mental status and is just not acting himself. Patient alert to self upon arrival to ER EMS states patient reported he used heroin and was given 1mg narcan. Patient has history of seizures but staff at [facility] report they have not seen any seizure like activity. History of Present Illness HPI narrative: Patient is a [facility] resident who is sent to the emergency department for concerns that he is acting abnormally. He would not have any specific concerns regarding that and the patient does not have any complaints. Several people who work in our emergency department note this patient states that he is at his baseline but patient very poor historian at baseline. However he denies any complaints. Related Data Previous Rx's Medication Instructions Recorded cefdinir 300 mg capsule 300 mg PO BID 3 days #6 caps 04/24/22 magnesium oxide 400 mg (241.3 mg 400 mg PO BID #0 tabs 04/24/22 magnesium) tablet acetaminophen 325 mg tablet 650 mg PO Q4HP PRN Fever #60 tabs 08/08/22 albuterol sulfate 1.25 mg/3 mL 1.25 mg (3 mL) inhalation QID 08/08/22 solution for nebulization Breathing problems #90 mL aripiprazole 30 mg tablet 30 mg PO DAILY MOOD #30 tabs 08/08/22 benztropine 1 mg tablet 1 mg PO DAILY MOOD #30 tabs 08/08/22 citalopram 20 mg tablet 20 mg PO DAILY Depression #30 tabs 08/08/22 diltiazem HCl 180 mg 180 mg PO DAILY HEART RATE #30 caps 08/08/22 capsule,extended release 24 hr donepezil 5 mg tablet (Aricept) 5 mg PO DAILY #30 tabs 08/08/22 hydroxyzine pamoate 50 mg capsule 50 mg PO BIDP PRN Anxiety #60 caps 08/08/22 loperamide 2 mg capsule 2 mg PO Q6H PRN Diarrhea #120 caps 08/08/22 loratadine 10 mg tablet 5 mg PO DAILY #15 tabs 08/08/22 metoclopramide HCl 10 mg tablet 10 mg PO TID stomach #90 tabs 08/08/22 mirtazapine 15 mg tablet 15 mg PO HS MOOD #30 tabs 08/08/22 ondansetron HCl 4 mg tablet 4 mg PO Q8H PRN nausea and 08/08/22 vomiting #30 tabs pantoprazole 20 mg tablet,delayed 20 mg PO DAILY GERD #30 tabs 08/08/22 release phenytoin sodium extended 100 mg 100 mg PO TID seizures #90 caps 08/08/22 capsule risperidone 3 mg tablet 3 mg PO BID MOOD #60 tabs 08/08/22 clonazepam 1 mg tablet 1 mg PO BID 30 days #60 tabs 11/04/22 phenobarbital 32.4 mg tablet 32.4 mg PO BID seizures 30 days 03/04/23 #60 tabs clonazepam 0.5 mg tablet 0.5 mg PO TID #90 tabs 03/06/23 Allergies Allergy/AdvReac Type Severity Reaction Status Date / Time No Known Allergies Allergy Verified 04/27/21 10:42 [facility] Disclaimer: The information contained in this section may have been updated after the patient was seen, as this information can be updated by other users. Medical History (Updated 05/07/23 @ 18:23 by Sherrill Goldman MD) Bipolar disorder BMI 37.0-37.9, adult Legally blind Seizure disorder Surgical History (Updated 04/21/22 @ 14:08 by Keron Arroyo MD) H/O colonoscopy S/P bronchoscopy with biopsy Family History (Updated 04/21/22 @ 14:08 by Keron Arroyo MD) Mother No problems noted. Father No problems noted. Social History Smoking Status: Never smoker second hand exposure: No alcohol intake: never substance use type: marijuana current occupational status: disabled Travel in the last 8 weeks: None household members: other housing: assisted living facility current occupational exposures/hazards: No caffeine: Yes ROS Obtained: Yes All systems reviewed & no additional complaints except as documented Physical Exam General General appearance: alert and in no apparent distress Head Head exam: atraumatic and normocephalic ENT ENT exam: Present normal exam, normal oropharynx, mucous membranes moist, mucous membranes dry and TM's normal bilaterally Neck Neck exam: Present normal inspection and full ROM; Absent meningismus Chest Chest inspection: Present normal inspection and symmetric chest wall rise Respiratory Respiratory exam: Present normal lung sounds bilaterally; Absent respiratory distress, wheezes or stridor Cardiovascular Cardiovascular exam: Present regular rate and normal rhythm Abdominal Exam Abdominal exam: Present soft and distention Neurological Exam Neurological exam: Present alert (Answer questions appropriately seems to be at his baseline nonfocal neurologic exam) and normal gait; Absent motor sensory deficit Medical Decision Making Mamadou Inquiry Pt receiving controlled substance: No Vital Signs: 05/07/23 16:55 Temperature 98.2 F Temperature Source Oral Pulse Rate [Right] 69 Respiratory Rate 18 Blood Pressure [Right Arm] 158/93 H Blood Pressure Mean [Right Arm] 114 Blood Pressure Source [Right Arm] Automatic Cuff 02 Sat by Pulse Oximetry 96 Oxygen Delivery Method Room Air Lab Data Lab results reviewed: Yes I reviewed the patient's lab results. Lab Results 05/07/23 17:06: Urine Color Yellow, Urine Appearance Clear, Urine pH 6.0, Ur Specific Purcell >= 1.030, Urine Protein Negative, Urine Glucose (UA) Negative, Urine Ketones Negative, Urine Blood Negative, Urine Nitrate Negative, Urine Bilirubin Negative, Urine Urobilinogen 0.2, Ur Leukocyte Esterase Negative, Urine RBC None, Urine WBC None, Ur Squamous Epith Cells Occasional, Urine Bacteria None Orders (Tests/Meds): ORDERS Category Date Time Status UA [Urinalysis and Microscopic] Stat Lab 05/07/23 17:06 Completed Medical Decision Narrative: Patient is a 58-year-old chronically slowed from a cognitive standpoint but appears to be at his baseline according to multiple members of the staff the emergency department who seen him several times. Sitting on was unable to provide any specific concerns other than that he was not acting like himself. The patient has a nonfocal physical exam from head to toe no obvious abnormalities from an emergency standpoint does not appear to be in any pain distress he is moving all extremities appropriately. From medical screening standpoint no obvious emergent medical condition was identified and no indication for any nonspecific labs imaging etc. Patient was discharged back to [facility]. Critical Care Critical Care Time Critical Care Time: No
--- NOTE | 2023-05-07 18:24 | PC.NURSE ---
LUANN STEVENSON NOT ANSWERING THE PHONE, SPOKE WITH NATASHA THEY WERE GONNA LET THEM KNOW
--- NOTE | 2023-05-07 18:46 | PC.NURSE ---
attempted to call matthew no answer
--- NOTE | 2023-05-07 18:47 | PC.NURSE ---
spoke with a worker at [facility], she said she would send someone to get pt.
[2023-05-07 20:05] VITALS: BP 128/91; PULSE 71; RESP 18; TEMP 37; O2SAT 97
[2023-05-07 20:06] VITALS: BP 151/87; PULSE 67; RESP 18; TEMP 36.8; O2SAT 96
== END 2023-05-07 20:07 | disposition home or self-care (01) ==
PROVIDERS: Emergency Provider Student in an Organized Health Care Education/Training Program; PCP Internal Medicine
DX: R41.82 Altered mental status, unspecified (principal); G40.909 Epilepsy, unspecified, not intractable, without status epilepticus
CPT/HCPCS: 81001; 99283

== ENCOUNTER 2023-07-08 17:47 | Emergency (ER) | payer MEDICAID, SELFPAY ==
[2023-07-08] VITALS (7 sets, daily range): BP systolic 131–161; BP diastolic 90–99; PULSE 76–86; RESP 13–18; TEMP 36.7–37; O2SAT 95–99; BMI 28.3
--- NOTE | 2023-07-08 18:10 | ED_ITS ---
Discharge Plan Disposition Patient Disposition: Home, Self-Care Condition: Good Prescriptions Prescriptions: No Action aripiprazole 30 mg tablet 30 mg PO DAILY Qty: 30 0RF benztropine 1 mg tablet 1 mg PO DAILY Qty: 30 0RF citalopram 20 mg tablet 20 mg PO DAILY Qty: 30 0RF diltiazem HCl 180 mg capsule,extended release 24hr 180 mg PO DAILY Qty: 30 0RF loratadine 10 mg tablet 5 mg PO DAILY Qty: 15 0RF pantoprazole 20 mg tablet,delayed release (DR/EC) 20 mg PO DAILY Qty: 30 0RF donepezil [Aricept] 5 mg tablet 5 mg PO DAILY Qty: 30 0RF mirtazapine 15 mg tablet 15 mg PO HS Qty: 30 0RF risperidone 3 mg tablet 3 mg PO BID Qty: 60 0RF metoclopramide HCl 10 mg tablet 10 mg PO TID Qty: 90 0RF phenytoin sodium extended 100 mg capsule 100 mg PO TID Qty: 90 0RF albuterol sulfate 1.25 mg/3 mL solution for nebulization 1.25 mg INHALATION QID Qty: 90 0RF hydroxyzine pamoate 50 mg capsule 50 mg PO BIDP PRN (Reason: Anxiety) Qty: 60 0RF ondansetron HCl 4 mg tablet 4 mg PO Q8H PRN (Reason: nausea and vomiting) Qty: 30 0RF loperamide 2 mg capsule 2 mg PO Q6H PRN (Reason: Diarrhea) Qty: 120 0RF acetaminophen 325 mg tablet 650 mg PO Q4HP PRN (Reason: Fever) Qty: 60 0RF clonazepam 1 mg tablet 1 mg PO BID 30 Days Qty: 60 0RF phenobarbital 32.4 mg tablet 32.4 mg PO BID 30 Days Qty: 60 5RF clonazepam 0.5 mg tablet 0.5 mg PO TID Qty: 90 2RF magnesium oxide 400 mg (241.3 mg magnesium) Tablet 400 mg PO BID Qty: 0 0RF cefdinir 300 mg capsule 300 mg PO BID 3 Days Qty: 6 0RF Rx Instructions: first dose 04/25/22 Referrals Follow up/Referrals: Provider,Referral, MD [Primary Care Provider] - See instructions Activity Restrictions/Add. Instructions Additional Instructions/Restrictions: Please follow-up with PCP or return to ER for any new symptoms. Clinical Impressions Clinical Impression: Transient alteration of awareness Instructions Patient Instructions: DI for Altered Mental Status Discharge ED Provider: Judi Castaneda General Adult HPI <AGAPITO Dolan - Last Filed: 07/08/23 21:22> General Chief complaint: Altered Mental Status Stated complaint: AMS Time Seen by Provider: 07/08/23 17:53 Mode of Arrival: EMS Source of Information: Patient and EMS Limitations: No Limitations Description of Symptoms (Recalled from ER Triage Doc. by RN): patient to ED via [facility]. Pt is a resident at [facility]. Staff called with concerns of patient mental status, and states the he not acting normal and not talkative like he usually is. Other resident present at time of EMS and reports that patient has not been administered medications in past two days. Patient is alert to self at present, TRN unable to obtain information on patient baseline History of Present Illness HPI narrative: Patient brought in via EMS for initially a chief complaint of altered mental status. Patient is in assisted living facility. Patient has a history of seizure disorder, bipolar disorder, is legally blind. Patient at baseline is ambulatory and conversant. On arrival however patient is slightly lethargic however does answer questions but very slowly. Patient himself denies any com plaints. Related Data Previous Rx's Medication Instructions Recorded cefdinir 300 mg capsule 300 mg PO BID 3 days #6 caps 04/24/22 magnesium oxide 400 mg (241.3 mg 400 mg PO BID #0 tabs 04/24/22 magnesium) tablet acetaminophen 325 mg tablet 650 mg PO Q4HP PRN Fever #60 tabs 08/08/22 albuterol sulfate 1.25 mg/3 mL 1.25 mg (3 mL) inhalation QID 08/08/22 solution for nebulization Breathing problems #90 mL aripiprazole 30 mg tablet 30 mg PO DAILY MOOD #30 tabs 08/08/22 benztropine 1 mg tablet 1 mg PO DAILY MOOD #30 tabs 08/08/22 citalopram 20 mg tablet 20 mg PO DAILY Depression #30 tabs 08/08/22 diltiazem HCl 180 mg 180 mg PO DAILY HEART RATE #30 caps 08/08/22 capsule,extended release 24 hr donepezil 5 mg tablet (Aricept) 5 mg PO DAILY #30 tabs 08/08/22 hydroxyzine pamoate 50 mg capsule 50 mg PO BIDP PRN Anxiety #60 caps 08/08/22 loperamide 2 mg capsule 2 mg PO Q6H PRN Diarrhea #120 caps 08/08/22 loratadine 10 mg tablet 5 mg PO DAILY #15 tabs 08/08/22 metoclopramide HCl 10 mg tablet 10 mg PO TID stomach #90 tabs 08/08/22 mirtazapine 15 mg tablet 15 mg PO HS MOOD #30 tabs 08/08/22 ondansetron HCl 4 mg tablet 4 mg PO Q8H PRN nausea and 08/08/22 vomiting #30 tabs pantoprazole 20 mg tablet,delayed 20 mg PO DAILY GERD #30 tabs 08/08/22 release phenytoin sodium extended 100 mg 100 mg PO TID seizures #90 caps 08/08/22 capsule risperidone 3 mg tablet 3 mg PO BID MOOD #60 tabs 08/08/22 clonazepam 1 mg tablet 1 mg PO BID 30 days #60 tabs 11/04/22 phenobarbital 32.4 mg tablet 32.4 mg PO BID seizures 30 days 03/04/23 #60 tabs clonazepam 0.5 mg tablet 0.5 mg PO TID #90 tabs 03/06/23 Allergies Allergy/AdvReac Type Severity Reaction Status Date / Time No Known Allergies Allergy Verified 04/27/21 10:42 [facility] <AGAPITO Dolan - Last Filed: 07/08/23 21:22> [facility] Disclaimer: The information contained in this section may have been updated after the patient was seen, as this information can be updated by other users. Medical History (Updated 07/08/23 @ 20:12 by AGAPITO Dolan) Bipolar disorder BMI 37.0-37.9, adult Legally blind Seizure disorder Surgical History (Updated 04/21/22 @ 14:08 by Keron Arroyo MD) H/O colonoscopy S/P bronchoscopy with biopsy Family History (Updated 04/21/22 @ 14:08 by Keron Arroyo MD) Mother No problems noted. Father No problems noted. Social History Smoking Status: Never smoker second hand exposure: No alcohol intake: never substance use type: marijuana current occupational status: disabled Travel in the last 8 weeks: None household members: other housing: assisted living facility current occupational exposures/hazards: No caffeine: Yes <AGAPITO Dolan - Last Filed: 07/08/23 21:22> ROS Obtained: Yes Systems reviewed as appropriate & no additional complaints except as documented Physical Exam <AGAPITO Dolan - Last Filed: 07/08/23 21:22> General General appearance: in no apparent distress and lethargic Comment: Initial Glascow coma score is 14 although his actual baseline is unknown at this time Head Head exam: atraumatic, normocephalic, normal inspection and other (Tenderness) Eye Eye exam: Present normal appearance and EOMI ENT ENT exam: Present normal exam, normal oropharynx and other (Patient has repetitive flicking of the tongue around the mouth) Neck Neck exam: Present normal inspection, full ROM and other (No lymphadenopathy, no nuchal rigidity, no meningeal signs); Absent tenderness Chest Chest inspection: Present normal inspection and symmetric chest wall rise; Absent tenderness Respiratory Respiratory exam: Present normal lung sounds bilaterally; Absent respiratory d istress, wheezes, stridor or accessory muscle use Cardiovascular Cardiovascular exam: Present regular rate, normal rhythm and normal heart sounds Abdominal Exam Abdominal exam: Present soft and normal bowel sounds; Absent distention, tenderness, guarding, rebound or rigidity Extremities Exam Extremities exam: Present normal inspection and full ROM Neurological Exam Neurological exam: Absent alert (Somewhat sleepy and lethargic.) or oriented X3 (Patient answers to his name and gives one-word answers to questioning they do seem to be appropriate) Psychiatric Psychiatric exam: Present normal mood and flat affect Skin Skin exam: Present warm, dry, intact and normal color Medical Decision Making <AGAPITO Dolan - Last Filed: 07/08/23 21:22> Medical Records Medical records reviewed: Yes I reviewed the patient's medical records. Mamadou Inquiry Pt receiving controlled substance: No Vital Signs: 07/08/23 17:48 07/08/23 17:49 07/08/23 18:00 Temperature 98.6 F Temperature Source Oral Pulse Rate 86 81 Pulse Rate [Left] 83 Respiratory Rate 13 14 14 Blood Pressure 154/95 H 153/95 H Blood Pressure [Right Arm] 154/95 H Blood Pressure Mean [Right Arm] 114 Blood Pressure Source Blood Pressure Position Blood Pressure Position [Right Arm] Sitting 02 Sat by Pulse Oximetry 97 97 97 Oxygen Delivery Method Room Air Room Air Room Air 07/08/23 18:37 07/08/23 19:00 07/08/23 19:30 Temperature Temperature Source Pulse Rate 76 78 78 Pulse Rate [Left] Respiratory Rate 14 13 15 Blood Pressure 131/90 135/90 Blood Pressure [Right Arm] Blood Pressure Mean [Right Arm] Blood Pressure Source Blood Pressure Position Blood Pressure Position [Right Arm] 02 Sat by Pulse Oximetry 99 96 95 Oxygen Delivery Method 07/08/23 20:23 Temperature 98.1 F Temperature Source Oral Pulse Rate 83 Pulse Rate [Left] Respiratory Rate 18 Blood Pressure 161/99 H Blood Pressure [Right Arm] Blood Pressure Mean [Right Arm] Blood Pressure Source Automatic Cuff Blood Pressure Position Sitting Blood Pressure Position [Right Arm] 02 Sat by Pulse Oximetry Oxygen Delivery Method Room Air Lab Data Lab results reviewed: Yes I reviewed the patient's lab results. Lab Results 07/08/23 18:00: WBC 4.4 L, RBC 5.00, Hgb 15.6, Hct 49.0, MCV 97.9 H, MCH 31.1, MCHC 31.8, RDW 14.0, Plt Count 195, MPV 9.0, Neut % (Auto) 61.6, Lymph % (Auto) 24.3, [place] % (Auto) 12.7 H, Eos % (Auto) 1.0, Baso % (Auto) 0.3, Neut # (Auto) 2.7, Lymph # (Auto) 1.1, [place] # (Auto) 0.6, Eos # (Auto) 0.0, Baso # (Auto) 0.0, Sodium 141, Potassium 4.0, Chloride 107, Carbon Dioxide 25, Anion Gap 13.0, BUN 19, Creatinine 1.10, Estimated Creat Clear 81, Estimated GFR 69, Est GFR ( Amer) 83, Glucose 109 H, Calcium 10.1, Total Bilirubin 0.7, AST 42, ALT 67, Alkaline Phosphatase 139 H, Troponin I < 0.01, Total Protein 8.1, Albumin 4.7, Globulin 3.4 H, Albumin/Globulin Ratio 1.4, Phenytoin 20.5 H* 07/08/23 18:41: D-Dimer 0.35 07/08/23 18:48: VBG pH 7.38, VBG pCO2 41.4, VBG pO2 59.0 H, VBG HCO3 23.9, VBG Total CO2 25.2, VBG O2 Saturation 90.2 H, VBG Base Excess -1.3 07/08/23 18:55: Urine Color Yellow, Urine Appearance Clear, Urine pH 7.0, Ur Specific [place] 1.020, Urine Protein Negative, Urine Glucose (UA) Negative, Urine Ketones Trace, Urine Blood Negative, Urine Nitrate Negative, Urine Bilirubin Negative, Urine Urobilinogen 1.0, Ur Leukocyte Esterase Negative, Urine RBC None, Urine WBC Occasional, Ur Squamous Epith Cells Occasional, Urine Bacteria None, Urine Opiates Screen Negative, Urine Methadone Screen Negative, Ur Barbituates Screen Positive H, Ur Phencyclidine Scrn Negative, Ur Amphetamines Screen Negative, U Benzodiazepines Scrn Negative, Urine Cocaine Screen Negative, U Marijuana (THC) Screen Negative 07/08/23 18:00 07/08/23 18:00 Orders (Tests/Meds): ED MEDICATIONS Discontinued Medications Generic Name Dose Route Start Last Admin Trade Name Freq PRN Reason Stop Dose Admin Sodium Chloride 10 ml 07/08/23 18:43 Sodium Chloride 0.9% 10ml Flush Syringe IV 08/07/23 18:42 NEEDED PRN Maintain IV Site ORDERS Category Date Time Status CT head/brain wo con Stat Cat Scan 07/08/23 18:11 Completed XR chest portable Stat Exams 07/08/23 18:11 Completed CBC w/Auto Diff [Complete Blood Count Auto Diff] Stat Lab 07/08/23 18:00 Completed CMP [Comprehensive Metabolic Panel] Stat Lab 07/08/23 18:00 Completed D-Dimer Stat Lab 07/08/23 18:41 Completed Drug Screen,Urine Stat Lab 07/08/23 18:55 Completed Phenytoin (Dilantin) Stat Lab 07/08/23 18:00 Completed Troponin I Stat Lab 07/08/23 18:00 Completed Urinalysis and Microscopic Stat Lab 07/08/23 18:55 Completed Venous Blood Gas Stat RT 07/08/23 18:48 Completed Medical Decision Narrative: In summary patient is a 58-year-old male who presents to the emergency department for evaluation of reported altered mental status. Patient is hemodynamically stable upon arrival, afebrile. Physical exam shows patient to be somewhat lethargic but responsive although his baseline is unknown. Patient has no focal neurologic signs nor any other focal issues noted.. Differential diagnosis includes seizure, ACS, stroke etc. Initial workup will be conducted with hematologic labs EKG CT of the head without contrast and chest x-ray. Initial workup reviewed by me shows his hematologic labs are nonactionable, his Dilantin level is therapeutic at 20 although I do not know what his target ranges,-chest x-ray shows no acute processes. EKG shows no evidence of ACS patient's heart rate is sinus rhythm on the monitor. CT of the head contrast shows no acute processes.. Upon repeat evaluation patient was ambulated and was able to ambulate without assistance around the emergency department and was taking and tolerating oral intake prior to discharge.. Given this appropriate for discharge back to the assisted living facility with instructions to follow- up with his PCP for reevaluation or return to the ER for any worsening or change in symptoms <Judi Castaneda, DO - Last Filed: 07/08/23 22:55> Vital Signs: 07/08/23 17:48 07/08/23 17:49 07/08/23 18:00 Temperature 98.6 F Temperature Source Oral Pulse Rate 86 81 Pulse Rate [Left] 83 Respiratory Rate 13 14 14 Blood Pressure 154/95 H 153/95 H Blood Pressure [Right Arm] 154/95 H Blood Pressure Mean [Right Arm] 114 Blood Pressure Source Blood Pressure Position Blood Pressure Position [Right Arm] Sitting 02 Sat by Pulse Oximetry 97 97 97 Oxygen Delivery Method Room Air Room Air Room Air 07/08/23 18:37 07/08/23 19:00 07/08/23 19:30 Temperature Temperature Source Pulse Rate 76 78 78 Pulse Rate [Left] Respiratory Rate 14 13 15 Blood Pressure 131/90 135/90 Blood Pressure [Right Arm] Blood Pressure Mean [Right Arm] Blood Pressure Source Blood Pressure Position Blood Pressure Position [Right Arm] 02 Sat by Pulse Oximetry 99 96 95 Oxygen Delivery Method 07/08/23 20:23 Temperature 98.1 F Temperature Source Oral Pulse Rate 83 Pulse Rate [Left] Respiratory Rate 18 Blood Pressure 161/99 H Blood Pressure [Right Arm] Blood Pressure Mean [Right Arm] Blood Pressure Source Automatic Cuff Blood Pressure Position Sitting Blood Pressure Position [Right Arm] 02 Sat by Pulse Oximetry Oxygen Delivery Method Room Air Lab Data Lab Results 07/08/23 18:00: WBC 4.4 L, RBC 5.00, Hgb 15.6, Hct 49.0, MCV 97.9 H, MCH 31.1, MCHC 31.8, RDW 14.0, Plt Count 195, MPV 9.0, Neut % (Auto) 61.6, Lymph % (Auto) 24.3, [place] % (Auto) 12.7 H, Eos % (Auto) 1.0, Baso % (Auto) 0.3, Neut # (Auto) 2.7, Lymph # (Auto) 1.1, [place] # (Auto) 0.6, Eos # (Auto) 0.0, Baso # (Auto) 0.0, Sodium 141, Potassium 4.0, Chloride 107, Carbon Dioxide 25, Anion Gap 13.0, BUN 19, Creatinine 1.10, Estimated Creat Clear 81, Estimated GFR 69, Est GFR ( Amer) 83, Glucose 109 H, Calcium 10.1, Total Bilirubin 0.7, AST 42, ALT 67, Alkaline Phosphatase 139 H, Troponin I < 0.01, Total Protein 8.1, Albumin 4.7, Globulin 3.4 H, Albumin/Globulin Ratio 1.4, Phenytoin 20.5 H* 07/08/23 18:41: D-Dimer 0.35 07/08/23 18:48: VBG pH 7.38, VBG pCO2 41.4, VBG pO2 59.0 H, VBG HCO3 23.9, VBG Total CO2 25.2, VBG O2 Saturation 90.2 H, VBG Base Excess -1.3 07/08/23 18:55: Urine Color Yellow, Urine Appearance Clear, Urine pH 7.0, Ur Specific [place] 1.020, Urine Protein Negative, Urine Glucose (UA) Negative, Urine Ketones Trace, Urine Blood Negative, Urine Nitrate Negative, Urine Bilirubin Negative, Urine Urobilinogen 1.0, Ur Leukocyte Esterase Negative, Urine RBC None, Urine WBC Occasional, Ur Squamous Epith Cells Occasional, Urine Bacteria None, Urine Opiates Screen Negative, Urine Methadone Screen Negative, Ur Barbituates Screen Positive H, Ur Phencyclidine Scrn Negative, Ur Amphetamin es Screen Negative, U Benzodiazepines Scrn Negative, Urine Cocaine Screen Negative, U Marijuana (THC) Screen Negative Orders (Tests/Meds): ED MEDICATIONS Discontinued Medications Generic Name Dose Route Start Last Admin Trade Name Freq PRN Reason Stop Dose Admin Sodium Chloride 10 ml 07/08/23 18:43 Sodium Chloride 0.9% 10ml Flush Syringe IV 08/07/23 18:42 NEEDED PRN Maintain IV Site ORDERS Category Date Time Status CT head/brain wo con Stat Cat Scan 07/08/23 18:11 Completed XR chest portable Stat Exams 07/08/23 18:11 Completed CBC w/Auto Diff [Complete Blood Count Auto Diff] Stat Lab 07/08/23 18:00 Completed CMP [Comprehensive Metabolic Panel] Stat Lab 07/08/23 18:00 Completed D-Dimer Stat Lab 07/08/23 18:41 Completed Drug Screen,Urine Stat Lab 07/08/23 18:55 Completed Phenytoin (Dilantin) Stat Lab 07/08/23 18:00 Completed Troponin I Stat Lab 07/08/23 18:00 Completed Urinalysis and Microscopic Stat Lab 07/08/23 18:55 Completed Venous Blood Gas Stat RT 07/08/23 18:48 Completed ECG Data Tracing #1: I reviewed this ECG and interpreted as documented below: Normal sinus rhythm with a ventricular rate of [address] changes concerning for ischemia. Normal axis and intervals. ECG initial impression date: 07/08/23 ECG initial impression time: 18:47 Medical Decision Narrative: In summary patient is a 58-year-old male who presents to the emergency department for evaluation of reported altered mental status. Patient is hemodynamically stable upon arrival, afebrile. Physical exam shows patient to be somewhat lethargic but responsive although his baseline is unknown. Patient has no focal neurologic signs nor any other focal issues noted.. Differential diagnosis includes seizure, ACS, stroke etc. Initial workup will be conducted with hematologic labs EKG CT of the head without contrast and chest x-ray. Initial workup reviewed by me shows his hematologic labs are nonactionable, his Dilantin level is therapeutic at 20 although I do not know what his target ranges,-chest x-ray shows no acute processes. EKG shows no evidence of ACS patient's heart rate is sinus rhythm on the monitor. CT of the head contrast shows no acute processes.. Upon repeat evaluation patient was ambulated and was able to ambulate without assistance around the emergency department and was taking and tolerating oral intake prior to discharge.. Given this appropriate for discharge back to the assisted living facility with instructions to follow- up with his PCP for reevaluation or return to the ER for any worsening or change in symptoms I was consulted by the CAROLEE, and we discussed the complexity of the problems being addressed. I approved the treatment and management plan for this patient's care in the emergency department, thus performing a substantive portion of the medical decision making. Patient was initially slower to respond, however on repeat assessments, he was very alert, answers questions, and was able to walk throughout the emergency department. He ate and drink without difficulty and was deemed to be appropriate at his baseline per nursing as well as per medical record review. Given this, he was deemed to be appropriate for discharge. Judi Castaneda, DO Critical Care <AGAPITO Dolan - Last Filed: 07/08/23 21:22> Critical Care Time Critical Care Time: No
--- NOTE | 2023-07-08 18:11 | CT_ITS ---
PROCEDURE INFORMATION: Exam: CT Head Without Contrast Exam date and time: 07/08/2023 6:32 PM Age: 58 years old Clinical indication: Altered mental status/memory loss; Additional info: Altered mental status, seizure disorder TECHNIQUE: Imaging protocol: Computed tomography of the head without contrast. Radiation optimization: All CT scans at this facility use at least one of these dose optimization techniques: automated exposure control; mA and/or kV adjustment per patient size (includes targeted exams where dose is matched to clinical indication); or iterative reconstruction. COMPARISON: No relevant prior studies available. FINDINGS: Limitations: Motion artifact does moderately limit the sensitivity of this examination. Brain: There is no evidence of acute intracranial hemorrhage, extra-axial collection or locoregional mass effect. There are scattered hypodensities in the periventricular and subcortical white matter. The appearance is nonspecific, but most likely represents chronic small vessel disease in a person of this age Cerebral ventricles: The ventricles, sulci and cisterns are normal in size and configuration for patient's age. No hydrocephalus or midline structure shift Pituitary gland and sella: Sellar/parasellar structures, craniocervical junction and orbits are unremarkable Paranasal sinuses: Visualized sinuses are unremarkable. No fluid levels. Mastoid air cells: Visualized mastoid air cells are well aerated. Bones/joints: No calvarial fracture Soft tissues: Unremarkable. IMPRESSION: 1. Motion degraded exam. No acute intracranial abnormality. No calvarial fracture. 2. If better assessment of seizure etiology is desired a brain MRI can be obtained for better evaluation.
--- NOTE | 2023-07-08 18:11 | XR_ITS ---
PROCEDURE INFORMATION: Exam: XR Chest Exam date and time: 07/08/2023 6:23 PM Age: 58 years old Clinical indication: Other: AMS; Additional info: Altered mental status TECHNIQUE: Imaging protocol: Radiologic exam of the chest. Views: 1 view. COMPARISON: CR XR CHEST PORTABLE 04/21/2022 10:05 AM FINDINGS: Lungs: There is poor ventilation of the lungs, with perihilar vascular crowding and a diffuse increase in pulmonary parenchymal density. No evidence of pneumonia or interstitial edema. Pleural spaces: Unremarkable. No pleural effusion. No pneumothorax. Heart/Mediastinum: Unremarkable. No cardiomegaly. Bones/joints: Unremarkable. IMPRESSION: No evidence of pneumonia or interstitial edema.
[2023-07-08 18:30] LABS: Basophils % 0.3 % (0.1-2.0); Hemoglobin 15.6 g/dL (14.1-18.0); Lymphocytes # 1.1 K/mm3 (0.7-4.5); Lymphocytes % 24.3 % (10-50); Mean Corpuscular HGB Conc 31.8 g/dL (31.8-35.4); Mean Corpuscular Hemoglobin 31.1 pg (27.0-31.2); Mean Corpuscular Volume 97.9 fl (80-94); Monocytes # 0.6 K/mm3 (0.1-1.0); Monocytes % 12.7 % (1.7-9.3); Neutrophils # 2.7 K/mm3 (1.8-7.8); Neutrophils % 61.6 % (37.0-80.0); Platelet Count 195 K/mm3 (142-424); White Blood Count 4.4 K/mm3 (4.8-10.8)
--- NOTE | 2023-07-08 18:30 | PC.NURSE ---
PT GONE TO CT
[2023-07-08 18:38] LABS: Alanine Aminotransferase 67 U/L (12-78); Albumin Level 4.7 g/dl (3.5-5.0); Albumin/Globulin Ratio 1.4 (1.1-1.8); Alkaline Phosphatase 139 U/L (38-126); Aspartate Amino Transferase 42 U/L (17-59); Bilirubin,Total 0.7 mg/dl (0.2-1.3); Blood Urea Nitrogen 19 mg/dl (9-20); Calcium 10.1 mg/dl (8.4-10.2); Carbon Dioxide 25 mmol/L (22.0-30.0); Chloride 107 mmol/L (98-107); Creatinine Clearance Estimated 81 mL/min (50-200); Estimated Glomerular Filt Rate 69 ml/min (>60); GFR (African American) 83 ML/MIN (>60); Globulin 3.4 g/dL (1.3-3.2); Glucose 109 mg/dl (74-100); Phenytoin (Dilantin) 20.5 ug/ml (10-20); Sodium 141 mmol/L (136-145); Total Protein,Serum 8.1 g/dl (6.3-8.2)
--- NOTE | 2023-07-08 18:46 | ECG_ITS ---
APPROVED REPORT Exam: Resting ECG HR:74 bpm ECG Measurements Heart Rate 74 AXES ME 145 P 60 QRSd 80 QRS 31 QT 370 T 45 QTc 397 Conclusion SINUS RHYTHM POSSIBLE RIGHT VENTRICULAR CONDUCTION DELAY [RSR (QR) IN V1/V2] BORDERLINE ECG UNCONFIRMED REPORT Electronically signed by : Yaya Almonte MD 07/09/2023 10:05:10
[2023-07-08 18:48] LABS: Troponin I < 0.01 ng/ml (0.00-0.034)
--- NOTE | 2023-07-08 18:48 | PC.NURSE ---
respiratory aware of blood in lab for vbg
[2023-07-08 18:53] LABS: VBG Base Excess -1.3 mmol/L (-2.4-2.3); VBG HCO3 23.9 mmol/L (23-30); VBG Oxygen Saturation 90.2 % (50-70); VBG PCO2 41.4 mmol/L (35-51); VBG PH 7.38 mmol/L (7.31-7.41); VBG Total CO2 25.2 mmol/L (23-27)
[2023-07-08 18:58] LABS: Microscopic, Urine URINE MICROSCOPIC (MICROSCOPIC)
[2023-07-08 19:10] LABS: Appearance,Urine CLEAR (Clear); Bilirubin,Urine Negative (Negative); Blood, Urine Negative (Negative); Color,Urine YELLOW (Yellow); Glucose,Urine (UA) Negative (Negative); Ketones,Urine TRACE (Negative); Leukocyte Esterase,Urine Negative (Negative); Nitrate,Urine Negative (Negative); Protein,Urine Negative (Negative)
[2023-07-08 19:10] LABS: D-Dimer 0.35 ug/mL (0.0-0.5)
[2023-07-08 19:23] LABS: Benzodiazepines Screen,Urine Negative ng/ml (<200)
[2023-07-08 19:24] LABS: Amphetamine/Metha Screen,Urine Negative ng/ml (<1000)
[2023-07-08 19:26] LABS: Cannabinoid Screen,Urine Negative ng/ml (<50); Methadone Screen,Urine Negative ng/ml (<300)
[2023-07-08 19:27] LABS: Opiate Screen,Urine Negative ng/ml (<300)
[2023-07-08 19:33] LABS: Barbiturates Screen,Urine Positive ng/ml (<200)
[2023-07-08 19:35] LABS: Cocaine Screen,Urine Negative ng/ml (<300); Squamous Epithelial Cell,Urine Occasional #/hpf (0-5); WBC,Urine Occasional #/hpf (0-3)
--- NOTE | 2023-07-08 19:54 | PC.NURSE ---
TRN ambulated patient around nurses station with stand by assist, while patient used walker. [employer] socks applied prior to ambulation. Patient tolerated walk well, and patient is now back in room, sitting in bed. [place], chips and drink provided. Patient eating at present, and tolerating well. PA made aware of patient toleration to ambulation, and eating.
[2023-07-08 20:00] LABS: Phencyclidine Screen,Urine Negative ng/ml (<25)
--- NOTE | 2023-07-08 20:29 | PC.NURSE ---
[facility]
== END 2023-07-08 20:56 | disposition home or self-care (01) ==
PROVIDERS: Physician Assistant; Emergency Provider Emergency Medicine
DX: R41.82 Altered mental status, unspecified (principal); G40.909 Epilepsy, unspecified, not intractable, without status epilepticus
CPT/HCPCS: 70450; 71045; 80053; 80185; 80307; 81001; 82803; 84484; 85025; 85378; 93005; 99285

== ENCOUNTER 2024-07-13 21:31 | Emergency (ER) | payer MEDICAID, SELFPAY ==
[2024-07-13 21:31] VITALS: BP 152/82; PULSE 82; RESP 16; TEMP 36.6; O2SAT 94; BMI 34.2
--- NOTE | 2024-07-13 21:58 | CT_ITS ---
PROCEDURE INFORMATION: Exam: CT Head Without Contrast Exam date and time: 07/13/2024 10:13 PM Age: 59 years old Clinical indication: Altered mental status/memory loss; Additional info: AMS TECHNIQUE: Imaging protocol: Computed tomography of the head without contrast. Radiation optimization: All CT scans at this facility use at least one of these dose optimization techniques: automated exposure control; mA and/or kV adjustment per patient size (includes targeted exams where dose is matched to clinical indication); or iterative reconstruction. COMPARISON: CT HEAD/BRAIN WO CON 07/08/2023 6:32 PM FINDINGS: Brain: There is moderate diffuse cerebral atrophy present. Cerebral ventricles: No ventriculomegaly. Paranasal sinuses: Visualized sinuses are unremarkable. No fluid levels. Mastoid air cells: Visualized mastoid air cells are well aerated. Bones: Unremarkable. No acute fracture. Soft tissues: Unremarkable. IMPRESSION: No acute intracranial abnormality.
--- NOTE | 2024-07-13 21:58 | XR_ITS ---
PROCEDURE INFORMATION: Exam: XR Chest Exam date and time: 07/13/2024 10:08 PM Age: 59 years old Clinical indication: Other: AMS TECHNIQUE: Imaging protocol: Radiologic exam of the chest. Views: 1 view. COMPARISON: CR XR CHEST PORTABLE 07/08/2023 6:23 PM FINDINGS: Lungs: Unremarkable. No consolidation. Pleural spaces: Unremarkable. No pleural effusion. No pneumothorax. Heart/Mediastinum: Unremarkable. No cardiomegaly. Bones/joints: Flowing osteophytes throughout the thoracic spine which can be seen with DISH. IMPRESSION: No acute findings.
[2024-07-13 22:00] VITALS: BP 157/91; PULSE 81; O2SAT 95
[2024-07-13 22:12] LABS: Coronavirus 19, PCR Not Detected (NotDetected); Influenza A, PCR Not Detected (NotDetected); Influenza B, PCR Not Detected (NotDetected)
[2024-07-13 22:14] LABS: Lactate Venous 0.9 mmol/L (0.4-2.0); VBG Base Excess -0.9 mmol/L (-2.4-2.3); VBG HCO3 23.3 mmol/L (23-30); VBG Oxygen Saturation 97.7 % (50-70); VBG PCO2 35.5 mmol/L (35-51); VBG PH 7.44 mmol/L (7.31-7.41); VBG PO2 98.4 mmol/L (28-40); VBG Total CO2 24.4 mmol/L (23-27)
[2024-07-13 22:17] LABS: Basophils % 0.5 % (0.1-2.0); Eosinophils # 0.1 K/mm3 (0.0-0.4); Eosinophils % 1.4 % (0.1-12.0); Hematocrit 46.8 % (42.0-52.0); Hemoglobin 15.6 g/dL (14.1-18.0); Lymphocytes # 1.4 K/mm3 (0.7-4.5); Lymphocytes % 24.4 % (10-50); Mean Corpuscular HGB Conc 33.3 g/dL (31.8-35.4); Mean Corpuscular Hemoglobin 30.5 pg (27.0-31.2); Mean Corpuscular Volume 91.4 fl (80-94); Mean Platelet Volume 10.8 fl (7.4-10.4); Monocytes # 0.7 K/mm3 (0.1-1.0); Monocytes % 12.1 % (1.7-9.3); Neutrophils # 3.3 K/mm3 (1.8-7.8); Neutrophils % 60.3 % (37.0-80.0); Platelet Count 213 K/mm3 (142-424); Red Blood Count 5.12 M/mm3 (4.60-6.20); Red Cell Distribution Width 12.9 % (11.5-17.5); White Blood Count 5.5 K/mm3 (4.8-10.8)
[2024-07-13 22:30] VITALS: BP 164/97; PULSE 77; O2SAT 96
--- NOTE | 2024-07-13 22:53 | ED_ITS ---
Discharge Plan Disposition Patient Disposition: Home, Self-Care Prescriptions Prescriptions: New sulfamethoxazole-trimethoprim 800-160 mg tablet 1 tab PO BID 7 Days Qty: 14 0RF No Action aripiprazole 30 mg tablet 30 mg PO DAILY Qty: 30 0RF benztropine 1 mg tablet 1 mg PO DAILY Qty: 30 0RF citalopram 20 mg tablet 20 mg PO DAILY Qty: 30 0RF diltiazem HCl 180 mg capsule,extended release 24hr 180 mg PO DAILY Qty: 30 0RF loratadine 10 mg tablet 5 mg PO DAILY Qty: 15 0RF pantoprazole 20 mg tablet,delayed release (DR/EC) 20 mg PO DAILY Qty: 30 0RF donepezil [Aricept] 5 mg tablet 5 mg PO DAILY Qty: 30 0RF mirtazapine 15 mg tablet 15 mg PO HS Qty: 30 0RF risperidone 3 mg tablet 3 mg PO BID Qty: 60 0RF metoclopramide HCl 10 mg tablet 10 mg PO TID Qty: 90 0RF phenytoin sodium extended 100 mg capsule 100 mg PO TID Qty: 90 0RF albuterol sulfate 1.25 mg/3 mL solution for nebulization 1.25 mg INHALATION QID Qty: 90 0RF hydroxyzine pamoate 50 mg capsule 50 mg PO BIDP PRN (Reason: Anxiety) Qty: 60 0RF ondansetron HCl 4 mg tablet 4 mg PO Q8H PRN (Reason: nausea and vomiting) Qty: 30 0RF loperamide 2 mg capsule 2 mg PO Q6H PRN (Reason: Diarrhea) Qty: 120 0RF acetaminophen 325 mg tablet 650 mg PO Q4HP PRN (Reason: Fever) Qty: 60 0RF clonazepam 1 mg tablet 1 mg PO BID 30 Days Qty: 60 0RF phenobarbital 32.4 mg tablet 32.4 mg PO BID 30 Days Qty: 60 5RF clonazepam 0.5 mg tablet 0.5 mg PO TID Qty: 90 2RF magnesium oxide 400 mg (241.3 mg magnesium) Tablet 400 mg PO BID Qty: 0 0RF cefdinir 300 mg capsule 300 mg PO BID 3 Days Qty: 6 0RF Rx Instructions: first dose 04/25/22 Referrals Follow up/Referrals: Campbell Combs APRN [Primary Care Provider] - See instructions Activity Restrictions/Add. Instructions Additional Instructions/Restrictions: Please take antibiotics as prescribed for treatment of urinary tract infection. Please follow-up with your primary care provider. Please return to the emergency department if you develop any new or worsening symptoms or become concerned for your health. Clinical Impressions Clinical Impression: Acute UTI Instructions Patient Instructions: DI for Altered Mental Status Print Language Print Language: Swedish Discharge ED Provider: Kameron Quintero General Adult HPI <Judi Castaneda DO - Last Filed: 07/13/24 23:03> General Chief complaint: Altered Mental Status Stated complaint: Just not himself Time Seen by Provider: 07/13/24 21:47 Mode of Arrival: EMS Source of Information: EMS Description of Symptoms (Recalled from ER Triage Doc. by RN): Patient has not been acting himself for the past two days. Patient normally walks casas and talks to staff- he has been staying in the bed for two days and didn't come down for his dinner, which was his favorite meal. History of Present Illness HPI narrative: This patient is a 59-year-old male with a history of bipolar disorder and seizure disorder who is also legally blind presenting with concern for altered mental status. According to [facility] where he resides, he has not been acting himself for the last 2 days. They state he usually walks the halls and aggravate staff, but he has been in bed for 2 days and did not come down for dinner which is his favorite meal. On my assessment of the patient, he answers basic questions such as his name. He answers no to whether or not he is having any sort of pain. He does not provide any other history. It was like he is baseline poor historian based on medical record review. Related Data Previous Rx's ?Medication ?Instructions ?Recorded cefdinir 300 mg capsule 300 mg PO BID 3 days #6 caps 04/24/22 magnesium oxide 400 mg (241.3 mg 400 mg PO BID #0 tabs 04/24/22 magnesium) tablet acetaminophen 325 mg tablet 650 mg (2 x 325 mg) PO Q4HP PRN 08/08/22 Fever #60 tabs albuterol sulfate 1.25 mg/3 mL 1.25 mg (3 mL) inhalation QID 08/08/22 solution for nebulization Breathing problems #90 mL aripiprazole 30 mg tablet 30 mg PO DAILY MOOD #30 tabs 08/08/22 benztropine 1 mg tablet 1 mg PO DAILY MOOD #30 tabs 08/08/22 citalopram 20 mg tablet 20 mg PO DAILY Depression #30 tabs 08/08/22 diltiazem HCl 180 mg 180 mg PO DAILY HEART RATE #30 caps 08/08/22 capsule,extended release 24 hr donepezil 5 mg tablet (Aricept) 5 mg PO DAILY #30 tabs 08/08/22 hydroxyzine pamoate 50 mg capsule 50 mg PO BIDP PRN Anxiety #60 caps 08/08/22 loperamide 2 mg capsule 2 mg PO Q6H PRN Diarrhea #120 caps 08/08/22 loratadine 10 mg tablet 5 mg (1/2 x 10 mg) PO DAILY #15 08/08/22 tabs metoclopramide HCl 10 mg tablet 10 mg PO TID stomach #90 tabs 08/08/22 mirtazapine 15 mg tablet 15 mg PO HS MOOD #30 tabs 08/08/22 ondansetron HCl 4 mg tablet 4 mg PO Q8H PRN nausea and 08/08/22 vomiting #30 tabs pantoprazole 20 mg tablet,delayed 20 mg PO DAILY GERD #30 tabs 08/08/22 release phenytoin sodium extended 100 mg 100 mg PO TID seizures #90 caps 08/08/22 capsule risperidone 3 mg tablet 3 mg PO BID MOOD #60 tabs 08/08/22 clonazepam 1 mg tablet 1 mg PO BID 30 days #60 tabs 11/04/22 phenobarbital 32.4 mg tablet 32.4 mg PO BID seizures 30 days 03/04/23 #60 tabs clonazepam 0.5 mg tablet 0.5 mg PO TID #90 tabs 03/06/23 sulfamethoxazole 800 1 tab PO BID 7 days #14 tabs 07/14/24 mg-trimethoprim 160 mg tablet Allergies Allergy/AdvReac Type Severity Reaction Status Date / Time No Known Allergies Allergy Verified 04/27/21 10:42 PFS <Judi Castaneda, DO - Last Filed: 07/13/24 23:03> PFS Disclaimer: The information contained in this section may have been updated after the patient was seen, as this information can be updated by other users. Medical History Legally blind BMI 37.0-37.9, adult Bipolar disorder Seizure disorder Surgical History H/O colonoscopy S/P bronchoscopy with biopsy Family History Mother No problems noted. Father No problems noted. Social History Smoking Status: Unknown if ever smoked second hand exposure: No alcohol intake: never substance use type: marijuana current occupational status: disabled Travel in the last 8 weeks: None household members: other housing: assisted living facility current occupational exposures/hazards: No caffeine: Yes Have you lived/traveled outside [place] in past 30 days?: No Contact w/someone who lives/traveled outside US past 30 days?: No Exposure to someone with infectious disease in past 14 days?: No Do you have a fever (greater than 100.4 F or 38 C)?: No Have you tested positive for COVID-19: No Exposed to someone with COVID-19 in past 14 days?: No Do you have a sore throat?: No Do you have a cough?: No Do you have any weakness?: No Do you have any diarrhea?: No Are you experiencing any unusual bleeding?: No Do you have any muscle aches/pain?: No Do you have any abdominal pain?: No Are you experiencing loss of taste or smell?: No Other Medical History Have you received the Flu Vaccine for this season: No Have you received the Pneumonia Vaccine: No <Judi Castaneda DO - Last Filed: 07/13/24 23:03> ROS Obtained: Yes All systems reviewed & no additional complaints except as documented Physical Exam <Judi Castaneda DO - Last Filed: 07/13/24 23:03> General General appearance: alert and in no apparent distress Head Head exam: atraumatic and normocephalic Eye Eye exam: Present normal appearance, PERRL and EOMI ENT ENT exam: Present normal exam, normal oropharynx, mucous membranes moist and normal external ear exam Neck Neck exam: Present normal inspection, full ROM and trachea midline; Absent tenderness Chest Chest inspection: Present normal inspection and symmetric chest wall rise; Absent tenderness Respiratory Respiratory exam: Present normal lung sounds bilaterally; Absent respiratory distress, wheezes, stridor or accessory muscle use Cardiovascular Cardiovascular exam: Present regular rate and normal rhythm Abdominal Exam Abdominal exam: Present soft; Absent distention, tenderness or guarding Extremities Exam Extremities exam: Present normal inspection, full ROM and normal capillary refill; Absent tenderness or edema Back Exam Back exam: Present normal inspection and full ROM; Absent tenderness Neurological Exam Neurological exam: Present alert, CN II-XII intact, normal gait and other (No focal neurologic deficits, but he does not answer orientation questions appropriately); Absent oriented X3 or motor sensory deficit Psychiatric Psychiatric exam: Present flat affect Skin Skin exam: Present warm and dry Medical Decision Making <Judi Castaneda, DO - Last Filed: 07/13/24 23:03> Medical Records Medical records reviewed: Yes I reviewed the patient's medical records. Screening: Per USPSTF and CDC recommendations, given the prevalence of disease in our region, it is our hospital?s policy to screen for HIV and viral Hepatitis for all patients aged 18 and over and those with ongoing risk factors. Mamadou Inquiry Pt receiving controlled substance: No Vital Signs: 07/13/24 21:31 07/13/24 22:00 07/13/24 22:30 Temperature 97.9 F Temperature Source Oral Pulse Rate 81 77 Pulse Rate [Right Radial] 82 Respiratory Rate 16 Blood Pressure 157/91 H 164/97 H Blood Pressure [Right Arm] 152/82 H Blood Pressure Mean Blood Pressure Mean [Right Arm] 105 Blood Pressure Source Blood Pressure Source [Right Arm] Automatic Cuff Blood Pressure Position Blood Pressure Position [Right Arm] Supine 02 Sat by Pulse Oximetry 94 L 95 96 Oxygen Delivery Method Room Air 07/13/24 23:01 07/13/24 23:30 07/14/24 00:00 Temperature Temperature Source Pulse Rate 78 80 81 Pulse Rate [Right Radial] Respiratory Rate Blood Pressure 189/106 H 172/96 H 173/100 H Blood Pressure [Right Arm] Blood Pressure Mean Blood Pressure Mean [Right Arm] Blood Pressure Source Blood Pressure Source [Right Arm] Blood Pressure Position Blood Pressure Position [Right Arm] 02 Sat by Pulse Oximetry 97 97 97 Oxygen Delivery Method 07/14/24 00:31 07/14/24 01:00 07/14/24 01:30 Temperature Temperature Source Pulse Rate 83 81 79 Pulse Rate [Right Radial] Respiratory Rate Blood Pressure 145/87 H 159/99 H 172/113 H Blood Pressure [Right Arm] Blood Pressure Mean 113 132 Blood Pressure Mean [Right Arm] Blood Pressure Source Blood Pressure Source [Right Arm] Blood Pressure Position Blood Pressure Position [Right Arm] 02 Sat by Pulse Oximetry 97 96 97 Oxygen Delivery Method 07/14/24 01:39 07/14/24 03:39 07/14/24 05:19 Temperature 97.9 F Temperature Source Oral Pulse Rate 74 92 H 80 Pulse Rate [Right Radial] Respiratory Rate 16 Blood Pressure 132/74 132/78 138/72 Blood Pressure [Right Arm] Blood Pressure Mean Blood Pressure Mean [Right Arm] Blood Pressure Source Automatic Cuff Blood Pressure Source [Right Arm] Blood Pressure Position Supine Blood Pressure Position [Right Arm] 02 Sat by Pulse Oximetry 98 Oxygen Delivery Method Room Air Lab Data Lab results reviewed: Yes I reviewed the patient's lab results. Lab Results 07/13/24 21:03: WBC 5.5, RBC 5.12, Hgb 15.6, Hct 46.8, MCV 91.4, MCH 30.5, MCHC 33.3, RDW 12.9, Plt Count 213, MPV 10.8 H, Neut % (Auto) 60.3, Lymph % (Auto) 24.4, [place] % (Auto) 12.1 H, Eos % (Auto) 1.4, Baso % (Auto) 0.5, Neut # (Auto) 3.3, Lymph # (Auto) 1.4, [place] # (Auto) 0.7, Eos # (Auto) 0.1, Baso # (Auto) 0.0, Sodium 138, Potassium 4.4, Chloride 103, Carbon Dioxide 23, Anion Gap 16.4 H, B UN 24 H, Creatinine 1.20, Estimated Creat Clear 97, Estimated GFR 62, Est GFR ( Amer) 75, Glucose 106 H, Calcium 9.8, Phosphorus 3.4, Magnesium 1.9, Total Bilirubin 0.6, AST 50, ALT 56, Alkaline Phosphatase 124, Total Creatine Kinase 137, Total Protein 8.3 H, Albumin 4.9, Globulin 3.4 H, Albumin/Globulin Ratio 1.4, TSH 1.03, Thyroxine (T4) 10.6 07/13/24 22:07: SARS-CoV-2 (PCR) Not detected, Influenza A Untype (PCR) Not detected, Influenza Type B (PCR) Not detected 07/13/24 22:11: VBG pH 7.44 H, VBG pCO2 35.5, VBG pO2 98.4 H, VBG HCO3 23.3, VBG Total CO2 24.4, VBG O2 Saturation 97.7 H, VBG Base Excess -0.9, VBG Lactic Acid 0.9 07/14/24 00:05: Urine Color Dark yellow, Urine Appearance Cloudy, Urine pH 6.0, Ur Specific [place] >= 1.030, Urine Protein Trace, Urine Glucose (UA) Negative, Urine Ketones Trace, Urine Blood Negative, Urine Nitrate Negative, Urine Bilirubin 1+ A, Urine Urobilinogen 1.0, Ur Leukocyte Esterase Negative, Urine RBC None, Urine WBC 3-5, Ur Squamous Epith Cells Occasional, Ur Renal Epithelial Cell 3-5, Urine Bacteria 4+, Urine Opiates Screen Negative, Urine Methadone Screen Negative, Ur Barbituates Screen Positive H, Ur Phencyclidine Scrn Negative, Ur Amphetamines Screen Negative, U Benzodiazepines Scrn Negative, Urine Cocaine Screen Negative, U Marijuana (THC) Screen Negative 07/13/24 21:03 07/13/24 21:03 Orders (Tests/Meds): ED MEDICATIONS Discontinued Medications Generic Name Dose Route Start Last Admin Trade Name Brentq PRN Reason Stop Dose Admin Trimethoprim/Sulfamethoxazole 1 each 07/14/24 01:28 07/14/24 01:33 Sulfa/Trimethoprim 1 Tablet PO 07/14/24 01:29 1 each ONCE ONE Administration ORDERS Category Date Time Status CT head/brain wo con Stat Cat Scan 07/13/24 21:58 Completed CXR --portable [XR chest portable] Stat Exams 07/13/24 21:58 Completed CK [Creatine Kinase] Stat Lab 07/13/24 21:03 Completed Complete Blood Count Auto Diff Stat Lab 07/13/24 21:03 Completed Comprehensive Metabolic Panel Stat Lab 07/13/24 21:03 Completed MAG [Magnesium] Stat Lab 07/13/24 21:03 Completed PHOS [Phosphorous] Stat Lab 07/13/24 21:03 Completed Rapid PCR Covid and Flu A/B Stat Lab 07/13/24 22:07 Completed T4 (Thyroxine) Stat Lab 07/13/24 21:03 Completed TSH [Thyroid Stimulating Hormone] Stat Lab 07/13/24 21:03 Completed UA [Urinalysis and Microscopic] Stat Lab 07/14/24 00:05 Completed UDS [Drug Screen,Urine] Stat Lab 07/14/24 00:05 Completed Urine Culture Stat Micro 07/14/24 00:05 Received VBG [Venous Blood Gas] Stat RT 07/13/24 22:11 Completed ECG Data Tracing #1: I reviewed this ECG and interpreted as documented below: Normal sinus rhythm with a ventricular rate of 80 bpm. Nonspecific T wave abnormality but no acute ST changes concerning for ischemia. Normal intervals. ECG initial impression date: 07/13/24 ECG initial impression time: 23:02 Medical Decision Narrative: In summary, this patient is a 59-year-old male presenting to the Emergency Department for evaluation of reported altered mental status and stating that he is not acting himself. Differential diagnoses considered include but are not limited to viral syndrome, pneumonia, dehydration, electrolyte derangements, rhabdomyolysis, intracranial process, medication adverse reaction, catatonia. Ruling out the most morbid conditions drove assessment. It should be noted patient's history includes bipolar disorder, legal blindness, baseline intellectual disability with inability to provide reliable history which likely are not at goal therapy. This complicates all aspects of care by increasing patient's risk for morbidity. I reviewed patient's past medical records and noted previous evaluation 07/08/2024. At that time, there was concern for alteration of mental status but he got up and walked around, ate and drink and seemed to be his normal self based on the medical record review. Given this, he was discharged back to [facility]. He is on extensive psychiatric medications On exam, the patient is lying in bed in no acute distress. He follows commands, has no focal neurologic deficit. He only tells me his name but does not answer any other questions. vitals are reassuring cardiac telemetry. Workup included broad lab evaluation to evaluate for infectious, metabolic, cardiac etiologies as a cause of symptoms as well as CT head and chest x-ray. I independently interpreted CT head and chest x-ray prior to the radiologist read and noted no large space-occupying lesion or intracranial hemorrhage, no obvious focal pneumonia. Please see their read for final interpretation. Labs were obtained that demonstrated reassuring CBC and VBG. Remainder of workup is pending at time of signout to Dr. Quintero.. <Kameron Quintero MD - Last Filed: 07/15/24 02:14> Vital Signs: 07/13/24 21:31 07/13/24 22:00 07/13/24 22:30 Temperature 97.9 F Temperature Source Oral Pulse Rate 81 77 Pulse Rate [Right Radial] 82 Respiratory Rate 16 Blood Pressure 157/91 H 164/97 H Blood Pressure [Right Arm] 152/82 H Blood Pressure Mean Blood Pressure Mean [Right Arm] 105 Blood Pressure Source Blood Pressure Source [Right Arm] Automatic Cuff Blood Pressure Position Blood Pressure Position [Right Arm] Supine 02 Sat by Pulse Oximetry 94 L 95 96 Oxygen Delivery Method Room Air 07/13/24 23:01 07/13/24 23:30 07/14/24 00:00 Temperature Temperature Source Pulse Rate 78 80 81 Pulse Rate [Right Radial] Respiratory Rate Blood Pressure 189/106 H 172/96 H 173/100 H Blood Pressure [Right Arm] Blood Pressure Mean Blood Pressure Mean [Right Arm] Blood Pressure Source Blood Pressure Source [Right Arm] Blood Pressure Position Blood Pressure Position [Right Arm] 02 Sat by Pulse Oximetry 97 97 97 Oxygen Delivery Method 07/14/24 00:31 07/14/24 01:00 07/14/24 01:30 Temperature Temperature Source Pulse Rate 83 81 79 Pulse Rate [Right Radial] Respiratory Rate Blood Pressure 145/87 H 159/99 H 172/113 H Blood Pressure [Right Arm] Blood Pressure Mean 113 132 Blood Pressure Mean [Right Arm] Blood Pressure Source Blood Pressure Source [Right Arm] Blood Pressure Position Blood Pressure Position [Right Arm] 02 Sat by Pulse Oximetry 97 96 97 Oxygen Delivery Method 07/14/24 01:39 07/14/24 03:39 07/14/24 05:19 Temperature 97.9 F Temperature Source Oral Pulse Rate 74 92 H 80 Pulse Rate [Right Radial] Respiratory Rate 16 Blood Pressure 132/74 132/78 138/72 Blood Pressure [Right Arm] Blood Pressure Mean Blood Pressure Mean [Right Arm] Blood Pressure Source Automatic Cuff Blood Pressure Source [Right Arm] Blood Pressure Position Supine Blood Pressure Position [Right Arm] 02 Sat by Pulse Oximetry 98 Oxygen Delivery Method Room Air Lab Data Lab Results 07/13/24 21:03: WBC 5.5, RBC 5.12, Hgb 15.6, Hct 46.8, MCV 91.4, MCH 30.5, MCHC 33.3, RDW 12.9, Plt Count 213, MPV 10.8 H, Neut % (Auto) 60.3, Lymph % (Auto) 24.4, [place] % (Auto) 12.1 H, Eos % (Auto) 1.4, Baso % (Auto) 0.5, Neut # (Auto) 3.3, Lymph # (Auto) 1.4, [place] # (Auto) 0.7, Eos # (Auto) 0.1, Baso # (Auto) 0.0, Sodium 138, Potassium 4.4, Chloride 103, Carbon Dioxide 23, Anion Gap 16.4 H, B UN 24 H, Creatinine 1.20, Estimated Creat Clear 97, Estimated GFR 62, Est GFR ( Amer) 75, Glucose 106 H, Calcium 9.8, Phosphorus 3.4, Magnesium 1.9, Total Bilirubin 0.6, AST 50, ALT 56, Alkaline Phosphatase 124, Total Creatine Kinase 137, Total Protein 8.3 H, Albumin 4.9, Globulin 3.4 H, Albumin/Globulin Ratio 1.4, TSH 1.03, Thyroxine (T4) 10.6 07/13/24 22:07: SARS-CoV-2 (PCR) Not detected, Influenza A Untype (PCR) Not detected, Influenza Type B (PCR) Not detected 07/13/24 22:11: VBG pH 7.44 H, VBG pCO2 35.5, VBG pO2 98.4 H, VBG HCO3 23.3, VBG Total CO2 24.4, VBG O2 Saturation 97.7 H, VBG Base Excess -0.9, VBG Lactic Acid 0.9 07/14/24 00:05: Urine Color Dark yellow, Urine Appearance Cloudy, Urine pH 6.0, Ur Specific [place] >= 1.030, Urine Protein Trace, Urine Glucose (UA) Negative, Urine Ketones Trace, Urine Blood Negative, Urine Nitrate Negative, Urine Bilirubin 1+ A, Urine Urobilinogen 1.0, Ur Leukocyte Esterase Negative, Urine RBC None, Urine WBC 3-5, Ur Squamous Epith Cells Occasional, Ur Renal Epithelial Cell 3-5, Urine Bacteria 4+, Urine Opiates Screen Negative, Urine Methadone Screen Negative, Ur Barbituates Screen Positive H, Ur Phencyclidine Scrn Negative, Ur Amphetamines Screen Negative, U Benzodiazepines Scrn Negative, Urine Cocaine Screen Negative, U Marijuana (THC) Screen Negative Orders (Tests/Meds): ED MEDICATIONS Discontinued Medications Generic Name Dose Route Start Last Admin Trade Name Pio PRN Reason Stop Dose Admin Trimethoprim/Sulfamethoxazole 1 each 07/14/24 01:28 07/14/24 01:33 Sulfa/Trimethoprim 1 Tablet PO 07/14/24 01:29 1 each ONCE ONE Administration ORDERS Category Date Time Status CT head/brain wo con Stat Cat Scan 07/13/24 21:58 Completed CXR --portable [XR chest portable] Stat Exams 07/13/24 21:58 Completed CK [Creatine Kinase] Stat Lab 07/13/24 21:03 Completed Complete Blood Count Auto Diff Stat Lab 07/13/24 21:03 Completed Comprehensive Metabolic Panel Stat Lab 07/13/24 21:03 Completed MAG [Magnesium] Stat Lab 07/13/24 21:03 Completed PHOS [Phosphorous] Stat Lab 07/13/24 21:03 Completed Rapid PCR Covid and Flu A/B Stat Lab 07/13/24 22:07 Completed T4 (Thyroxine) Stat Lab 07/13/24 21:03 Completed TSH [Thyroid Stimulating Hormone] Stat Lab 07/13/24 21:03 Completed UA [Urinalysis and Microscopic] Stat Lab 07/14/24 00:05 Completed UDS [Drug Screen,Urine] Stat Lab 07/14/24 00:05 Completed Urine Culture Stat Micro 07/14/24 00:05 Received VBG [Venous Blood Gas] Stat RT 07/13/24 22:11 Completed Medical Decision Narrative: In summary, this patient is a 59-year-old male presenting to the Emergency Department for evaluation of reported altered mental status and stating that he is not acting himself. Differential diagnoses considered include but are not limited to viral syndrome, pneumonia, dehydration, electrolyte derangements, rhabdomyolysis, intracranial process, medication adverse reaction, catatonia. Ruling out the most morbid conditions drove assessment. It should be noted patient's history includes bipolar disorder, legal blindness, baseline intellectual disability with inability to provide reliable history which likely are not at goal therapy. This complicates all aspects of care by increasing patient's risk for morbidity. I reviewed patient's past medical records and noted previous evaluation 07/08/2024. At that time, there was concern for alteration of mental status but he got up and walked around, ate and drink and seemed to be his normal self based on the medical record review. Given this, he was discharged back to [facility]. He is on extensive psychiatric medications On exam, the patient is lying in bed in no acute distress. He follows commands, has no focal neurologic deficit. He only tells me his name but does not answer any other questions. vitals are reassuring cardiac telemetry. Workup included broad lab evaluation to evaluate for infectious, metabolic, cardiac etiologies as a cause of symptoms as well as CT head and chest x-ray. I independently interpreted CT head and chest x-ray prior to the radiologist read and noted no large space-occupying lesion or intracranial hemorrhage, no obvious focal pneumonia. Please see their read for final interpretation. Labs were obtained that demonstrated reassuring CBC and VBG. Remainder of workup is pending at time of signout to Dr. Quintero. Ingrid VU: I assumed care of the patient at the time of handoff from the prior provider. On reassessment patient is up walking around, is more interactive and has better mental status compared to arrival. Laboratories results independently interpreted by me and show urinalysis consistent with UTI. Labs otherwise reassuring. Given this, patient's presentation seems most consistent with acute UTI. No evidence of other underlying significant pathology. Patient discharged in stable condition with prescription for Bactrim after receiving a dose here. Patient is waiting for a ride. Critical Care <Judi Castaneda, - Last Filed: 07/13/24 23:03> Critical Care Time Critical Care Time: No
--- NOTE | 2024-07-13 23:00 | ECG_ITS ---
APPROVED REPORT Exam: Resting ECG HR:80 bpm ECG Measurements Heart Rate 80 AXES WI 143 P 55 QRSd 90 QRS 16 QT 356 T 41 QTc 391 Conclusion SINUS RHYTHM NONSPECIFIC T-WAVE ABNORMALITY BORDERLINE ECG UNCONFIRMED REPORT Electronically signed by : MADELINE LARKIN, 07/15/2024 06:49:30
[2024-07-13 23:01] VITALS: BP 189/106; PULSE 78; O2SAT 97
[2024-07-13 23:12] LABS: Magnesium 1.9 mg/dl (1.6-2.3); Phosphorous 3.4 mg/dl (2.5-4.5)
[2024-07-13 23:29] LABS: Albumin Level 4.9 g/dl (3.5-5.0); Chloride 103 mmol/L (98-107); Potassium 4.4 mmoL/L (3.5-5.1); Sodium 138 mmol/L (136-145)
[2024-07-13 23:30] VITALS: BP 172/96; PULSE 80; O2SAT 97
[2024-07-13 23:31] LABS: Blood Urea Nitrogen 24 mg/dl (9-20); Creatinine Clearance Estimated 97 mL/min (50-200); Estimated Glomerular Filt Rate 62 ml/min (>60); GFR (African American) 75 ML/MIN (>60); Thyroid Stimulating Hormone 1.03 uIU/mL (0.465-4.68)
[2024-07-13 23:32] LABS: Alanine Aminotransferase 56 U/L (12-78); Albumin/Globulin Ratio 1.4 (1.1-1.8); Alkaline Phosphatase 124 U/L (38-126); Anion Gap 16.4 mEq/L (5-15); Aspartate Amino Transferase 50 U/L (17-59); Bilirubin,Total 0.6 mg/dl (0.2-1.3); Calcium 9.8 mg/dl (8.4-10.2); Carbon Dioxide 23 mmol/L (22.0-30.0); Creatine Kinase 137 U/L (55-170); Globulin 3.4 g/dL (1.3-3.2); Glucose 106 mg/dl (74-100); T4 (Thyroxine) 10.6 ug/dl (5.53-11.0); Total Protein,Serum 8.3 g/dl (6.3-8.2)
[2024-07-14] VITALS (7 sets, daily range): BP systolic 132–173; BP diastolic 72–113; PULSE 74–92; RESP 16; TEMP 36.6; O2SAT 96–98
[2024-07-14 00:10] LABS: Microscopic, Urine URINE MICROSCOPIC (MICROSCOPIC)
[2024-07-14 00:23] LABS: Barbiturates Screen,Urine Positive ng/ml (<200)
[2024-07-14 00:24] LABS: Amphetamine/Metha Screen,Urine Negative ng/ml (<1000); Benzodiazepines Screen,Urine Negative ng/ml (<200)
[2024-07-14 00:25] LABS: Cannabinoid Screen,Urine Negative ng/ml (<50); Methadone Screen,Urine Negative ng/ml (<300)
[2024-07-14 00:26] LABS: Cocaine Screen,Urine Negative ng/ml (<300)
[2024-07-14 00:27] LABS: Opiate Screen,Urine Negative ng/ml (<300); Phencyclidine Screen,Urine Negative ng/ml (<25)
[2024-07-14 01:18] LABS: Blood, Urine Negative (Negative); Glucose,Urine (UA) Negative (Negative); Ketones,Urine TRACE (Negative); Leukocyte Esterase,Urine Negative (Negative); Nitrate,Urine Negative (Negative); Protein,Urine TRACE (Negative); Specific Gravity, Urine >= 1.030 (1.005-1.030)
[2024-07-14 01:19] LABS: Appearance,Urine Cloudy (Clear); Bilirubin,Urine 1+ (Negative); Color,Urine Dark Yellow (Yellow)
[2024-07-14 01:20] LABS: Bacteria,Urine 4+ /lpf; Squamous Epithelial Cell,Urine Occasional #/hpf (0-5)
[2024-07-14] MEDS: SULFA/TRIMETHOPRIM 1 TABLET 1 EACH PO (01:33)
--- NOTE | 2024-07-14 01:38 | PC.NURSE ---
IV removed; catheter tip intact; vital signs stable
--- NOTE | 2024-07-14 01:41 | PC.NURSE ---
Patient waiting on shady lawn to pickup
--- NOTE | 2024-07-14 01:46 | PC.NURSE ---
attempted to call [facility] for patient d/c. Could not get an answer.
--- NOTE | 2024-07-14 02:05 | PC.NURSE ---
Spoke to Summer at [facility]; they state they do not have a ride for patient and do not have money to pay for a cab
--- NOTE | 2024-07-14 07:13 | PC.NURSE ---
I called [facility] and spoke with Rosalia. 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
--- NOTE | 2024-07-14 07:25 | PC.NURSE ---
[facility] called to notify staff that charlie with [facility] will come to pick pt up and transport him back to [facility].
== END 2024-07-14 07:54 | disposition home or self-care (01) ==
PROVIDERS: Emergency Medicine; Emergency Provider Emergency Medicine; PCP Nurse Practitioner Acute Care
DX: N39.0 Urinary tract infection, site not specified (principal); R41.82 Altered mental status, unspecified
CPT/HCPCS: 70450; 71045; 80053; 80307; 81001; 82550; 82803; 83735; 84100; 84436; 84443; 85025; 87086; 87636; 93005; 99284

== ENCOUNTER 2024-12-22 15:14 | Outpatient (CLI) | payer MEDICAID, SELFPAY ==
--- OUTSIDE RECORDS SUMMARY | 2024-12-22 15:15 | XMS_ITS | Clinical Summary ---
Author Organization [facility] are Address [address] [place], [place] [id number] Phone Care Team Providers Care E Business Project Manager Name Role Phone Unavailable Unavailable Conditions or Problems No information available. Medications No information available. Medications Administered No information available. Allergies, Adverse Reactions, Alerts No information available. Results No information available. Plan of Care No information available. Procedures No information available. Vital Signs No information available. Immunizations No information available. Advance Directives No information available.
--- OUTSIDE RECORDS SUMMARY | 2024-12-22 15:16 | XMS_ITS | Clinical Summary ---
Author Organization Healthcare Address [address] [place] [address] Care Team Providers Care Deck Steward Name Role Phone Pcp, No Primary Care Provider Unavailabl e Family History Medical History Relation Name Comments Other cancer Other Relation Name Status Comments Other Social History Tobacco Use Types Packs/Day Years Used Date Smoking Tobacco: Never Assessed Sex and Gender Information Value Date Recorded Sex Assigned at Not on file Legal Sex Male 8:24 PM EDT Gender Identity Not on file Sexual Orientation Not on file Last Filed Vital Signs Vital Sign Reading Time Taken Comments Blood Pressure - - Pulse - - Temperature - - Respiratory Rate - - Oxygen Saturation - - Inhaled Oxygen Concentration - - Weight 91.2 kg (200 lb 15.9 oz) 04/10/2016 2:05 PM EST Height 152.4 cm (5') 04/10/2016 2:05 PM EST Body Mass Index 39.25 04/10/2016 2:05 PM EST Plan of Treatment Health Maintenance Due Date Last Done Comments [facility]-Depression Screening 1965 [facility]-/Child/Adol SDOH Screenings 1966 [facility]- SDOH Screenings 02/25/1984 [facility]Y-Adult SDOH Screenings 02/25/1984 UKY-DTaP,Tdap,and Td Vaccines (1 - Tdap) 1985 [facility]Y-Hepatitis B Vaccines (1 of 3 - 19+ 3-dose series) 1985 CT Colonography 2011 Colonoscopy 2011 FIT-DNA 2011 FIT 2011 FOBT 2011 Sigmoidoscopy 2011 UKY-Colorectal Cancer Screening 2011 UKY-Pneumococcal Vaccine: 50+ Years (1 of 1 - PCV) 02/25/2016 UKY-Zoster Vaccines (1 of 2) 02/25/2016 [id number] Vaccine ( season) 2024 03/12/2021, 06/10/2020, 05/20/2020 UKY-Influenza Vaccine (#1) 01/10/202503/14, 03/13/2020, 02/21/2017, Additional history exists [facility]Y-Hepatitis A Vaccines Aged Out 03/27/2018 No longer eligible based on patient's age to complete this topic HPV Vaccines Aged Out No longer eligi ble based on patient's age to complete this topic UKY-HIB Vaccines Aged Out No longer e ligible based on patient's age to complete this topic UKY-IPV Vaccines Aged Out No longer e ligible based on patient's age to complete this topic UKY-Rotavirus Vaccines Aged Out No lo nger eligible based on patient's age to complete this topic Insurance Care Teams Deck Steward Relationship Specialty Start [place] [address] PCP - General Family Medicine 12/31/21
--- OUTSIDE RECORDS SUMMARY | 2024-12-22 15:16 | XMS_ITS | Clinical Summary ---
Author Organization [facility]stem Address [address] [place] [address] Care Team Providers Care Ag Service Manager Name Role Phone Unavailable Primary Care Provider Unavailabl e Social History Tobacco Use Types Packs/Day Years Used Date Smoking Tobacco: Never Assessed Abuse Screen Answer Date Recorded Unsafe at Home or Work/School Not on file Feels Threatened by Someone? Not on file 01/2023 Does Anyone Keep You from Co ntacting Others or Doint Things Outside the Home? Not on file 02/17/2023 Physical Sign of Abuse Present Not on file 1 Housing Stability Answer Date Recorded Current Living Arrangements Not on file 01/2023 Potentially Unsafe Housing Conditions Not on padilla e 02/17/2023 Family and Community Support Answer Robert e Recorded Help with Day-to-Day Activities Not on file 02/17/2023 Lonely or Isolated Not on file 02/17/2023 Employment Answer Date Recorded Do you want help finding or keeping work or a domenico b? Not on file 02/17/2023 Disabilities Answer Date Recorded Concentrating, Remembering, or Making Decisions Difficulty Not on file 02/17/2023 Doing Errands Independently Difficulty Not on fi le 02/17/2023 Education Answer Date Recorded Help with school or training? Not on file Preferred Language Not on file 02/17/2023 Sex and Gender Information Value Date Recorded Sex Assigned at Not on file Legal Sex Male 8:35 PM EDT Gender Identity Not on file Sexual Orientation Not on file Last Filed Vital Signs Vital Sign Reading Time Taken Comments Blood Pressure 146/102 10/24/2014 1:53 PM EDT Pulse 76 10/24/2014 1:53 PM EDT Temperature 36.8 C (98.2 F) 10/24/2014 1:53 PM EDT Respiratory Rate - - Oxygen Saturation 96% 10/24/2014 1:53 PM EDT Inhaled Oxygen Concentration - - Weight 97.5 kg (214 lb 15.9 oz) 10/24/2014 1:53 PM EDT Height 165.1 cm (5' 5 ) 10/24/2014 1:53 PM EDT Body Mass Index 35.78 10/24/2014 1:53 PM EDT Plan of Treatment Health Maintenance Due Date Last Done Comments ANNUAL PHYSICAL 1965 HEPATITIS C SCREENING 1966 TDAP/TD VACCINES (1 - Tdap) 1985 COLOGUARD 2011 COLON CANCER SCREENING 5 YEAR SIGMOIDOSCOPY 2011 COLONOSCOPY [address] CANCER SCREENING [address] COLONOGRAPHY 2011 FECAL OCCULT BLOOD TEST 2011 FIT Testing (1 year) 2011 Pneumococcal Vaccine 50+ (1 of 1 - PCV) 02/25/2016 ZOSTER VACCINE (1 of 2) 02/25/2016 COVID-19 Vaccine (1 - season) 2024 INFLUENZA VACCINE 02/09/2025
--- OUTSIDE RECORDS SUMMARY | 2024-12-22 15:16 | XMS_ITS ---
Author Organization [facility] Care Team Providers Care Geriatric Physical Therapist Name Role Phone Woodrow Perez Unavailable Unavailable Allergies and adverse reactions No Known Allergies Care Team Name Role Address Phone Organization Dates Woodrow Perez PCP [address], [place], [address], [place] (Office): : [facility] 04/24/2022 - 05/24/2022 Goals Section Goals Description Status Target Date Goal is slow, gradual weight loss, 1-4#/month, closer to IBWR, with average po of 50% or greater. Free from chewing problems. Intact, non-reddened skin. Active 08/06/2022 Porfirio will maintain current level of decision making ability AEB: appropriate choices - by review date. Active 08/06/2022 Porfirio will be able to commu nicate an understanding of the discharge plan and describe the desired outcome of rehab - by the review date. Active 08/06/2022 Porfirio will be free of falls - through the review date. Active 08/06/2022 Porfirio will have stable mood state AEB: positive outlook, calm appearance, no s/sx of depression, anxiety or sadness - through the review date. Active 08/06/2022 Porfirio will improve current level of function in: - Dressing, continence and Personal Hygiene, ADL function - through the review date. AEB: dressing self independently, improving continence by getting to bathroom with min assist, and complete ADLs with standby assist Active 08/06/2022 Porfirio will maintain normal breathing pattern as evidenced by normal respirations, normal skin color, and regular respiratory rate/pattern - through the review date. Active 08/06/2022 Porfirio will receive daily op portunities for social contact - through the review date. Active 08/06/2022 Porfirio will remain free of c omplications related to immobility, including contractures, thrombus formation, fall related injury through the next review date. Active 08/06/2022 Porfirio's stage I will be healed by review date. Active 08/06/2022 Bettina will maintain optimal quality of life within limitation imposed by visual function through the review date. Active Resident and Family's wishes will be honored. Ac tive 08/06/2022 Immunizations Immunization Status Vaccine Details Vaccine Code CodeSystem Date Notes Pneumovax Dose 1 completed Pneumococcal conjugate vaccine 15-valent (PCV15), polysaccharide [id number] conjugate, adjuvant, preservative free lotNumber: [id number] expiry: 12/10/2022 Mfg: Wyeth Pharm Given 0.5 ml Right Deltoid intramuscularly 215 CVX created date: 2 consent date: 2 administe red date: 2 pneumococcal 20 given. TB 1 Step Mantoux (PPD) completed tuberculin skin test; unspecified formulation expiry: 12/10/2022 Mfg: sanfoi past unli Given 0.1 ml Right Forearm intradermally 98 CVX created date: 2 consent date: 2 administe red date: 2 TB 2 Step Mantoux Skin Test completed tuberculin skin test; unspecified formulation lotNumber: [id number] expiry: 10/12/2022 Mfg: Sandfi-pasteur Given 0.1 ml Left Forearm intradermally Step 1 of Multi-step 98 CVX created date: 2 consent date: 2 administe red date: 2 1st dose Pfizer-[employer] COVID-19 Vaccine completed SARS-COV-2 (COVID-19) vaccine, mRNA, spike protein, LNP, preservative free, 30 mcg/0.3mL dose Given intramuscularly 208 CVX created date: 3 administe red date: 1 Given at [facility] 2nd dose Pfizer-BioNTech COVID-19 Vaccine completed SARS-COV-2 (COVID-19) vaccine, mRNA, spike protein, LNP, preservative free, 30 mcg/0.3mL dose Given intramuscularly 208 CVX created date: 3 administe red date: 1 health department SUSY. 3rd dose [employer] COVID-19 Vaccine completed SARS-COV-2 (COVID-19) vaccine, mRNA, spike protein, LNP, preservative free, 30 mcg/0.3mL dose Given intramuscularly 208 CVX created date: 3 administe red date: 1 Given at [facility] department Influenza High Dose completed Influenza, high-dose, split virus, quadrivalent, injectable, preservative free Given 0.5 ml intramuscularly 197 CVX created date: 2 administe red date: 2 given at clinic Pharmacy. Mental Status Section Date Assessment Total Score Description 05/24/2022 BIMS 15 cognitively int act CAM 0 No delirium ind icated PHQ-9 00 05/01/2022 BIMS 15 cognitively int act CAM 0 No delirium ind icated PHQ-9 06 mild depression Problems Problem # Description Date of onset Resolved Date Code CodeSystem Concern Status 1 ACUTE RESPIRATORY FAILURE WITH HYPOXIA [address] active 2 BIPOLAR DISORDER, CURRENT EPISODE MIXED, MILD [address] active 3 BLINDNESS, ONE EYE, UNSPECIFIED EYE [address] active 4 EPILEPSY, UNSPECIFIED, NOT INTRACTABLE, WITHOUT STATUS EPILEPTICUS [address] active 5 ESSENTIAL (PRIMARY) HYPERTENSION [address] active 6 INFLUENZA DUE TO IDENTIFIED NOVEL INFLUENZA A VIRUS WITH OTHER RESPIRATORY MANIFESTATIONS [address] active 7 MAJOR DEPRESSIVE DISORDER, RECURRENT, MILD [address] active 8 PNEUMONIA, UNSPECIFIED ORGANISM [address] active 9 UNSPECIFIED DEMENTIA, UNSPECIFIED SEVERITY, WITHOUT BEHAVIORAL DISTURBANCE, PSYCHOTIC DISTURBANCE, MOOD DISTURBANCE, AND ANXIETY [address] active Reason for Referral No Reasons for Referral Entered Social History Social History Observation Description Start Date End Date Code Code System Current Smoking Status Tobacco smoking consumption unknown 376116097 SNOMED CT Sex Assigned At Male 1965 38992-7 [facility] Gender Identity Male 18087727113239 [address] Vital Signs Code Code System Vitals Name Values and Units Timing Information 9279-1 [facility] Respiratory Rate Value=18.0 Units=/m in 05/23/2022 8462-4 [facility] Blood Pressure-Diastolic Value=72 Un its=mmHg 05/23/2022 8480-6 [facility] Blood Pressure-Systolic Bwddv=209 Un its=mmHg 05/23/2022 8310-5 [facility] Body Temperature Value=97.8 Units= F 05/23/2022 8867-4 [facility] Heart rate Value=72.0 Units=/min 04/2023 70898-6 [facility] O2 % BldC Oximetry Value=96.0 Units= % 05/23/2022 89859-9 INC Weight Ohdoz=184.2 Units=Lbs 01/2023 07907-4 [facility] Pain Level Value=0.0 05/09/2022 8302-2 LOINC Height Value=64.0 Units=Inches 04/24/2022
== END 2024-12-22 23:59 | disposition home or self-care (01) ==
LOC: RAD 15:14
PROVIDERS: PCP Nurse Practitioner Acute Care; Visit Provider Specialist
DX: R69 Illness, unspecified (principal)

== ENCOUNTER 2025-01-03 09:20 | Outpatient (CLI) | payer MEDICAID, SELFPAY ==
--- NOTE | 2025-01-03 09:45 | CT_ITS ---
FINAL REPORT TECHNIQUE: Thin section axial images were obtained from skull base to vertex without contrast. Coronal reconstruction images were obtained from the axial data. Exam was performed using dose reduction techniques such as automated exposure control, adjustment of the mA and kV according to patient size, and use of iterative reconstruction technique. CLINICAL HISTORY: Seizures/headache COMPARISON: 07/14/2024 FINDINGS: There is no mass effect or midline shift. There is no hydrocephalus. There is no intracranial hemorrhage. The posterior fossa is without acute abnormality. The basilar cisterns are preserved. There is mild mucoperiosteal thickening of the left maxillary and left ethmoid air cells. No air-fluid levels are identified. No acute osseous abnormality is identified. IMPRESSION: No acute intracranial abnormality. Reviewed, Interpreted and Dictated by Cate Bahena MD Transcribed by Melly Garcia Authenticated and [facility]
--- OUTSIDE RECORDS SUMMARY | 2025-01-03 10:03 | XMS_ITS | Clinical Summary ---
Author Organization [facility] ystem Address [address] [place] [address] Care Team Providers Care Banking Officer Name Role Phone Unavailable Primary Care Provider [...]
--- OUTSIDE RECORDS SUMMARY | 2025-01-03 10:03 | XMS_ITS | Clinical Summary ---
Author Organization Healthcare Address [address] [place] [address] Care Team Providers Care Geographic Analyst Name Role Phone Pcp, No Primary Care [...] 02/25/2016 [facility]Y-Zoster Vaccines (1 of 2) 02/25/2016 [id number] Vaccine ( season) 2024 03/12/2021, 06/10/2020, 05/20/2020 [...] to complete this topic Insurance Care Teams Geographic Analyst Relationship Specialty Start [place] [address] PCP - General Family Medicine 12/31/21
--- OUTSIDE RECORDS SUMMARY | 2025-01-03 10:03 | XMS_ITS ---
Author Organization [facility] Care Team Providers Care Airport Ramp Attendant Name Role Phone Woodrow Perez Unavailable Unavailable Allergies and adverse reactions No Known Allergies Care Team Name Role Address Phone Organization Dates Woodrow Perez PCP [address], [place], [address], [place] (Office): : [facility] 04/24/2022 - 05/24/2022 Goals [...] completed Pneumococcal conjugate vaccine 15-valent (PCV15), polysaccharide [id number] conjugate, adjuvant, preservative free lotNumber: [id number] expiry: 12/10/2022 Mfg: Wyeth Pharm Given 0.5 [...] completed tuberculin skin test; unspecified formulation lotNumber: [id number] expiry: 10/12/2022 Mfg: Sandfi-pasteur Given 0.1 ml Left Forearm intradermally Step 1 of Multi-step 98 CVX created date: 2 consent date: 2 administe red date: 2 1st dose Pfizer-[employer] COVID-19 Vaccine completed SARS-COV-2 (COVID-19) vaccine, mRNA, spike protein, LNP, preservative free, 30 mcg/0.3mL dose Given intramuscularly 208 CVX created date: 3 administe red date: 1 Given at [facility] 2nd dose Pfizer-BioNTech COVID-19 Vaccine completed SARS-COV-2 (COVID-19) vaccine, mRNA, spike protein, LNP, preservative free, 30 mcg/0.3mL dose Given intramuscularly 208 CVX created date: 3 administe red date: 1 health department SUSY. 3rd dose [employer] COVID-19 Vaccine completed SARS-COV-2 (COVID-19) vaccine, mRNA, spike protein, LNP, preservative free, 30 mcg/0.3mL dose Given intramuscularly 208 CVX created date: 3 administe red date: 1 Given at [facility] department Influenza High Dose completed Influenza, high-dose, [...] 1 ACUTE RESPIRATORY FAILURE WITH HYPOXIA [address] active 2 BIPOLAR DISORDER, CURRENT EPISODE MIXED, MILD [address] active 3 BLINDNESS, ONE EYE, UNSPECIFIED EYE [address] active 4 EPILEPSY, UNSPECIFIED, NOT INTRACTABLE, WITHOUT STATUS EPILEPTICUS [address] active 5 ESSENTIAL (PRIMARY) HYPERTENSION [address] active 6 INFLUENZA DUE TO IDENTIFIED NOVEL INFLUENZA A VIRUS WITH OTHER RESPIRATORY MANIFESTATIONS [address] active 7 MAJOR DEPRESSIVE DISORDER, RECURRENT, MILD [address] active 8 PNEUMONIA, UNSPECIFIED ORGANISM [address] active 9 UNSPECIFIED DEMENTIA, UNSPECIFIED SEVERITY, WITHOUT BEHAVIORAL DISTURBANCE, PSYCHOTIC DISTURBANCE, MOOD DISTURBANCE, AND ANXIETY [address] active Reason for Referral No Reasons for Referral Entered Social History Social History Observation Description Start Date End Date Code Code System Current Smoking Status Tobacco smoking consumption unknown 256511336 SNOMED CT Sex Assigned At Male 1965 66458-9 [facility] Gender Identity Male 69072283253461 [address] Vital Signs Code Code System Vitals Name Values and Units Timing Information 9279-1 [facility] Respiratory Rate Value=18.0 Units=/m in 05/23/2022 8462-4 [facility] Blood Pressure-Diastolic Value=72 Un its=mmHg 05/23/2022 8480-6 [facility] Blood Pressure-Systolic Tmuui=688 Un its=mmHg 05/23/2022 8310-5 [facility] Body Temperature Value=97.8 Units= F 05/23/2022 8867-4 [facility] Heart rate Value=72.0 Units=/min 04/2023 09378-2 [facility] O2 % BldC Oximetry Value=96.0 Units= % 05/23/2022 05330-0 INC Weight Nhwps=184.2 Units=Lbs 01/2023 28418-4 [facility] Pain Level Value=0.0 05/09/2022 8302-2 LOINC Height Value=64.0 Units=Inches 04/24/2022
== END 2025-01-03 23:59 | disposition home or self-care (01) ==
LOC: RAD 09:21
PROVIDERS: PCP Nurse Practitioner Family; Visit Provider Specialist
DX: R56.9 Unspecified convulsions (principal); R51.9 Headache, unspecified; G89.29 Other chronic pain; G93.9 Disorder of brain, unspecified
CPT/HCPCS: 70450

== ENCOUNTER 2025-01-12 21:25 | Emergency (ER) | payer MEDICAID, SELFPAY ==
[2025-01-12 21:26] VITALS: BP 157/97; PULSE 105; RESP 16; TEMP 36.9; O2SAT 95; BMI 38.2
--- NOTE | 2025-01-12 21:27 | CT_ITS ---
PROCEDURE INFORMATION: Exam: CT Head Without Contrast Exam date and time: 01/12/2025 9:53 PM Age: 59 years old Clinical indication: Altered mental status/memory loss; Additional info: AMS TECHNIQUE: Imaging protocol: Computed tomography of the head without contrast. Radiation optimization: All CT scans at this facility use at least one of these dose optimization techniques: automated exposure control; mA and/or kV adjustment per patient size (includes targeted exams where dose is matched to clinical indication); or iterative reconstruction. COMPARISON: CT HEAD/BRAIN WO CON 01/03/2025 9:31 AM FINDINGS: Limitations: Patient motion. Brain: No definite acute intracranial hemorrhage. No midline shift or significant intracranial mass effect. Cerebral ventricles: No hydrocephalus. Paranasal sinuses: Mild paranasal sinus disease. Mastoid air cells: Visualized mastoid air cells are well aerated. Bones: Unremarkable. No acute fracture. Soft tissues: Unremarkable. IMPRESSION: No acute intracranial abnormality.
--- NOTE | 2025-01-12 21:27 | XR_ITS ---
PROCEDURE INFORMATION: Exam: XR Chest Exam date and time: 01/12/2025 9:46 PM Age: 59 years old Clinical indication: Other: AMS TECHNIQUE: Imaging protocol: Radiologic exam of the chest. Views: 1 view. COMPARISON: CR XR CHEST PORTABLE 07/13/2024 10:08 PM FINDINGS: Lungs: No consolidation. Minor right basilar atelectasis. Pleural spaces: Unremarkable. No pleural effusion. No pneumothorax. Heart/Mediastinum: Stable cardiac silhouette. Bones/joints: Degenerative change involving the spine. IMPRESSION: No acute cardiopulmonary process.
--- OUTSIDE RECORDS SUMMARY | 2025-01-12 21:28 | XMS_ITS | Clinical Summary ---
Author Organization Healthcare Address [address] [place] [address] Care Team Providers Care Manager Maintenance Name Role Phone Pcp, No Primary Care [...] Date Last Done Comments [facility]Y-Depression Screening 1965 [facility]-Infant/Child/Adol SDOH Screenings 1965 [facility]- SDOH Screenings 02/25/1984 [facility]Y-Adult SDOH Screenings 02/25/1984 [facility]Y-DTaP,Tdap,and Td Vaccines (1 - Tdap) 1985 [facility]-Hepatitis B Vaccines (1 of 3 - 19+ 3-dose series) 1985 CT Colonography 2011 Colonoscopy 2011 FIT-DNA 2011 FIT 2011 FOBT 2011 Sigmoidoscopy 2011 UKY-Colorectal Cancer Screening 2011 UKY-Pneumococcal Vaccine: 50+ Years (1 of 1 - PCV) 02/25/2016 [facility]Y-Zoster Vaccines (1 of 2) 02/25/2016 [id number] Vaccine ( season) 2024 03/12/2021, 06/10/2020, 05/20/2020 [...] to complete this topic Insurance Care Teams Manager Maintenance Relationship Specialty Start Date [place] [address] PCP - General Family Medicine 12/31/21
--- OUTSIDE RECORDS SUMMARY | 2025-01-12 21:28 | XMS_ITS ---
Author Organization [facility] Care Team Providers Care Pellet Preparation Operator Name Role Phone Woodrow Perez Unavailable Unavailable Allergies and adverse reactions No Known Allergies Care Team Name Role Address Phone Organization Dates Woodrow Perez PCP [address], [place], [address], [place] (Office): : [facility] 04/24/2022 - 05/24/2022 Goals [...] completed Pneumococcal conjugate vaccine 15-valent (PCV15), polysaccharide [id number] conjugate, adjuvant, preservative free lotNumber: [id number] expiry: 12/10/2022 Mfg: Wyeth Pharm Given 0.5 [...] completed tuberculin skin test; unspecified formulation lotNumber: [id number] expiry: 10/12/2022 Mfg: Sandfi-pasteur Given 0.1 ml Left Forearm intradermally Step 1 of Multi-step 98 CVX created date: 2 consent date: 2 administe red date: 2 1st dose Pfizer-zkipster COVID-19 Vaccine completed SARS-COV-2 (COVID-19) vaccine, mRNA, spike protein, LNP, preservative free, 30 mcg/0.3mL dose Given intramuscularly 208 CVX created date: 3 administe red date: 1 Given at [facility] 2nd dose Pfizer-BioNTech COVID-19 Vaccine completed SARS-COV-2 (COVID-19) vaccine, mRNA, spike protein, LNP, preservative free, 30 mcg/0.3mL dose Given intramuscularly 208 CVX created date: 3 administe red date: 1 health department SUSY. 3rd dose [employer] COVID-19 Vaccine completed SARS-COV-2 (COVID-19) vaccine, mRNA, spike protein, LNP, preservative free, 30 mcg/0.3mL dose Given intramuscularly 208 CVX created date: 3 administe red date: 1 Given at [facility] department Influenza High Dose completed Influenza, high-dose, [...] 1 ACUTE RESPIRATORY FAILURE WITH HYPOXIA [address] active 2 BIPOLAR DISORDER, CURRENT EPISODE MIXED, MILD [address] active 3 BLINDNESS, ONE EYE, UNSPECIFIED EYE [address] active 4 EPILEPSY, UNSPECIFIED, NOT INTRACTABLE, WITHOUT STATUS EPILEPTICUS [address] active 5 ESSENTIAL (PRIMARY) HYPERTENSION [address] active 6 INFLUENZA DUE TO IDENTIFIED NOVEL INFLUENZA A VIRUS WITH OTHER RESPIRATORY MANIFESTATIONS [address] active 7 MAJOR DEPRESSIVE DISORDER, RECURRENT, MILD [address] active 8 PNEUMONIA, UNSPECIFIED ORGANISM [address] active 9 UNSPECIFIED DEMENTIA, UNSPECIFIED SEVERITY, WITHOUT BEHAVIORAL DISTURBANCE, PSYCHOTIC DISTURBANCE, MOOD DISTURBANCE, AND ANXIETY [address] active Reason for Referral No Reasons for Referral Entered Social History Social History Observation Description Start Date End Date Code Code System Current Smoking Status Tobacco smoking consumption unknown 880700275 SNOMED CT Sex Assigned At Male 1965 [address]6419-[address] [facility] Gender Identity Male 90814163925840 [address] Vital Signs Code Code System Vitals Name Values and Units Timing Information 9279-[address] [facility] Respiratory Rate Value=18.0 Units=/m in 05/23/2022 8462-[address] [facility] Blood Pressure-Diastolic Value=72 Un its=mmHg 05/23/2022 8480-[address] [facility] Blood Pressure-Systolic Fahfi=267 Un its=mmHg 05/23/2022 8310-[address] [facility] Body Temperature Value=97.8 Units= F 05/23/2022 8867-[address] [facility] Heart rate Value=72.0 Units=/min 04/2023 55472-[address] [facility] O2 % BldC Oximetry Value=96.0 Units= % 05/23/2022 40600-3 INC Weight Oumsh=852.2 Units=Lbs 01/2023 70554-[address] [facility] Pain Level Value=0.0 05/09/2022 8302-2 [facility] Height Value=64.0 Units=Inches 04/24/2022
--- OUTSIDE RECORDS SUMMARY | 2025-01-12 21:28 | XMS_ITS | Clinical Summary ---
Author Organization [facility] y[facility] Address [address] [place] [address] Care Team Providers Care Cafeteria Server Name Role Phone Unavailable Primary Care Provider [...]
--- NOTE | 2025-01-12 21:36 | HMH.EDGENADL ---
Discharge Plan Disposition Patient Disposition: Home, Self-Care Prescriptions Prescriptions: No Action cholecalciferol (vitamin D3) 50 mcg (2,000 unit) tablet 50 mcg PO WEEKLY lysine HCl 500 mg tablet 500 mg PO DAILY ibuprofen 200 mg tablet 200 mg PO Q6H PRN aripiprazole 20 mg tablet 20 mg PO DAILY njiyhstrwriepyh-RJ-brxxchyagfk 30-15-200 mg/5 mL solution 10 ml PO QID PRN Nurtec ODT 75 mg tablet,disintegrating 75 mg PO ONCE PRN (Reason: Migraine) Qty: 8 5RF benztropine 1 mg tablet 1 mg PO DAILY Qty: 30 0RF diltiazem HCl 180 mg capsule,extended release 24hr 180 mg PO DAILY Qty: 30 0RF pantoprazole 20 mg tablet,delayed release (DR/EC) 20 mg PO DAILY Qty: 30 0RF donepezil [Aricept] 5 mg tablet 5 mg PO DAILY Qty: 30 0RF phenytoin sodium extended 100 mg capsule 100 mg PO TID Qty: 90 0RF albuterol sulfate 1.25 mg/3 mL solution for nebulization 1.25 mg INHALATION QID Qty: 90 0RF loperamide 2 mg capsule 2 mg PO Q6H PRN (Reason: Diarrhea) Qty: 120 0RF acetaminophen 325 mg tablet 650 mg PO Q4HP PRN (Reason: Fever) Qty: 60 0RF phenobarbital 32.4 mg tablet 32.4 mg PO BID 30 Days Qty: 60 5RF clonazepam 0.5 mg tablet 0.5 mg PO TID Qty: 90 2RF Referrals Follow up/Referrals: Provider,Referral, MD [Primary Care Provider, Medical] - See instructions Activity Restrictions/Add. Instructions Additional Instructions/Restrictions: If you develop any new or worsening symptoms, or if you become concerned for your health for any reason, return to the emergency department for evaluation Clinical Impressions Clinical Impression: AMS (altered mental status) Print Language Print Language: Russian Discharge ED Provider: Eliud Wilson General Adult HPI <Eliud Wilson MD - Last Filed: 01/13/25 03:07> General Chief complaint: Weakness Stated complaint: AMS Time Seen by Provider: 01/12/25 21:28 History of Present Illness HPI narrative: Porfirio Lockwood is a 59y male with a history of bipolar disorder, seizures, blindness, anxiety, depression who presents to the emergency department via EMS for concern for altered mental status. Reportedly, patient's roommate last saw him normal this morning but they thought he was slightly altered when they went to give him his evening medications. Per EMS, patient remained stable and route. Patient has no complaints at this time. He is alert and oriented, answering questions appropriately but is mildly slow to respond to questions. Patient does not believe he has had a seizure today. He states that he is urinating and having normal bowel movements. He denies any chest pain or shortness of breath. He denies any headache. Patient does not believe he has missed any doses of his seizure medication. Related Data Home Medications ?Medication ?Instructions ?Recorded ?Confirmed aripiprazole 20 mg tablet 20 mg PO DAILY 11/29/24 12/30/24 cholecalciferol (vitamin D3) 50 50 mcg PO WEEKLY 11/29/24 12/30/24 mcg (2,000 unit) tablet ibuprofen 200 mg tablet 200 mg PO Q6H PRN 11/29/24 12/30/24 lysine HCl 500 mg tablet 500 mg PO DAILY 11/29/24 12/30/24 whsnevvoaoeuyln-CY-hgilumjvkon 30 10 ml PO QID PRN 11/29/24 12/30/24 mg-15 mg-200 mg/5 mL oral solution Previous Rx's ?Medication ?Instructions ?Recorded acetaminophen 325 mg tablet 650 mg (2 x 325 mg) PO Q4HP PRN 08/08/22 Fever #60 tabs albuterol sulfate 1.25 mg/3 mL 1.25 mg (3 mL) inhalation QID 08/08/22 solution for nebulization Breathing problems #90 mL benztropine 1 mg tablet 1 mg PO DAILY MOOD #30 tabs 08/08/22 diltiazem HCl 180 mg 180 mg PO DAILY HEART RATE #30 caps 08/08/22 capsule,extended release 24 hr donepezil 5 mg tablet (Aricept) 5 mg PO DAILY #30 tabs 08/08/22 loperamide 2 mg capsule 2 mg PO Q6H PRN Diarrhea #120 caps 08/08/22 pantoprazole 20 mg tablet,delayed 20 mg PO DAILY GERD #30 tabs 08/08/22 release phenytoin sodium extended 100 mg 100 mg PO TID seizures #90 caps 08/08/22 capsule phenobarbital 32.4 mg tablet 32.4 mg PO BID seizures 30 days 03/04/23 #60 tabs clonazepam 0.5 mg tablet 0.5 mg PO TID #90 tabs 03/06/23 rimegepant 75 mg disintegrating 75 mg PO ONCE PRN Migraine #8 tabs 11/29/24 tablet (Nurtec ODT) Allergies Allergy/AdvReac Type Severity Reaction Status Date / Time No Known Allergies Allergy Verified 12/30/24 10:48 [facility] <Eliud Wilson MD - Last Filed: 01/13/25 03:07> [facility] Disclaimer: The information contained in this section may have been updated after the patient was seen, as this information can be updated by other users. Medical History Nocturnal hypoxemia History of atypical migraine History of diabetes as a child History of depression History of anxiety Legally blind BMI 37.0-37.9, adult Bipolar disorder Seizure disorder Surgical History History of ankle surgery H/O colonoscopy S/P bronchoscopy with biopsy Family History Mother No problems noted. Father No problems noted. Other Asthma Diabetes FHx: mental illness Social History Smoking Status: Smoker, status unknown tobacco type: cigarettes packs per day: 1 second hand exposure: No alcohol intake: never substance use type: marijuana current occupational status: disabled Travel in the last 8 weeks?: None household members: other housing: assisted living facility marital status: single current occupational exposures/hazards: No caffeine: Yes Have you lived/traveled outside [place] in past 30 days?: No Contact w/someone who lives/traveled outside US past 30 days?: No Exposure to someone with infectious disease in past 14 days?: No Do you have a fever (greater than 100.4 F or 38 C)?: No Have you tested positive for COVID-19?: No Exposed to someone with COVID-19 in past 14 days?: No Do you have a sore throat?: No Do you have a cough?: No Do you have any weakness?: No Do you have any diarrhea?: No Are you experiencing any unusual bleeding?: No Do you have any muscle aches/pain?: No Do you have any abdominal pain?: No Are you experiencing loss of taste or smell?: No Other Medical History Have you received the Flu Vaccine for this season: No Have you received the Pneumonia Vaccine: No <Eliud Wilson MD - Last Filed: 01/13/25 03:07> ROS Obtained: Yes Systems reviewed as appropriate & no additional complaints except as documented Physical Exam <Eliud Wilson MD - Last Filed: 01/13/25 03:07> General General appearance: alert and in no apparent distress Head Head exam: atraumatic Eye Eye exam: Present normal appearance ENT ENT exam: Present normal external ear exam and other (Repetitive tongue smacking) Neck Neck exam: Present full ROM Chest Chest inspection: Present symmetric chest wall rise Respiratory Respiratory exam: Present normal lung sounds bilaterally; Absent respiratory distress, wheezes or stridor Cardiovascular Cardiovascular exam: Present regular rate and normal rhythm Abdominal Exam Abdominal exam: Present soft; Absent distention, tenderness or guarding exam: Present deferred Extremities Exam Extremities exam: Present normal inspection Back Exam Back exam: Present normal inspection Neurological Exam Neurological exam: Present alert, oriented X3 and other (No focal neurological deficit. Answers questions appropriately, sometimes slow to answer questions) Psychiatric Psychiatric exam: Present normal affect Skin Skin exam: Present warm and dry Medical Decision Making <Eliud Wilson MD - Last Filed: 01/13/25 03:07> Medical Records Screening: Per USPSTF and CDC recommendations, given the prevalence of disease in our region, it is our hospital?s policy to screen for HIV and viral Hepatitis for all patients aged 18 and over and those with ongoing risk factors. Mamadou Inquiry Pt receiving controlled substance: No Vital Signs: 01/12/25 21:26 01/12/25 21:54 01/12/25 22:00 Temperature 98.4 F Temperature Source Oral Pulse Rate 99 H 98 H Pulse Rate [Left] 105 H Respiratory Rate 16 Blood Pressure 159/100 H 148/97 H Blood Pressure [Right Arm] 157/97 H Blood Pressure Mean 113 122 Blood Pressure Mean [Right Arm] 117 Blood Pressure Source [Right Arm] Automatic Cuff 02 Sat by Pulse Oximetry 95 96 96 Oxygen Delivery Method Room Air 01/12/25 22:30 01/13/25 00:43 01/13/25 01:51 Temperature 98.6 F 98.9 F Temperature Source Oral Pulse Rate 91 H 91 H 89 Pulse Rate [Left] Respiratory Rate 16 16 Blood Pressure 166/90 H 166/90 H 161/99 H Blood Pressure [Right Arm] Blood Pressure Mean 115 Blood Pressure Mean [Right Arm] Blood Pressure Source [Right Arm] 02 Sat by Pulse Oximetry 96 97 Oxygen Delivery Method Room Air Room Air Lab Data Lab Results 01/12/25 22:05: WBC 6.0, RBC 5.28, Hgb 16.3, Hct 47.9, MCV 90.7, MCH 30.9, MCHC 34.0, RDW 13.0, Plt Count 207, MPV 10.0, Neut % (Auto) 71.8, Lymph % (Auto) 14.8, Scott % (Auto) 11.8 H, Eos % (Auto) 0.7, Baso % (Auto) 0.7, Neut # (Auto) 4.3, Lymph # (Auto) 0.9, Scott # (Auto) 0.7, Eos # (Auto) 0.0, Baso # (Auto) 0.0, VBG pH 7.36, VBG pCO2 44.5, VBG pO2 49.6 H, VBG HCO3 24.5, VBG Total CO2 25.9, VBG O2 Saturation 85.4 H, VBG Base Excess -0.9, VBG Lactic Acid 1.7, Sodium 142, Potassium 3.7, Chloride 104, Carbon Dioxide 22, Anion Gap 19.7 H, BUN 15, Creatinine 0.90, Estimated Creat Clear 132, Estimated GFR 87, Est GFR ( Amer) 105, Glucose 99, Calcium 10.2, Phosphorus 3.1, Magnesium 1.8, Total Bilirubin 0.7, AST 40, ALT 49, Alkaline Phosphatase 111, Total Creatine Kinase 66, Total Protein 8.4 H, Albumin 5.1 H, Globulin 3.3 H, Albumin/Globulin Ratio 1.5, TSH 0.82, Free T4 1.57 01/12/25 22:45: SARS-CoV-2 (PCR) Not detected, Influenza A Untype (PCR) Not detected, Influenza Type B (PCR) Not detected 01/12/25 22:46: Urine Color Yellow, Urine Appearance Clear, Urine pH 6.0, Ur Specific Celeste >= 1.030, Urine Protein 1+ A, Urine Glucose (UA) Negative, Urine Ketones 3+, Urine Blood Negative, Urine Nitrate Negative, Urine Bilirubin 2+ A, Urine Urobilinogen 0.2, Ur Leukocyte Esterase Negative, Urine RBC None, Urine WBC Occasional, Ur Squamous Epith Cells Occasional, Urine Bacteria 1+, Urine Opiates Screen Negative, Urine Methadone Screen Negative, Ur Barbituates Screen Positive H, Ur Phencyclidine Scrn Negative, Ur Amphetamines Screen Negative, U Benzodiazepines Scrn Negative, Urine Cocaine Screen Negative, U Marijuana (THC) Screen Negative 01/12/25 22:05 01/12/25 22:05 Orders (Tests/Meds): ORDERS Category Date Time Status CT head/brain wo con Stat Cat Scan 01/12/25 21:27 Completed CXR --portable [XR chest portable] Stat Exams 01/12/25 21:27 Completed CBC w/Auto Diff [Complete Blood Count Auto Diff] Stat Lab 01/12/25 22:05 Completed CK [Creatine Kinase] Stat Lab 01/12/25 22:05 Completed CMP [Comprehensive Metabolic Panel] Stat Lab 01/12/25 22:05 Completed Free T4 (Free Thyroxine) Stat Lab 01/12/25 22:05 Completed Magnesium Stat Lab 01/12/25 22:05 Completed PHOS [Phosphorous] Stat Lab 01/12/25 22:05 Completed Rapid PCR Covid and Flu A/B Stat Lab 01/12/25 22:45 Completed TSH [Thyroid Stimulating Hormone] Stat Lab 01/12/25 22:05 Completed UA [Urinalysis and Microscopic] Stat Lab 01/12/25 22:46 Completed UDS [Drug Screen,Urine] Stat Lab 01/12/25 22:46 Completed Urine Culture Stat Micro 01/12/25 22:46 Completed VBG [Venous Blood Gas] Stat RT 01/12/25 22:05 Completed Medical Decision Narrative: Porfirio Lockwood is a 59y male with a history of bipolar disorder, seizures, blindness, anxiety, depression who presents to the emergency department via EMS for concern for altered mental status. Reportedly, patient's roommate last saw him normal this morning but they thought he was slightly altered when they went to give him his evening medications. Per EMS, patient remained stable and route. Patient has no complaints at this time. He is alert and oriented, answering questions appropriately but is mildly slow to respond to questions. Patient does not believe he has had a seizure today. He states that he is urinating and having normal bowel movements. He denies any chest pain or shortness of breath. He denies any headache. Patient does not believe he has missed any doses of his seizure medication. On arrival, patient blood pressure 157/97, borderline tachycardic with heart rate of 105 on arrival., Afebrile, breathing comfortably on room air with oxygen saturation 95% SpO2. Physical exam, stated above, reveals an overall well and nontoxic appearing male in no distress. He is legally blind. He is alert and answering questions appropriately. He is slow to respond to some questions but is completely alert and oriented. He has no focal neurological deficits. Cardiopulmonary exams unremarkable. Abdomen is soft, nontender nondistended. He does have repetitive tongue smacking consistent with tongue smacking, which appears to be patient's baseline. Physical exam is otherwise grossly unremarkable. Differential diagnosis includes, but is not limited to: Seizure, electrolyte derangement, intracranial hemorrhage, metabolic derangement, pneumonia, urinary tract infection, metabolic encephalopathy, among others. The most morbid conditions were considered and workup was based on these. Workup in the emergency department included: CT head without contrast, chest x-ray, lactate, urinalysis, CK, TSH/free T4, magnesium level, VBG, CBC with differential, CMP, phosphorus level, rapid COVID/flu test, UDS Patient's workup shows no leukocytosis, VBG grossly unremarkable nonactionable with normal lactate at 1.7. Electrolytes within normal limits. Patient's anion gap is elevated at 19.7. Liver enzymes and bilirubin within normal limits. CK normal at 66. Thyroid studies within normal limits. Urinalysis with 2+ bilirubin and 1+ protein but otherwise no evidence of infection or hematuria. UDS positive for barbiturates, however, patient is prescribed phenobarbital and this is to be expected. Negative flu and COVID testing. Chest x-ray interpreted by me personally. No focal consolidation, no pneumothorax, no widened mediastinum, no enlargement of the cardiac silhouette. Unremarkable chest x-ray. See radiology report for details. CT head interpreted by me personally. No acute intracranial hemorrhage, mass or midline shift. No other acute findings. See radiology report for details. Patient is known to this emergency department and appears to be at his baseline mental status. Given this, is felt that he is appropriate for discharge back to [facility]. Patient was discharged, awaiting transport at this time. Patient's care was handed off to the oncoming physician, Dr. Quevedo. Quevedo: Patient remained in the ER for an extended period of time after being discharged by the previous provider to due to transportation problems unfortunately [facility] refused to transport the patient back to the facility because he is a [facility] of the [facility]. There was no other transportation available at this time. He remained in the ER. He has stayed stable, comfortable, he did not want anything to eat but is tolerating oral intake of fluids. He was well-appearing. Eventually patient was able to go with the [facility] and left the ER in stable condition. <Radha Quevedo MD - Last Filed: 01/16/25 02:37> Vital Signs: 01/12/25 21:26 01/12/25 21:54 01/12/25 22:00 Temperature 98.4 F Temperature Source Oral Pulse Rate 99 H 98 H Pulse Rate [Left] 105 H Respiratory Rate 16 Blood Pressure 159/100 H 148/97 H Blood Pressure [Right Arm] 157/97 H Blood Pressure Mean 113 122 Blood Pressure Mean [Right Arm] 117 Blood Pressure Source [Right Arm] Automatic Cuff 02 Sat by Pulse Oximetry 95 96 96 Oxygen Delivery Method Room Air 01/12/25 22:30 01/13/25 00:43 01/13/25 01:51 Temperature 98.6 F 98.9 F Temperature Source Oral Pulse Rate 91 H 91 H 89 Pulse Rate [Left] Respiratory Rate 16 16 Blood Pressure 166/90 H 166/90 H 161/99 H Blood Pressure [Right Arm] Blood Pressure Mean 115 Blood Pressure Mean [Right Arm] Blood Pressure Source [Right Arm] 02 Sat by Pulse Oximetry 96 97 Oxygen Delivery Method Room Air Room Air Lab Data Lab Results 01/12/25 22:05: WBC 6.0, RBC 5.28, Hgb 16.3, Hct 47.9, MCV 90.7, MCH 30.9, MCHC 34.0, RDW 13.0, Plt Count 207, MPV 10.0, Neut % (Auto) 71.8, Lymph % (Auto) 14.8, Scott % (Auto) 11.8 H, Eos % (Auto) 0.7, Baso % (Auto) 0.7, Neut # (Auto) 4.3, Lymph # (Auto) 0.9, Scott # (Auto) 0.7, Eos # (Auto) 0.0, Baso # (Auto) 0.0, VBG pH 7.36, VBG pCO2 44.5, VBG pO2 49.6 H, VBG HCO3 24.5, VBG Total CO2 25.9, VBG O2 Saturation 85.4 H, VBG Base Excess -0.9, VBG Lactic Acid 1.7, Sodium 142, Potassium 3.7, Chloride 104, Carbon Dioxide 22, Anion Gap 19.7 H, BUN 15, Creatinine 0.90, Estimated Creat Clear 132, Estimated GFR 87, Est GFR ( Amer) 105, Glucose 99, Calcium 10.2, Phosphorus 3.1, Magnesium 1.8, Total Bilirubin 0.7, AST 40, ALT 49, Alkaline Phosphatase 111, Total Creatine Kinase 66, Total Protein 8.4 H, Albumin 5.1 H, Globulin 3.3 H, Albumin/Globulin Ratio 1.5, TSH 0.82, Free T4 1.57 01/12/25 22:45: SARS-CoV-2 (PCR) Not detected, Influenza A Untype (PCR) Not detected, Influenza Type B (PCR) Not detected 01/12/25 22:46: Urine Color Yellow, Urine Appearance Clear, Urine pH 6.0, Ur Specific Celeste >= 1.030, Urine Protein 1+ A, Urine Glucose (UA) Negative, Urine Ketones 3+, Urine Blood Negative, Urine Nitrate Negative, Urine Bilirubin 2+ A, Urine Urobilinogen 0.2, Ur Leukocyte Esterase Negative, Urine RBC None, Urine WBC Occasional, Ur Squamous Epith Cells Occasional, Urine Bacteria 1+, Urine Opiates Screen Negative, Urine Methadone Screen Negative, Ur Barbituates Screen Positive H, Ur Phencyclidine Scrn Negative, Ur Amphetamines Screen Negative, U Benzodiazepines Scrn Negative, Urine Cocaine Screen Negative, U Marijuana (THC) Screen Negative Orders (Tests/Meds): ORDERS Category Date Time Status CT head/brain wo con Stat Cat Scan 01/12/25 21:27 Completed CXR --portable [XR chest portable] Stat Exams 01/12/25 21:27 Completed CBC w/Auto Diff [Complete Blood Count Auto Diff] Stat Lab 01/12/25 22:05 Completed CK [Creatine Kinase] Stat Lab 01/12/25 22:05 Completed CMP [Comprehensive Metabolic Panel] Stat Lab 01/12/25 22:05 Completed Free T4 (Free Thyroxine) Stat Lab 01/12/25 22:05 Completed Magnesium Stat Lab 01/12/25 22:05 Completed PHOS [Phosphorous] Stat Lab 01/12/25 22:05 Completed Rapid PCR Covid and Flu A/B Stat Lab 01/12/25 22:45 Completed TSH [Thyroid Stimulating Hormone] Stat Lab 01/12/25 22:05 Completed UA [Urinalysis and Microscopic] Stat Lab 01/12/25 22:46 Completed UDS [Drug Screen,Urine] Stat Lab 01/12/25 22:46 Completed Urine Culture Stat Micro 01/12/25 22:46 Completed VBG [Venous Blood Gas] Stat RT 01/12/25 22:05 Completed Medical Decision Narrative: Quevedo: Patient remained in the ER for an extended period of time after being discharged by the previous provider to due to transportation problems unfortunately [facility] to transport the patient back to the facility because he is a [facility] of the [facility]. There was no other transportation available at this time. He remained in the ER. He has stayed stable, comfortable, he did not want anything to eat but is tolerating oral intake of fluids. He was well-appearing. Eventually patient was able to go with the [facility] and left the ER in stable condition. Critical Care <Eliud Wilson MD - Last Filed: 01/13/25 03:07> Critical Care Time Critical Care Time: No
[2025-01-12 21:54] VITALS: BP 159/100; PULSE 99; O2SAT 96
[2025-01-12 22:00] VITALS: BP 148/97; PULSE 98; O2SAT 96
[2025-01-12 22:14] LABS: Hematocrit 47.9 % (42.0-52.0); Hemoglobin 16.3 g/dL (14.1-18.0); Immature Granulocytes % 0.2 %; Mean Corpuscular HGB Conc 34.0 g/dL (31.8-35.4); Mean Corpuscular Hemoglobin 30.9 pg (27.0-31.2); Mean Corpuscular Volume 90.7 fl (80-94); Nucleated Red Blood Cells % 0 %; Platelet Count 207 K/mm3 (142-424); Red Blood Count 5.28 M/mm3 (4.60-6.20); Red Cell Distribution Width-SD 43.0 fL; White Blood Count 6.0 K/mm3 (4.8-10.8)
[2025-01-12 22:18] LABS: Albumin Level 5.1 g/dl (3.5-5.0); Chloride 104 mmol/L (98-107); Sodium 142 mmol/L (136-145)
[2025-01-12 22:19] LABS: Potassium 3.7 mmoL/L (3.5-5.1)
[2025-01-12 22:21] LABS: Alanine Aminotransferase 49 U/L (12-78); Albumin/Globulin Ratio 1.5 (1.1-1.8); Alkaline Phosphatase 111 U/L (38-126); Anion Gap 19.7 mEq/L (5-15); Aspartate Amino Transferase 40 U/L (17-59); Bilirubin,Total 0.7 mg/dl (0.2-1.3); Blood Urea Nitrogen 15 mg/dl (9-20); Carbon Dioxide 22 mmol/L (22.0-30.0); Creatinine Clearance Estimated 132 mL/min (50-200); Creatinine,Serum 0.90 mg/dl (0.66-1.25); Estimated Glomerular Filt Rate 87 ml/min (>60); GFR (African American) 105 ML/MIN (>60); Globulin 3.3 g/dL (1.3-3.2); Phosphorous 3.1 mg/dl (2.5-4.5); Total Protein,Serum 8.4 g/dl (6.3-8.2)
[2025-01-12 22:22] LABS: Calcium 10.2 mg/dl (8.4-10.2); Creatine Kinase 66 U/L (55-170); Glucose 99 mg/dl (74-100); Magnesium 1.8 mg/dl (1.6-2.3)
[2025-01-12 22:30] VITALS: BP 166/90; PULSE 91; O2SAT 96
[2025-01-12 22:30] LABS: Lactate Venous 1.7 mmol/L (0.4-2.0); VBG HCO3 24.5 mmol/L (23-30); VBG PCO2 44.5 mmol/L (35-51); VBG PH 7.36 mmol/L (7.31-7.41); VBG PO2 49.6 mmol/L (28-40)
[2025-01-12 22:45] LABS: Free T4 (Free Thyroxine) 1.57 ng/dl (0.78-2.19)
[2025-01-12 22:52] LABS: Thyroid Stimulating Hormone 0.82 uIU/mL (0.465-4.68)
[2025-01-12 22:54] LABS: Microscopic, Urine URINE MICROSCOPIC (MICROSCOPIC)
[2025-01-12 22:54] LABS: Coronavirus 19, PCR Not Detected (NotDetected); Influenza A, PCR Not Detected (NotDetected); Influenza B, PCR Not Detected (NotDetected)
[2025-01-12 22:57] LABS: Color,Urine YELLOW (Yellow); Glucose,Urine (UA) Negative (Negative); Ketones,Urine 3+ (Negative); Leukocyte Esterase,Urine Negative (Negative); PH,Urine 6.0 (5.0-8.5); Protein,Urine 1+ (Negative); Specific Gravity, Urine >= 1.030 (1.005-1.030); Urobilinogen,Urine 0.2 EU/dl (0.2)
[2025-01-12 23:02] LABS: Bilirubin,Urine 2+ (Negative)
[2025-01-12 23:09] LABS: Benzodiazepines Screen,Urine Negative ng/ml (<200)
[2025-01-12 23:10] LABS: Amphetamine/Metha Screen,Urine Negative ng/ml (<1000); Bacteria,Urine 1+ /lpf; Squamous Epithelial Cell,Urine Occasional #/hpf (0-5); WBC,Urine Occasional #/hpf (0-3)
[2025-01-12 23:11] LABS: Barbiturates Screen,Urine Positive ng/ml (<200); Methadone Screen,Urine Negative ng/ml (<300)
[2025-01-12 23:13] LABS: Opiate Screen,Urine Negative ng/ml (<300)
[2025-01-12 23:14] LABS: Phencyclidine Screen,Urine Negative ng/ml (<25)
--- NOTE | 2025-01-12 23:58 | PC.NURSE ---
Phone call made to [facility] to inform facility that patient was dc and ready for return home. 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 Employee states that would have to be held in the ER until shift change until staff with car can come and molded goods spot picker patient. He also stated that we would need to contact police to bring him there since they have done it before. [id number] Spoke with employee who has clinical documentation manager on the phone at this time. I informed staff that they would need to work on transportation arrangements, and contact centre supervisor for assistance if they weren't able to come and pick patient up. Certified Alcohol And Drug Counselor stated that she would call Irma for further information. Awaiting phone call back at this time.
[2025-01-13 00:43] VITALS: BP 166/90; PULSE 91; RESP 16; TEMP 37; O2SAT 100
[2025-01-13 01:51] VITALS: BP 161/99; PULSE 89; RESP 16; TEMP 37.2; O2SAT 97
--- NOTE | 2025-01-13 02:14 | PC.NURSE ---
Spoke with employee at [facility] to infer about patient receiving night time medications on 01/12/25. Employee does state that patient did receive phenytoin and phenobarb prior to ED arrival. He also stated that his human resources district manager was unable to get ahold augusto Solis and that patient would have to stay at [facility] until they could arrange transport after 8am.
--- NOTE | 2025-01-13 02:25 | PC.NURSE ---
RN called and spoke with Monty at [facility], to inform them Mr. Lockwood was being DC and would be enroute back to their facility. [facility] staff was informed they would need to be waiting outside to meet staff members to get the patient.
== END 2025-01-13 02:32 | disposition home or self-care (01) ==
PROVIDERS: Emergency Provider Student in an Organized Health Care Education/Training Program
DX: R41.82 Altered mental status, unspecified (principal); G40.909 Epilepsy, unspecified, not intractable, without status epilepticus; F31.9 Bipolar disorder, unspecified
CPT/HCPCS: 70450; 71045; 80053; 80307; 81001; 82550; 82803; 83735; 84100; 84439; 84443; 85025; 87086; 87636; 99283; 99284